=== PATIENT | female | born 1960 | race American Indian/Alaskan Native ===

== ENCOUNTER → 2018-01-18 07:03 | Day surgery (SDC) | payer MEDICAID, OTHER, SELFPAY ==
[2018-01-18] VITALS (7 sets, daily range): BP systolic 81–141; BP diastolic 43–93; PULSE 78–95; RESP 14–16; TEMP 36.4–36.8; O2SAT 95–98; BMI 49.0
--- NOTE | 2018-01-18 | PATH_ITS ---
[facility] Accession Number: [id number] . 01 Material submitted: . ANTRUM BIOPSIES . 02 Diagnosis: Biopsies Gastric Antrum: Mild chronic gastritis. Negative for evidence of Helicobacter on H/E stain. Negative for intestinal metaplasia. Negative for dysplasia and malignancy. [facility]/01/19/2018 . 02 Electronically signed: . Kelechi Rivera MD, Pathologist NPI- [id number] . 01 Gross description: . Received in one formalin-filled container, labeled with the patient's name, labeled antrum, are four less than 0.1 cm to 0.3 cm portions of tissue, entirely submitted in one cassette. ([id number]) /FRR . 02 Pathologist provided ICD-10: K29.70 . 02 CPT . 474392 Performed at: 01 [facility] [address] [id number] MD Sivakumar Landeros MD Phone: [phone] Performed at: 02 [facility] [address] [place], [place] [id number] MD Rodney Urena MD Phone: [phone]
[2018-01-18] MEDS: SODIUM CHLORIDE 0.9% 1,000 ML 200 ML IV (07:45)
--- NOTE | 2018-01-18 07:52 | PM.HP.1 ---
History of Present Illness Date Patient Seen: 01/18/18 Time Patient Seen: 07:52 Chief complaint: EGD [id number] Narrative: HISTORY OF PRESENT ILLNESS: A 56-year-old obese female recently evaluated for diarrhea and excessive belching and gastric bloating by her primary physician who presents now for further evaluation. She states that her symptoms first began when she was started on Lamictal for depression. She had progressively increasing doses of the medication beginning at 50 mg, then 100 mg, then 150 mg. She noticed that with each increase in her dose, over time her symptoms were exacerbated. She was eventually discontinued from the Lamictal and took her last dose approximately 8 days ago now. Her diarrhea symptoms have completely resolved but she continues to have significant issues with belching and retrosternal heartburn. Her major concern is the frequency of the belching. She states that any food, either solid or liquid, will result in these symptoms. She has had no nausea or vomiting, however. Denies any abdominal pain elsewhere. No unanticipated weight loss. No history of melena, hematochezia, or bright red blood per rectum. PAST MEDICAL HISTORY: 1. Depression. 2. Anxiety. 3. Hypertension. 4. Obesity. 5. Type 2 diabetes mellitus. 6. Diverticulitis in the past. She denies any coronary disease, stroke, or myocardial infarction. PAST SURGICAL HISTORY: 1. Sigmoid colectomy with laparoscopic-assisted approach approximate 2010. 2. Bilateral tubal ligation. 3. Right knee replacement. 4. Open cholecystectomy. 5. Tonsillectomy. 6. Colonoscopy, 2010, which he reports was normal other than diverticula. FORMERLY [facility], 1928–1983 Social History household members: family Meds Home Medications Medication Instructions Recorded Confirmed Type lamotrigine [Lamictal] #0 11/19/17 History Nebulizer: Home Unit See Label Instructions .ROUTE 01/18/18 01/18/18 History .COMPLEX Neurontin 200 mg PO DAILY 01/18/18 01/18/18 History albuterol sulfate [Proventil HFA] 0 INH Q4HP PRN MDD unknown 01/18/18 History cyclobenzaprine 10 mg PO QDAY 01/18/18 01/18/18 History omeprazole 40 mg PO DAILY 01/18/18 01/18/18 History Allergies Allergy/AdvReac Type Severity Reaction Status Date / Time amoxicillin [AMOXICILLIN] Allergy Severe RASH Unverified 12/16/17 11:50 latex [LATEX] Allergy Severe HIVES, Unverified 12/16/17 11:50 RESPIRATORY DISTRESS levalbuterol [LEVALBUTEROL] Allergy Severe AIRWAY Unverified 12/16/17 11:50 OCCLUSION Penicillins [PENICILLINS] Allergy Severe RASH Unverified 12/16/17 11:50 duloxetine [DULOXETINE] AdvReac Mild AGITATION Unverified 12/16/17 11:50 Review of Systems Review of Systems All systems reviewed & are unremarkable except as noted in HPI and below Exam Vital Signs (past 8 hours): Vital Signs - 8 hr 01/18/18 07:28 Temperature 98.0 F Pulse Rate 95 H Respiratory Rate 16 Blood Pressure 141/93 H Pulse Oximetry 96 Pulse Oximetry 96 Oxygen Delivery Method Room Air Narrative Exam Narrative: No acute distress. Alert oriented x3. Obese Regular rate and rhythm Abdomen soft, nondistended, nontender, no masses Extremities show no clubbing or cyanosis Assessment & Plan Plan: Plan: IMPRESSION: A 56-year-old female with upper gastrointestinal symptoms consisting of intractable belching and reflex disease. She is receiving maximal medical management without significant relief. PLAN: I discussed my impression and findings with the patient in detail. I suspect that the side effects of the Lamictal may have some causal element. However, there is clearly the possibility of ulcer disease or even diabetic gastroparesis. Because of her reflex, there is a possibility of Xie esophagus as well which is a concern for her today. I therefore recommend EGD with potential biopsy. Technical details of the procedure were discussed. Risks, benefits, and alternatives were explained. Risks including, but not limited to, sedation, aspiration, bleeding, pain, missed lesion, esophageal perforation, gastric perforation, duodenal perforation, need for major thoracic surgery, need for major abdominal surgery, and all attendant risks of major surgery were explained in detail. I also explained that the study may be entirely nondiagnostic. If there is no clear etiology for her symptoms, then she may benefit from nuclear gastric emptying scan which also explained to her today. All questions were answered to her satisfaction, and she voiced understanding. Consent was placed on the chart. We will proceed as above.
--- NOTE | 2018-01-18 07:54 | PM.PREOP ---
Pre-operative Note Interval Note Pre-op Check: History & Physical Reviewed, Exam Performed and History & Physical exam performed today H&P completed within 30 days and has changed as indicated here:: H and P in chart today. ASA Class (for procedural sedation): II
[2018-01-18] MEDS: MIDAZOLAM 5 MG/5 ML VIAL IV (08:21)
--- NOTE | 2018-01-18 08:24 | PM.OP.ENDO ---
Operative Date/Time/Diagnoses - Date of procedure: 01/18/18 Time of procedure: 08:25 Pre-op diagnosis: Dysphagia and reflux Post-op diagnosis: same Procedure & Clinicians Study performed: 1. Esophagogastroduodenoscopy with cold forceps biopsy 2. Sedation per surgeon Same procedure as scheduled: Yes Indications: 57-year-old female with significant reflux symptoms refractory to medical management. EGD was recommended. Surgeon: Que Covarrubias Procedure Notes SCOAP/Timeout: Yes/ 08:10 Procedure in detail: After obtaining informed consent, the patient was brought to the GI suite and placed in the left lateral decubitus position on the examination table. After placement of appropriate monitors, the patient was given incremental doses of Versed and Fentanyl until an appropriate level of sedation was achieved. A time out was held per SCOAP protocol. A bite block was gently placed between the patient's teeth. The endoscope was lubricated and then passed into the patient's posterior oropharynx. The esophagus was cannulated under direct vision and the scope was passed to the second portion of the duodenum without difficulty. The scope was then withdrawn with careful examination of all areas of the upper GI tract and mucosa. In the stomach, the instrument was retroflexed and the GE junction examined. The scope was straightened and the procedure continued with examination of the remainder of the upper GI tract. Findings are noted above. Air was aspirated from the stomach and the endoscope gently removed from the esophagus. The patient was allowed to awaken from sedation without difficulty and taken to the post-anesthesia care unit in good condition. Scope withdrawal time: Not applicable Sedation minutes: 7 Findings: gastritis and other findings (1. No ulcer disease 2. No neoplastic disease 3. No esophagitis with Z-line at 40 cm from incisors 4. Normal duodenum) Specimen(s): other (Antral biopsies) Complications: none Recommendations: No ASA/NSAIDS and Continue medication(s) Follow up: weeks (Two weeks with Dr. Covarrubias) Disposition: PACU
[2018-01-18] MEDS: LIDOCAINE 4% SOLN 50 ML 20 ML TOP (08:30)
[2018-01-18] MEDS: TETRACAINE/BENZOCAINE/BUTAMBEN (CETACAINE) BOTTLE 1 SPRAY TOP (08:32)
[2018-01-18] MEDS: fentaNYL 250 MCG/5 ML INJ IV (08:35)
== END | disposition home or self-care (01) ==
PROVIDERS: Family Provider Family Medicine; PCP Family Medicine; Visit Provider Surgery
PROC: 0DJ08ZZ Inspection of Upper Intestinal Tract, Via Natural or Artificial Opening Endoscopic (ICD-10-PCS; CPT 43235; principal; 2018-01-18 07:45)
DX: K29.70 Gastritis, unspecified, without bleeding (principal); R13.10 Dysphagia, unspecified; K21.9 Gastro-esophageal reflux disease without esophagitis; E66.9 Obesity, unspecified; R19.7 Diarrhea, unspecified; R14.2 Eructation; F41.9 Anxiety disorder, unspecified; I10 Essential (primary) hypertension; E11.9 Type 2 diabetes mellitus without complications
CPT/HCPCS: 43239; 88305; 99152; J2250; J3010

== ENCOUNTER 2018-05-17 12:30 | Outpatient (RCR) | payer MEDICAID, OTHER, SELFPAY ==
--- NOTE | 2018-01-29 15:23 | PT.OTN ---
Physical Therapy Treatment Note PT-OP-A Visit Information Start: 01/29/18 07:59 Freq: Status: Active Protocol: Document 01/29/18 12:30 SAK (Rec: 01/29/18 15:23 [facility] [id number]) Out-Patient Physical Therapy Visit Information Visit Information Visit Type Treatment Note Visit Start Time 12:30 Visit Stop Time 13:15 Total Visit Minutes 45 Visit Number 2 Number of OCCUPATIONAL HYGIENIST Visits 0 Evaluation Information Evaluation Date 12/29/17 PT-OP-C Subjective Start: 01/29/18 07:59 Freq: Status: Active Protocol: Document 01/29/18 12:30 SAK (Rec: 01/29/18 15:23 [facility] [id number]) OP-PT Subjective Patient Comments Patient Comments Patient excited to start aquatic therapy; hoping to decrease her pain and improve her activity tolerance. Wants to start graduate school in the fall. Reports cues for T- Christopher arms during functional activities very helpful for body mechanics. PT-OP-S Aquatic Treatment Start: 01/29/18 07:59 Freq: Status: Active Protocol: Document 01/29/18 12:30 SAK (Rec: 01/29/18 15:23 [facility] [id number]) Aquatics Treatment Pool Entry/Exit Pool Entry/Exit Method Stairs Assistance Standby Assistance Water Walking Marching Water Level Chest Level Walking Equipment none Level of Assistance Verbal Cues Sideways Water Level Chest Level Walking Equipment none Level of Assistance Verbal Cues Backwards Water Level Chest Level Walking Equipment none Level of Assistance Verbal Cues Forwards Water Level Chest Level Walking Equipment none Level of Assistance Verbal Cues Lower Extremity Exercises 2 Details squats Body Position Standing Water Level Chest Level 1 Details standing hip flex/ext, ab/ad, circles CW and CCW Body Position Standing Water Level Chest Level Lower Extremity Stretches 2 Details hamstring stretch Body Position Standing Water Level Chest Level Equipment Ankle Floats; small Reps/Duration 2 1 Details SKTC, DKTC Body Position Standing Water Level [place] Equipment Small Noodle Reps/Duration 2 Upper Extremity Exercises 1 Details standing hor ab/ad, flex ext Body Position Standing Water Level Chest Level [place] Activities [place] Activities Bicycle Equipment small noodle Duration 12 min Comments verbal and manual cues Other 1 Details deep water hang Body Position Standing Water Level [place] Equipment small noodle Reps/Duration 2 min PT-OP-T Assessment and Plan Start: 01/29/18 07:59 Freq: Status: Active Protocol: Document 01/29/18 12:30 LUCIO (Rec: 01/29/18 15:23 LUCIO [id number]) Physical Therapy Assessment Assessment Summary Assessment Moderate cues for postural alignment and core stabilization during all activities. Responds well to verbal and manual cues. Physical Therapy Plan Frequency and Duration Frequency of Treatment 2x/Week Duration of Treatment 2 months Plan of Care Start Date 12/29/17 Plan of Care End Date 02/28/18 Next Visit Focus/Plan Next Note Type Treatment Note Next Visit Plan Eval response to first aquatic PT session and progress as tolerated. Please Sign and Return: I have reviewed this Plan of Care and certify that the skilled therapy services above are required to meet the patient???s needs. Physician Signature Date Printed Name and Credentials Clinical Instructor Signature Printed Name and Credentials
--- NOTE | 2018-05-05 15:47 | PT.OTN ---
Current Diagnoses Spinal stenosis, lumbosacral region (01/29/18) Low back pain (01/29/18) Abnormal posture (01/29/18) Weakness (01/29/18) Physical Therapy Treatment Note PT-OP-A Visit Information Start: 01/29/18 07:59 Freq: Status: Active Protocol: Document 05/05/18 11:30 CLB (Rec: 05/05/18 15:47 CLB [email or web address]) Out-Patient Physical Therapy Visit Information Visit Information Visit Type Treatment Note Visit Start Time 11:30 Visit Stop Time 12:15 Visit Number 3 Number of MEAT WRAPPER Visits 1 PT-OP-C Subjective Start: 01/29/18 07:59 Freq: Status: Active Protocol: Document 05/05/18 11:30 CLB (Rec: 05/05/18 15:47 CLB [email or web address]) OP-PT Subjective Patient Comments Patient Comments Pt happy to be back in the pool. Pt reporting pain in her left hip after hauling rock by pulling them sideways. PT-OP-S Aquatic Treatment Start: 01/29/18 07:59 Freq: Status: Active Protocol: Document 05/05/18 11:30 CLB (Rec: 05/05/18 15:47 CLB [email or web address]) Aquatics Treatment Pool Entry/Exit Pool Entry/Exit Method Stairs Assistance Standby Assistance Water Walking Backwards Water Level Chest Level Walking Equipment none Level of Assistance Verbal Cues Forwards Water Level Chest Level Level of Assistance Verbal Cues Lower Extremity Exercises 2 Details squats Body Position Standing Water Level Chest Level 1 Details standing hip flex/ext, circles CW and CCW Body Position Standing Water Level Chest Level Comments no ab/add due to L hip pain. Lower Extremity Stretches 2 Details hamstring stretch Body Position Standing Water Level Chest Level Equipment Ankle Floats Reps/Duration 2 Upper Extremity Exercises 1 Details standing hor ab/ad, flex ext Body Position Standing Water Level Chest Level PT-OP-T Assessment and Plan Start: 01/29/18 07:59 Freq: Status: Active Protocol: Document 05/05/18 11:30 CLB (Rec: 05/05/18 15:47 CLB [email or web address]) Physical Therapy Assessment Assessment Summary Assessment Pt needing cues for posture and core activation with deep water and ther ex. Physical Therapy Plan Frequency and Duration Frequency of Treatment 2x/Week Duration of Treatment 2 months Plan of Care Start Date 12/29/17 Plan of Care End Date 02/28/18 Next Visit Focus/Plan Next Note Type Treatment Note Next Visit Plan Progress as tolerated.
--- NOTE | 2018-05-12 09:33 | PT.OTRE ---
Current Diagnoses Spinal stenosis, lumbosacral region (01/29/18) Low back pain (01/29/18) Abnormal posture (01/29/18) Weakness (01/29/18) Provider Visit Care Team Role Provider Type Roverto See MD Attending Provider Physician Family Provider Primary Care Provider Specialty: Family Practice Address: [address] [place] [address], [facility] Email: Physical Therapy Re-Evaluation PT-OP-A Visit Information Start: 01/29/18 07:59 Freq: Status: Active Protocol: Document 05/05/18 11:30 CLB (Rec: 05/05/18 15:47 CLB [email or web address]) Out-Patient Physical Therapy Visit Information Visit Information Visit Type Treatment Note Visit Start Time 11:30 Visit Stop Time 12:15 Visit Number 3 Number of PARTS PULLER Visits 1 PT-OP-C Subjective Start: 01/29/18 07:59 Freq: Status: Active Protocol: Document 05/05/18 11:30 CLB (Rec: 05/05/18 15:47 CLB [email or web address]) OP-PT Subjective Patient Comments Patient Comments Pt happy to be back in the pool. Pt reporting pain in her left hip after hauling rock by pulling them sideways. PT-OP-T Assessment and Plan Start: 01/29/18 07:59 Freq: Status: Active Protocol: Document 05/05/18 11:30 CLB (Rec: 05/05/18 15:47 CLB [email or web address]) Physical Therapy Assessment Assessment Summary Assessment Pt needing cues for posture and core activation with deep water and ther ex. Physical Therapy Plan Frequency and Duration Frequency of Treatment 2x/Week Duration of Treatment 2 months Plan of Care Start Date 12/29/17 Plan of Care End Date 02/28/18 Next Visit Focus/Plan Next Note Type Treatment Note Next Visit Plan Progress as tolerated.
--- NOTE | 2018-05-12 09:33 | PT.OPPOC ---
Current Diagnoses Spinal stenosis, lumbosacral region (01/29/18) Low back pain (01/29/18) Abnormal posture (01/29/18) Weakness (01/29/18) Provider Visit Care Team Role Provider Type Roverto See MD Attending Provider Physician Family Provider Primary Care Provider Specialty: Family Practice Address: [address] [place] [address] Email: Plan Of Care PT-OP-T Assessment and Plan Start: 01/29/18 07:59 Freq: Status: Active Protocol: Document 05/05/18 11:30 CLB (Rec: 05/05/18 15:47 CLB [email or web address]) Physical Therapy Assessment Assessment Summary Assessment Pt needing cues for posture and core activation with deep water and ther ex. Physical Therapy Plan Frequency and Duration Frequency of Treatment 2x/Week Duration of Treatment 2 months Plan of Care Start Date 12/29/17 Plan of Care End Date 02/28/18 Next Visit Focus/Plan Next Note Type Treatment Note Next Visit Plan Progress as tolerated. Plan of Care Dates Plan of Care Start Date 05/05/18 Plan of Care End Date 08/05/18 Please Sign and Return: I have reviewed this Plan of Care and certify that the skilled therapy services above are required to meet the patient?s needs. Physician Signature Date Printed Name and Credentials Clinical Instructor Signature Printed Name and Credentials
--- NOTE | 2018-05-17 15:32 | PT.OTN ---
Current Diagnoses Spinal stenosis, lumbosacral region (05/17/18) Low back pain (05/17/18) Abnormal posture (05/17/18) Weakness (05/17/18) Physical Therapy Treatment Note PT-OP-A Visit Information Start: 01/29/18 07:59 Freq: Status: Active Protocol: Document 05/17/18 12:30 LJ (Rec: 05/17/18 15:32 LJ [email or web address]) Out-Patient Physical Therapy Visit Information Visit Information Visit Type Treatment Note Number of LEGAL OFFICE ADMINISTRATOR Visits 1 PT-OP-C Subjective Start: 01/29/18 07:59 Freq: Status: Active Protocol: Document 05/17/18 12:30 LJ (Rec: 05/17/18 15:32 LJ [email or web address]) OP-PT Subjective Patient Comments Patient Comments Pt reported having cortisone injection in L hip on Thursday. States her hip feels good and currently has no pain. She reported that she fell on Thursday and now her R knee is painful. PT-OP-S Aquatic Treatment Start: 01/29/18 07:59 Freq: Status: Active Protocol: Document 05/17/18 12:30 LJ (Rec: 05/17/18 15:32 LJ [email or web address]) Aquatics Treatment Pool Entry/Exit Pool Entry/Exit Method Stairs Assistance Standby Assistance Water Walking Other- 1 Water Level Chest Level Level of Assistance Standby Assistance Comments circumduction legs Marching Water Level Chest Level Walking Equipment none Level of Assistance Verbal Cues Sideways Water Level Chest Level Walking Equipment none Level of Assistance Verbal Cues Comments stepping over object pattern Backwards Water Level Chest Level Walking Equipment none Level of Assistance Verbal Cues Forwards Water Level Chest Level Level of Assistance Verbal Cues Lower Extremity Exercises 2 Details squats Body Position Standing Water Level Chest Level 1 Details standing hip flex/ext, ab/ad, circles CW and CCW Body Position Standing Water Level Chest Level Comments abd/add ok d/t injection Lower Extremity Stretches 2 Details hamstring stretch Body Position Standing Water Level Chest Level Reps/Duration 2 1 Details SKTC, DKTC Body Position Standing Water Level Chest Level Reps/Duration 2 Upper Extremity Exercises 1 Details standing hor ab/ad, flex ext Body Position Standing Water Level Chest Level Olds Activities Olds Activities Bicycle [place] Hip Abduction/Adduction Sit Kicks Equipment small noodle Comments cues for posture PT-OP-T Assessment and Plan Start: 01/29/18 07:59 Freq: Status: Active Protocol: Document 05/17/18 12:30 ADELAIDE (Rec: 05/17/18 15:32 ADELAIDE [email or web address]) Physical Therapy Assessment Assessment Summary Assessment Pt experienced repeated cramping of LLE during stretching. Tolerated abd/add of LEs w/o pain. Physical Therapy Plan Frequency and Duration Frequency of Treatment 2x/Week Duration of Treatment 3 months Plan of Care Start Date 05/05/18 Plan of Care End Date 08/05/18 Therapeutic Interventions Therapeutic Interventions Aquatic Therapy Patient/Caregiver Education Self-Care/Home Management Next Visit Focus/Plan Next Note Type Treatment Note Next Visit Plan Aquatic therapy for pain management, strengthing, ROM.
--- NOTE | 2018-06-11 14:52 | PT.OTN ---
Current Diagnoses Spinal stenosis, lumbosacral region (05/17/18) Low back pain (05/17/18) Abnormal posture (05/17/18) Weakness (05/17/18) Physical Therapy Treatment Note PT-OP-A Visit Information Start: 01/29/18 07:59 Freq: Status: Active Protocol: Document 06/11/18 14:42 SAK (Rec: 06/11/18 14:51 SAK [id number]) Out-Patient Physical Therapy Visit Information Visit Information Visit Type Treatment Note Total Visit Minutes 45 Number of SENIOR STEREO COMPILER TEAM LEAD Visits 1 Evaluation Information Evaluation Date 12/29/17 PT-OP-C Subjective Start: 01/29/18 07:59 Freq: Status: Active Protocol: Document 06/11/18 14:42 SAK (Rec: 06/11/18 14:51 SAK [id number]) OP-PT Subjective Patient Comments Patient Comments States she and her mother went on trip to [facility], did a lot of walking and picking up agates off the beach; back and hip more sore. Glad to come to aquatic therapy. PT-OP-S Aquatic Treatment Start: 01/29/18 07:59 Freq: Status: Active Protocol: Document 06/11/18 14:42 SAK (Rec: 06/11/18 14:51 SAK [id number]) Aquatics Treatment Pool Entry/Exit Pool Entry/Exit Method Stairs Assistance Standby Assistance Water Walking Sideways Water Level Chest Level Walking Equipment none Level of Assistance Verbal Cues Comments stepping over object pattern Forwards Water Level Chest Level Level of Assistance Verbal Cues Lower Extremity Exercises 2 Details squats Body Position Standing Water Level Chest Level 1 Details standing hip circles Reps/Duration 10x ea CW, CCW Lower Extremity Stretches 2 Details hamstring stretch Body Position Standing Water Level Chest Level Reps/Duration 2 1 Details SKTC, DKTC Body Position Standing Water Level Chest Level Reps/Duration 2 Upper Extremity Exercises 1 Details standing hor ab/ad, flex ext Body Position Standing Water Level Chest Level Comments core stabilization emphasis [place] Activities [place] Activities Bicycle Cross [place] Running Hip Abduction/Adduction Sit Kicks Equipment belt Comments added 4 cycles of interval running 30:30 tethered 28 min total in deep water PT-OP-T Assessment and Plan Start: 01/29/18 07:59 Freq: Status: Active Protocol: Document 06/11/18 14:42 SAK (Rec: 06/11/18 14:51 [facility] [id number]) Physical Therapy Assessment Assessment Summary Assessment Increased exercise tolerance with patient demonstrating improved postural awareness. Initially required physical and verbal cues for stability using flotation belt. Physical Therapy Plan Frequency and Duration Frequency of Treatment 2x/Week Duration of Treatment 3 months Plan of Care Start Date 05/05/18 Plan of Care End Date 08/05/18 Therapeutic Interventions Therapeutic Interventions Aquatic Therapy Patient/Caregiver Education Self-Care/Home Management Next Visit Focus/Plan Next Note Type Treatment Note Next Visit Plan Continue progression of aquatic therapy, add resistance fins as tolerated.
--- NOTE | 2018-08-27 14:34 | PT.OPDS ---
Current Diagnoses Spinal stenosis, lumbosacral region (05/17/18) Low back pain (05/17/18) Abnormal posture (05/17/18) Weakness (05/17/18) Provider Visit Care Team Role Provider Type Roverto See MD Attending Provider Physician Family Provider Primary Care Provider Specialty: Family Practice Address: [address] [place] [address], [facility] Email: Visit Number Visit Number 3 Discharge Summary PT-OP-C Subjective Start: 01/29/18 07:59 Freq: Status: Active Protocol: Document 06/11/18 14:42 SAK (Rec: 06/11/18 14:51 SAK [id number]) OP-PT Subjective Patient Comments Patient Comments States she and her mother went on trip to [facility], did a lot of walking and picking up agates off the beach; back and hip more sore. Glad to come to aquatic therapy. PT-OP-T Assessment and Plan Start: 01/29/18 07:59 Freq: Status: Active Protocol: Document 08/27/18 14:32 SAK (Rec: 08/27/18 14:34 SAK [id number]) Physical Therapy Assessment Assessment Summary Assessment Patient has not attended PT for 2 months, able to perform aquatic exercises independently at this time; should do well with continued independent aquatic exercise. Physical Therapy Plan Discharge Physical Therapy Discharge Reasons No Longer Attending PT Discharge Comments May benefit from further PT in the future.
== END 2018-09-13 15:41 | disposition home or self-care (01) ==
LOC: PHYS 12:30
PROVIDERS: Family Provider Family Medicine; PCP Family Medicine; Visit Provider Family Medicine
DX: M54.5 Low back pain (principal); M48.07 Spinal stenosis, lumbosacral region; R53.1 Weakness; R29.3 Abnormal posture
CPT/HCPCS: 97113

== ENCOUNTER → 2018-08-04 15:10 | Outpatient (CLI) | payer OTHER, SELFPAY ==
--- NOTE | 2018-08-04 | DI.ECHO.S_ITS ---
[place] [facility] +---------+ : : [address] : : : : [id number] : : : : Phone: [phone] Echocardiogram Report + + :Name: SEAN COLLADO Study Date: 08/04/2018 Height: 64 in : :[facility] Exam Location: [facility] Weight: 266 lb : : Gender: Female BSA: 2.2 m2 : :: 1960 Age: 57 yrs BP: 122/82 mmHg: :Reason For Study: Peripheral Edema : :Ordering Physician: Esperanza : :Kumar Performed By: Nury Sorenson : :Referring: ESPERANZA TIERNEY : + + Interpretation Summary The left ventricle is normal in size. The ejection fraction is estimated to be 60-65%. The right ventricle is normal in size and function. No significant valvular pathology seen. The IVC is of normal diameter and collapses greater than 50% with a sniff. This suggests a low right atrial pressure of 3 mm Hg. Procedure: A two-dimensional transthoracic echocardiogram with color flow and Doppler was performed. The study quality was technically adequate. There is no prior echocardiogram noted for this patient. The patient was in normal sinus rhythm during the exam. Left Ventricle: The left ventricle is normal in size. There is mild-moderate concentric left ventricular hypertrophy. There is no thrombus. The ejection fraction is estimated to be 60-65%. There are no focal wall motion abnormalities. Diastolic parameters suggest a relaxation abnormality of the left ventricle, consistent with probable normal filling pressures. Right Ventricle: The right ventricle is normal in size and function. Atria: Both atria are normal in size. The interatrial septum is intact with no evidence for an atrial septal defect. Mitral Valve: The mitral valve leaflets are slightly calcified. The mitral valve chordae are thickened and/or calcified. There is trace mitral regurgitation. Aortic Valve: The aortic valve opens well. The aortic valve is not well visualized. The aortic valve is grossly normal. There is no aortic valve stenosis. No aortic regurgitation is present. Tricuspid Valve: The tricuspid valve is not well visualized, but is grossly normal. Pulmonary artery pressures cannot be estimated because of the lack of a measurable TR jet velocity. There is trace tricuspid regurgitation. Pulmonic Valve: The pulmonic valve is not well seen, but is grossly normal. There is trace pulmonic regurgitation. Great Vessels: The ascending aorta is normal in size. The IVC is of normal diameter and collapses greater than 50% with a sniff. This suggests a low right atrial pressure of 3 mm Hg. Pericardium/ Pleura There is no pericardial effusion. There is an anterior echo-free space consistent with a fat pad. There is no pleural effusion. MMode/2D Measurements & Calculations LVIDd: 4.5 cm LVOT diam: 2.2 cm LVIDs: 2.8 cm asc Aorta Diam: 3.5 cm FS: 36.3 % Ao Arch Diam (Prox Trans): 2.7 cm EPSS: 0.45 cm IVSd: 1.2 cm LVPWd: 1.4 cm LV mccoy. diameter/BSA (cm/m^2): 2.0 LV sys. diameter/BSA (cm/m^2): 1.3 LA A2 area: 18.3 cm2 RA long axis: 4.0 cm LA A4 area: 21.1 cm2 RA area: 14.6 cm2 LA length (vol): 5.2 cm RA vol: 45.4 ml LA vol: 63.0 ml RA : 20.6 ml/m2 LA vol index: 28.5 ml/m2 TAPSE: 2.5 cm Doppler Measurements & Calculations Ao V2 max: 130.1 cm/sec LVOT Max Terry: 94.0 cm/sec Ao V2 mean: 85.9 cm/sec LV V1 max P.5 mmHg Ao max P.8 mmHg LV V1 VTI: 14.0 cm Ao mean P.3 mmHg CHICA(I,D): 2.7 cm2 Ao V2 VTI: 20.0 cm CHICA(V,D): 2.8 cm2 sev ratio: 0.70 CHICA indexed to BSA (cm^2/m^2): 1.2 MV E max terry: 53.6 cm/sec PA V2 max: 66.9 cm/sec MV A max terry: 62.0 cm/sec PA V2 mean: 41.8 cm/sec MV E/A: 0.86 PA mean P.81 mmHg Med Peak E' Terry: 7.4 cm/sec PA pr(Accel): 27.4 mmHg E/E' med: 7.3 Lat Peak E' Terry: 11.9 cm/sec E/E' lat: 4.5 E/e' average: 5.9 MV dec time: 0.15 sec Reading Physician:JESSE
== END ==
PROVIDERS: Visit Provider Physician Assistant
DX: R60.0 Localized edema (principal)
CPT/HCPCS: 93306

== ENCOUNTER → 2018-10-25 13:54 | Outpatient (CLI) | payer MEDICARE, OTHER, SELFPAY ==
--- NOTE | 2018-10-25 | DI.MG.S_ITS ---
BILATERAL DIGITAL SCREENING MAMMOGRAM 3D/2D WITH CAD: 10/25/2018 CLINICAL: Routine screening. Family history of breast cancer. Comparison is made to exams dated: 10/15/2017 mammogram, 01/22/2015 mammogram, and 01/19/2014 mammogram - [facility]. There are scattered fibroglandular elements in both breasts. Current study was also evaluated with a Computer Aided Detection (CAD) system. There are benign vascular calcifications in both breasts. No significant masses, calcifications, or other findings are seen in either breast. There has been no significant interval change. IMPRESSION: There is no mammographic evidence of malignancy. A 1 year screening mammogram is recommended. This exam was interpreted at Station ID: [id number]. NOTE: For mammograms, a report in lay terms will be sent to the patient. Approximately 15% of breast malignancies will not be visualized mammographically. In the management of a palpable breast mass, a negative mammogram must not discourage biopsy of a clinically suspicious lesion. Electronically Signed By: Chang montgomery/massimo:10/25/2018 17:47:12 copy to: Roverto See letter sent: Normal Exam ACR BI-RADS Category 2: Benign Finding(s) 3342F
== END ==
PROVIDERS: PCP Physician Assistant; Visit Provider Physician Assistant
DX: Z12.31 Encounter for screening mammogram for malignant neoplasm of breast (principal); Z80.3 Family history of malignant neoplasm of breast
CPT/HCPCS: 77063; 77067

== ENCOUNTER → 2019-02-02 11:54 | Outpatient (CLI) | payer MEDICARE, OTHER, SELFPAY ==
[2019-02-02 12:52] LABS: Add Manual Diff / Slide Review NO; Basophils Absolute Auto 100 /uL (0-100); Basophils Percent Auto 0.8 % (0-2); Eosinophils Absolute Auto 400 /uL (0-450); Eosinophils Percent Auto 3.6 % (2-4); Hematocrit 38.6 % (36-46); Hemoglobin 12.4 g/dL (12.0-16.0); Lymphocytes Absolute Auto 3700 /uL (1100-4500); Lymphocytes Percent Auto 29.5 % (25-40); Mean Corpuscular HGB Conc 32.1 % (30-36); Mean Corpuscular Hemoglobin 24.7 PG (26-34); Mean Corpuscular Volume 76.8 fL (80-100); Monocytes Absolute Auto 800 /uL (0-900); Monocytes Percent Auto 6.4 % (3-14); Neutrophils Absolute Auto 7400 /uL (1500-7000); Neutrophils Percent Auto 59.7 % (50-75); Platelet Count 317 X10^3/uL (150-400); Red Blood Cell Count 5.03 X10^6/uL (4.0-5.2); Red Cell Distribution Width 15.2 % (11.6-14.8); White Blood Cell Count 12.4 X10^3/uL (4.5-11.0)
[2019-02-02 13:18] LABS: Alanine Aminotransferase 29 IU/L (9-52); Albumin 4.5 g/dL (3.5-5.0); Albumin Globulin Ratio 1.7 (1.0-2.8); Alkaline Phosphatase 99 U/L (38-126); Aspartate Aminotransferase 30 IU/L (14-36); BUN Creatinine Ratio 13.8 (6-22); Bilirubin Total 0.5 mg/dL (0.2-1.3); Blood Urea Nitrogen 11 mg/dL (7-17); Calcium 9.9 mg/dL (8.4-10.2); Carbon Dioxide 30 mmol/L (22-32); Chloride 100 mmol/L (98-107); Estimated Glomerular Filt Rate > 60.0 mL/min (>60); Globulin 2.7 g/dL (1.7-4.1); Glucose 106 mg/dL (70-100); HEMOLYSIS 19 (0-50); Potassium 4.9 mmol/L (3.4-5.1); Sodium 138 mmol/L (137-145); Total Protein 7.2 g/dL (6.3-8.2)
[2019-02-02 13:47] LABS: Thyroid Stimulating Hormone 0.14 uIU/mL (0.47-4.68)
[2019-02-02 17:21] LABS: Free T3, Triiodothyronine Free 4.03 pg/mL (2.77-5.27); Free T4, Direct Thyroxine 1.11 ng/dL (0.78-2.19)
== END ==
PROVIDERS: PCP Physician Assistant; Visit Provider Physician Assistant
DX: E11.9 Type 2 diabetes mellitus without complications (principal); R63.5 Abnormal weight gain; D64.9 Anemia, unspecified; F41.1 Generalized anxiety disorder
CPT/HCPCS: 36415; 80053; 84439; 84443; 84481; 85025

== ENCOUNTER → 2019-02-04 06:45 | Outpatient (CLI) | payer MEDICARE, OTHER, SELFPAY ==
--- NOTE | 2019-02-04 07:15 | DI.CT.S_ITS ---
PROCEDURE: CT ABDOMEN PELVIS W CON INDICATIONS: suprapubic soft tissue mass, r/o hernia TECHNIQUE: After the administration of intravenous contrast, 5 mm thick sections acquired from the diaphragm to the symphysis. 5 mm coronal and sagittal reformats were acquired. For radiation dose reduction, the following was used: automated exposure control, adjustment of mA and/or kV according to patient size. COMPARISON: [facility], CT, ABDOMEN/PELVIS WITH CONTRAST, 11/18/2009, 18:16. [facility], CT, ABDOMEN/PELVIS WITH CONTRAST, 10/18/2009, 3:19. FINDINGS: Image quality: Excellent. ABDOMEN: Lung bases: Lung bases are clear. Heart size is normal. Solid organs: Liver is normal in size and enhancement. Gallbladder has been previously resected. Biliary system is non dilated. Pancreas enhances normally. Spleen is normal in size and enhancement. No adrenal nodules. Kidneys demonstrate normal size and enhancement, without hydronephrosis. Peritoneum and bowel: Bowel loops demonstrate normal wall thickness and caliber. No free fluid or air. Nodes and vessels: No retroperitoneal or mesenteric adenopathy by size criteria. Aorta and inferior vena cava are normal in size. Miscellaneous: No ventral hernias. PELVIS: Genitourinary: Bladder wall thickness is normal. Miscellaneous: No inguinal hernias or adenopathy. Bones: No suspicious bony lesions. No vertebral body compression fractures. IMPRESSION: Prior cholecystectomy, no mass or hernia is found. Clinical history suggest possible hernia and the imaging was performed during Valsalva maneuver, yielding no evidence of body wall defect or herniation. Dictated by: Boris Mcintosh M.D. on 02/04/2019 at 13:34 Approved by: Boris Mcintosh M.D. on 02/04/2019 at 13:36
== END ==
PROVIDERS: PCP Physician Assistant; Visit Provider Surgery
DX: R19.09 Other intra-abdominal and pelvic swelling, mass and lump (principal); Z90.49 Acquired absence of other specified parts of digestive tract
CPT/HCPCS: 74177; Q9967

== ENCOUNTER → 2019-02-19 15:49 | Outpatient (CLI) | payer MEDICARE, OTHER, SELFPAY | PROVIDERS: PCP Physician Assistant; Visit Provider Physician Assistant | DX: R30.0 Dysuria (principal) | CPT/HCPCS: 87086 ==

== ENCOUNTER 2019-03-08 07:01 | Day surgery (SDC) | payer MEDICARE, OTHER, SELFPAY ==
[2019-02-23 13:00] VITALS: BMI 48.9
[2019-03-08] VITALS (7 sets, daily range): BP systolic 120–132; BP diastolic 75–82; PULSE 99–106; RESP 16–18; TEMP 36.1–36.4; O2SAT 93–98; BMI 48.9
--- NOTE | 2019-03-08 | PATH_ITS ---
[facility] Accession Number: [id number] . 01 Material submitted: . suprapubic area - SUPRAPUBIC SOFT TISSUE MASS . 01 Clinical history: . EXCISION OF SOFT TISSUE MASS OF ABD WALL . 02 Diagnosis: Suprapubic Soft Tissue Mass, Excision: Mature adipose tissue, consistent with lipoma. No evidence of malignancy. MRV/03/09/2019 . 02 Electronically signed: . Jovan Rubin MD, PhD, Pathologist NPI- [id number] . 01 Gross description: . SUPRAPUBIC SOFT TISSUE MASS: Received in formalin are 2 fragments of newman soft tissue measuring 5.0 x 4.0 x 1.8 cm. Tissue is inked,. Specimen is sectioned and submitted in inventory representative sections in 3 cassettes. /DM /DM . 02 Pathologist provided ICD-10: D17.1 . 02 CPT . 632958 Performed at: 01 [facility] [address] [facility], [place], [place] [id number] MD Sivakumar Landeros MD Phone: [phone] Performed at: 02 [facility] [address] [place], [place] [id number] MD Fariha Patiño MD Phone: [phone]
--- NOTE | 2019-03-08 07:10 | PM.PREOP ---
Pre-operative Note Interval Note History & Physical reviewed/Exam performed by Physician: Yes Changes to H&P: No
[2019-03-08] MEDS: LACTATED RINGERS 1,000 ML 42 ML IV (07:30)
[2019-03-08] MEDS: CEFAZOLIN VIAL 3 GM in SODIUM CHLORIDE 0.9% 100 ML 200 ML IV (08:00)
[2019-03-08] MEDS: BUPIVACAINE 0.5% W/ EPI (PF) VIAL 30 ML INJ (08:37)
--- NOTE | 2019-03-08 08:57 | PM.OP.1 ---
Operative Date/Time/Diagnoses Date of procedure: 03/08/19 Time of procedure: 08:57 Pre-op diagnosis: Soft Tissue Lesion of Suprapubic Abdominal Wall Post-op diagnosis: same Procedure & Clinicians Procedure: Excision of soft tissue lesion of suprapubic abdominal wall Same procedure as scheduled: Yes Indications: 58yo F with an uncomfortable protuberant lesion of her suprapubic abdominal wall. No hernia detected and no signs of malignancy. Pt is symptomatic and would like it removed. Surgeon: Shirlene Tabler Click Yes if Unassisted: Yes Anesthesia Type: General Operative Notes Findings: soft tissue fatty lesion consistent with lipoma Closure Type: primary Specimen(s): other (suprapubic soft tissue lesion ) Procedure in detail: Patient is taken to the OR suite, placed in supine position, and induced to an acceptable level of general anesthesia. The area is prepped and draped in sterile fashion and a timeout performed with the team present. Attention is turned to the lesion in the suprapubic region. Local anesthesia is infiltrated over the site. An incision is made with a 15 blade scalpel longitudinally over the body of the incision. It is carried down through the dermis and subcutaneous tissues using electrocautery. Excess fatty tissue protrudes out, consistent with a poorly delineated lipoma of approximately 4x4cm. The excess fatty tissue is removed to allow for a flat closure. The skin flaps of excess skin are removed after measuring for overlap. The field is irrigated and hemostasis ensured. The dermis is closed with 3-0 vicryl in an interrupted fashion and the epidermis with 4-0 monocryl in running fashion. The area is cleaned and dried and skin glue applied. All counts were correct. Patient tolerated the procedure well, was awakened without issue, and taken to PACU hemodynamically stable. Complications: none Condition: stable Disposition: PACU
[2019-03-08] MEDS: OXYCODONE/ACETAMINOPHEN 5/325 TABLET 1 TAB PO (09:07)
--- NOTE | 2019-03-08 09:08 | SUR.PHASEI ---
c/o pain, treated with percocet,
--- NOTE | 2019-03-08 09:20 | SUR.PHASEI ---
stable pacu stay, pubic area c/d/i, ice to area.
== END 2019-03-08 09:50 | disposition home or self-care (01) ==
PROVIDERS: PCP Physician Assistant; Visit Provider Surgery
PROC: (CPT 22903; principal; 2019-03-08 07:45)
DX: D17.1 Benign lipomatous neoplasm of skin and subcutaneous tissue of trunk (principal); J45.909 Unspecified asthma, uncomplicated; E11.9 Type 2 diabetes mellitus without complications; E66.01 Morbid (severe) obesity due to excess calories; Z68.42 Body mass index [BMI] 45.0-49.9, adult; Z79.84 Long term (current) use of oral hypoglycemic drugs
CPT/HCPCS: 22903; 88304; J0690; J1100; J1885; J2250; J2405; J2704; J3010

== ENCOUNTER 2019-03-27 07:57 | Emergency (ER) | payer MEDICARE, OTHER, SELFPAY ==
[2019-03-27 08:08] VITALS: BP 180/85; PULSE 90; RESP 16; TEMP 36.9; O2SAT 98; BMI 48.0
--- NOTE | 2019-03-27 08:17 | ED_ITS ---
HPI - Female Genitourinary General Chief complaint: Urogenital-Female Stated complaint: states bladder infection Time Seen by Provider: 03/27/19 08:04 Source: patient and family Mode of arrival: ambulatory Limitations: no limitations History of Present Illness HPI Narrative: Female nonsmoker presents with a chief complaint of urinary frequency, burning and urgency for the past few days. She denies systemic findings such as nausea, vomiting nor fever, chills or back pain. She just finished a 7 day course of Cipro for a UTI at an outside clinic. She had been off antibiotics for the past 3 days and her symptoms had improved until last night. She does admit to a small amount of vaginal discharge but no bleeding. MD Complaint: dysuria, UTI and vaginal discharge Onset (ago): hour(s) Location: suprapubic Severity: mild Quality: Burning Duration: constant Relieving factors: none Exacerbating factors: none Urinary symptoms: Difficulty Urinating, Dysuria, Frequency and Urgency Patient : No Related Data Home Medications Medication Instructions Recorded Confirmed Nebulizer: Home Unit See Rx Instructions .ROUTE .COMPLEX 01/18/18 02/23/19 albuterol sulfate [Proventil HFA] 1 - 2 puff INH Q4HP PRN MDD unknown 01/18/18 02/23/19 omeprazole 40 mg PO DAILY 01/18/18 03/08/19 ropinirole 0.25 mg tablet 0.25 mg PO BEDTIME 02/02/19 03/08/19 cetirizine 10 mg capsule 10 mg PO DAILY 02/19/19 03/08/19 losartan 50 mg-hydrochlorothiazide 1 tab PO DAILY 02/19/19 03/08/19 12.5 mg tablet venlafaxine 100 mg tablet 225 mg PO DAILY tab 02/19/19 02/23/19 celecoxib [Celebrex] 200 mg PO 1600 03/08/19 03/08/19 Previous Rx's Medication Instructions Recorded albuterol sulfate 3 ml INH Q4HP PRN #1 box 02/05/17 fluticasone propion-salmeterol 1 puff INH BID #60 inh 02/05/17 [Advair Diskus] hydrocodone-acetaminophen [[place]] 1 tab PO TIDP PRN #30 tab 10/30/17 fluticasone propionate 1 spray INTRANASAL BID #16 gm 12/24/17 metformin 500 mg tablet 500 mg PO BIDCC #60 tab 01/25/18 sumatriptan 50 mg tablet See Rx Instructions PO .COMPLEX 05/14/18 #10 tab montelukast 10 mg tablet 10 mg PO QDAY #30 tab 08/03/18 cephalexin [Keflex] 500 mg PO QID 7 Days #28 cap 03/27/19 fluconazole 150 mg PO Q3D 3 Days tab 03/27/19 Allergies Allergy/AdvReac Type Severity Reaction Status Date / Time amoxicillin [AMOXICILLIN] Allergy Severe RASH Verified 03/27/19 08:08 latex [LATEX] Allergy Severe HIVES, Verified 03/27/19 08:08 RESPIRATORY DISTRESS levalbuterol [LEVALBUTEROL] Allergy Severe AIRWAY Verified 03/27/19 08:08 OCCLUSION Penicillins [PENICILLINS] Allergy Severe RASH Verified 03/27/19 08:08 duloxetine [DULOXETINE] AdvReac Mild AGITATION Verified 03/27/19 08:08 Review of Systems Constitutional Denies chills, Denies fever(s), Denies lethargy and Denies weakness Eyes Denies change in vision, Denies eye discharge, Denies irritation and Denies loss of vision ENT Ears, Nose, Mouth, and Throat: Denies change in voice, Denies neck pain and Denies sore throat Cardiovascular Denies chest pain, Denies irregular heart rhythm, Denies lightheadedness, Denies palpitations, Denies dyspnea, Denies dyspnea on exertion and Denies orthopnea Respiratory Denies cough, Denies dyspnea, Denies dyspnea on exertion and Denies wheezing Gastrointestinal Gastrointestinal: Denies abdominal pain, Denies change in bowel habits, Denies diarrhea, Denies nausea and Denies vomiting Genitourinary Denies hematuria, Denies flank pain, Denies urinary incontinence and Denies urinary urgency Musculoskeletal Denies neck pain Integumentary/Breasts Denies pruritus, Denies erythema, Denies rash and Denies wounds Neurologic Denies confusion, Denies loss of vision and Denies weakness Psychiatric Denies anxiety, Denies confusion, Denies depression, Denies homicidal ideation and Denies suicidal ideation Endocrine Denies palpitations Hematologic/Lymphatic Denies easy bruising Allergic/Immunologic Denies wheezing [facility] Medical History Anemia (Acute) Anxiety and depression (Acute) Arthritis (Acute) Asthma (Acute) Chronic pain (Acute) Diabetes (Acute) Diverticulitis (Acute) GERD (gastroesophageal reflux disease) (Acute) HTN (hypertension) (Acute) Hiatal hernia (Acute) MRSA (methicillin resistant Staphylococcus aureus) (Acute ~2010) Metabolic syndrome (Acute) Migraines (Acute) Osteoarthritis (Acute) Peripheral edema (Acute) Recent urinary tract infection (Acute) Vertigo (Acute) Surgical History History of bilateral tubal ligation (Acute) History of colon surgery (Acute ~2010) History of colonoscopy (Acute) Hx of cholecystectomy (Acute) Hx of tonsillectomy (Acute) Social History household members: family Smoking Status: Never smoker Social History household members: family Smoking Status: Never smoker Exam Narrative Exam Narrative: GEN: AOx3 and in mild distress, obviously uncomfortable. Morbidly obese EYES: Pupils are equal, round, and reactive to light and accommodation. Extraoccular muscles are intact bilaterally. There is no subconjunctival hemorrhage or exudate. CHEST: Lungs are clear to auscultation bilaterally and free of wheezes, rales, or rhonchi. Heart rate is regular rhythm, there are no murmurs, clicks, rubs, or gallops. There is no chest wall tenderness. ABD: Abdomen is soft and some mild suprapubic tenderness. There is no guarding or rebound. Bowel sounds are normal in all 4 quadrants. There is no mass or organomegaly. EXT: Full painless ROM of all extremities with no loss of sensation or strength. SKIN: Warm, pink, and dry. No erythema or rash Initial Vital Signs Initial Vital Signs: Vital Signs Temperature 98.4 F 03/27/19 08:08 Pulse Rate 90 03/27/19 08:08 Respiratory Rate 16 03/27/19 08:08 Blood Pressure 180/85 H 03/27/19 08:08 Pulse Oximetry 98 03/27/19 08:08 Course Orders Ordered: ED Orders 03/27/19 08:04 Urine Culture Stat Urine Microscopic Stat Vital Signs - 8 hr 03/27/19 08:08 03/27/19 09:08 Temperature 98.4 F Pulse Rate 90 87 Respiratory Rate 16 20 Blood Pressure 180/85 H 155/99 H Pulse Oximetry 98 97 MDM - Female Genitourinary Lab Data Lab Results 03/27/19 Range/Units 08:04 Urine RBC None seen (0-5/HPF) Urine WBC 5-10/hpf H (0-5/HPF) Ur Squamous Epith Cells 1-5 /hpf (0-5/HPF) Amorphous Sediment 1+ Urine Bacteria Few (2-10) H (None) Ur Culture Indicated? Specimen cultured Urine Dip Bedside Urine Glucose Negative Bedside Urine Bilirubin - Negative Bedside Urine Ketone - Negative Urine Specific [place] 1.015 Bedside Urine Occult Blood - Negative Bedside Urine pH 6.0 Bedside Urine Protein - Negative Bedside Urine Urobilinogen +/- 1mg Bedside Urine Nitrite + Positive Bedside Urine Leukocytes +++ 500 Esterase Discharge Plan Departure Patient Disposition: Home Clinical Impression: Acute UTI Discharge Date/Time: 03/27/19 09:08 Interventions: ED Discharge Assessment Last Done: 03/27/19 09:08 Instructions: DI for Urinary Tract Infection (UTI) Activity Restrictions/Additional Instructions: *You have been diagnosed with [ acute UTI ] *What to do: *Take medications as directed *Follow up with your primary care provider in 2-3 days, call for an appointment. Let them know you were seen in the Emergency Department and that we ask that you be seen in follow up *Return to ER if you should have any new, worsening or concerning symptoms, such as [ ] Prescriptions: New fluconazole 150 mg tablet 150 mg PO Q3D 3 Days RF: 0 cephalexin [Keflex] 500 mg capsule 500 mg PO QID 7 Days Qty: 28 RF: 0 No Action venlafaxine 100 mg tablet 225 mg PO DAILY RF: 0 losartan-hydrochlorothiazide 50-12.5 mg tablet 1 tab PO DAILY RF: 0 Zyrtec 10 mg capsule 10 mg PO DAILY RF: 0 albuterol sulfate 2.5 MG/3 ML solution for nebulization 3 ml INH Q4HP PRNQty: 1 RF: 2 fluticasone propion-salmeterol [Advair Diskus] 250 MCG/50 MCG blister with device 1 puff INH BID Qty: 60 RF: 11 hydrocodone-acetaminophen [[place]] 5 MG/325 MG tablet 1 tab PO TIDP PRNQty: 30 RF: 0 fluticasone propionate 16 GM spray,suspension 1 spray Intranasal BID Qty: 16 RF: 5 metformin [Glucophage] 500 mg tablet 500 mg PO BIDCC Qty: 60 RF: 2 sumatriptan succinate [Imitrex] 50 mg tablet See Rx Instructions PO .COMPLEX Qty: 10 RF: 1 montelukast [Singulair] 10 mg tablet 10 mg PO QDAY Qty: 30 RF: 2 ropinirole 0.25 mg tablet 0.25 mg PO BEDTIME RF: 0 omeprazole 40 mg Capsule,Delayed Release(Dr/Ec) 40 mg PO DAILY RF: 0 albuterol sulfate [Proventil HFA] 90 MCG/PUFF HFA aerosol inhaler 1 - 2 puff INH Q4HP MDD unknown PRN (Reason: Secretions) RF: 0 Nebulizer: Home Unit See Rx Instructions .ROUTE .COMPLEX RF: 0 celecoxib [Celebrex] 200 mg capsule 200 mg PO 1600 RF: 0 Referrals: Esperanza Heath PA-C [Primary Care Provider] -
[2019-03-27 08:25] LABS: RBC Urine None Seen (0-5/HPF)
[2019-03-27 08:42] LABS: Amorphous Sediment Urine 1+; Bacteria Urine Few (2-10); Culture Indicated Urine Specimen Cultured; Squamous Epithelial Cell Urine 1-5 /HPF (0-5/HPF); WBC Urine 5-10/HPF (0-5/HPF)
[2019-03-27 09:08] VITALS: BP 155/99; PULSE 87; RESP 20; O2SAT 97
== END 2019-03-27 09:08 | disposition home or self-care (01) ==
PROVIDERS: Emergency Provider Emergency Medicine; PCP Physician Assistant
DX: N39.0 Urinary tract infection, site not specified (principal)
CPT/HCPCS: 81003; 81015; 87077; 87086; 99282; 99283

== ENCOUNTER → 2019-07-31 16:51 | Outpatient (CLI) | payer MEDICARE, OTHER, SELFPAY | PROVIDERS: PCP Physician Assistant; Visit Provider Nurse Practitioner | DX: R30.0 Dysuria (principal) | CPT/HCPCS: 87086 ==

== ENCOUNTER 2020-01-13 17:01 | Emergency (ER) | payer MEDICARE, OTHER, SELFPAY ==
[2020-01-13 17:17] VITALS: BP 169/95; PULSE 122; RESP 26; TEMP 36.8; O2SAT 96; BMI 61.5
--- NOTE | 2020-01-13 17:17 | DI.RAD.S_ITS ---
PROCEDURE: XR CHEST 2V INDICATIONS: shortness of breath TECHNIQUE: 2 views of the chest were acquired. COMPARISON: [facility], CR, XR CHEST 2V, 01/14/2018, 11:56. FINDINGS: Surgical changes and devices: None. Lungs and pleura: Lungs are clear. No pleural effusions or pneumothorax. Mediastinum: Mediastinal contours are normal. Heart size is normal. Bones and chest wall: No suspicious bony abnormalities. Soft tissues appear unremarkable. IMPRESSION: No acute pulmonary process. Dictated by: Rubia Kerr M.D. on 01/13/2020 at 18:11 Approved by: Rubia Kerr M.D. on 01/13/2020 at 18:11
--- NOTE | 2020-01-13 17:18 | RT ---
ALBUTEROL MDI ORDERED PER VERBAL ORDER BY DOMINGO VALENTIN
[2020-01-13 17:23] VITALS: PULSE 111; RESP 22; O2SAT 95
[2020-01-13] MEDS: ALBUTEROL HFA 60 PUFF/8 GM INH INH (17:23)
--- NOTE | 2020-01-13 17:24 | ED.SOB ---
HPI - SOB/Dyspnea <Radha Lawrence MARKETING ADMINISTRATOR - Last Filed: 01/13/20 21:15> General Chief Complaint: Shortness of Breath/Dyspnea Stated Complaint: SOB EDEMA OF THE LEGS Time Seen by Provider: 01/13/20 17:11 History of Present Illness HPI Narrative: 59yo female with a history of asthma, DM, HTN, MARLEN, and obesity, presents to the ED for increasing shortness of breath and wheezing. She states she usually takes Advair in common event for her asthma. However, this morning she woke up, removed her CPAP machine and noticed that she felt more short of breath than usual. She did take her albuterol inhaler which has helped for a few hours. She states she went on with her day? was just ruling with the punches ?when her daughter noticed some swelling in her legs. Patient denies any known contact with COVID-19 positive patient. She denies any fevers, chills, nausea, vomiting, diarrhea, chest pain, dysuria, or any other concerns. Past ECHO on 08/04/2018 with EF 60-65%, denies diagnosis of CHF. Related Data Home Medications Medication Instructions Recorded Confirmed Nebulizer: Home Unit See Rx Instructions .ROUTE .COMPLEX 01/18/18 07/31/19 albuterol sulfate [Proventil HFA] 1 - 2 puff INH Q4HP PRN MDD unknown 01/18/18 07/31/19 omeprazole 40 mg PO DAILY 01/18/18 07/31/19 ropinirole 0.25 mg tablet 0.25 mg PO BEDTIME 02/02/19 07/31/19 cetirizine 10 mg capsule 10 mg PO DAILY 02/19/19 07/31/19 losartan 50 mg-hydrochlorothiazide 1 tab PO DAILY 02/19/19 07/31/19 12.5 mg tablet venlafaxine 100 mg tablet 225 mg PO DAILY tab 02/19/19 07/31/19 celecoxib [Celebrex] 200 mg PO 1600 03/08/19 07/31/19 Previous Rx's Medication Instructions Recorded albuterol sulfate 3 ml INH Q4HP PRN #1 box 02/05/17 fluticasone propion-salmeterol 1 puff INH BID #60 inh 02/05/17 [Advair Diskus] hydrocodone-acetaminophen [[place]] 1 tab PO TIDP PRN #30 tab 10/30/17 fluticasone propionate 1 spray INTRANASAL BID #16 gm 12/24/17 metformin 500 mg tablet 500 mg PO BIDCC #60 tab 01/25/18 sumatriptan succinate 50 mg tablet See Rx Instructions PO .COMPLEX 05/14/18 #10 tab montelukast 10 mg tablet 10 mg PO QDAY #30 tab 08/03/18 fluconazole 150 mg tablet 150 mg PO Q3D #2 tab 07/31/19 prednisone 50 mg PO DAILY #5 tab 01/13/20 prednisone 50 mg PO DAILY #5 tab 01/13/20 Allergies Allergy/AdvReac Type Severity Reaction Status Date / Time amoxicillin [AMOXICILLIN] Allergy Severe RASH Verified 01/13/20 17:25 latex [LATEX] Allergy Severe HIVES, Verified 01/13/20 17:25 RESPIRATORY DISTRESS levalbuterol [LEVALBUTEROL] Allergy Severe AIRWAY Verified 01/13/20 17:25 OCCLUSION Penicillins [PENICILLINS] Allergy Severe RASH Verified 01/13/20 17:25 Sulfa (Sulfonamide Allergy itchy rash Verified 01/13/20 17:25 Antibiotics) duloxetine [DULOXETINE] AdvReac Mild AGITATION Verified 01/13/20 17:25 Review of Systems <BARBIE Marinelli - Last Filed: 01/13/20 21:15> Review of Systems Narrative: REVIEW OF SYSTEMS: GENERAL: Denies fevers. HENT: No head trauma or hearing loss. EYES: No vision changes.. CARDIOVASCULAR: No chest pain or syncope. RESPIRATORY: Reports shortness of breath and wheezing, see HPI. GASTROINTESTINAL: No nausea, vomiting, diarrhea, or constipation. MUSCULOSKELETAL: No weakness or injury. Reports bilateral leg swelling, see HPI. INTEGUMENTARY: No rash, lesions, or pruritus. NEURO: No memory loss, or confusion. Patient History <BARBIE Marinelli - Last Filed: 01/13/20 21:15> Medical History Anemia (Acute) Anxiety and depression (Acute) Arthritis (Acute) Asthma (Acute) Chronic pain (Acute) Diabetes (Acute) Diverticulitis (Acute) GERD (gastroesophageal reflux disease) (Acute) Hiatal hernia (Acute) HTN (hypertension) (Acute) Metabolic syndrome (Acute) Migraines (Acute) Morbid obesity with body mass index (BMI) of 50.0 to 59.9 in adult (Chronic 07/25/16) MRSA (methicillin resistant Staphylococcus aureus) (Acute ~2010) Obstructive sleep apnea (Chronic) Osteoarthritis (Acute) Peripheral edema (Acute) Recent urinary tract infection (Acute) Vertigo (Acute) Surgical History History of bilateral tubal ligation (Acute) History of colon surgery (Acute ~2010) History of colonoscopy (Acute) Hx of cholecystectomy (Acute) Hx of tonsillectomy (Acute) Social History household members: family Smoking Status: Never smoker Smoking Status: Never smoker Substance Use Type: does not use Exam <BARBIE Marinelli - Last Filed: 01/13/20 21:15> Initial Vital Signs Initial Vital Signs: Vital Signs Temperature 98.3 F 01/13/20 17:17 Pulse Rate 122 H 01/13/20 17:17 Respiratory Rate 26 H 01/13/20 17:17 Blood Pressure 169/95 H 01/13/20 17:17 Pulse Oximetry 96 01/13/20 17:17 PHYSICAL EXAMINATION: GENERAL: Well groomed, alert, and cooperative. Answers questions promptly and appropriately. Vital signs noted. HENT: Normocephalic, atraumatic. Oropharynx without erythema. Tonsils are not present. EYES: Conjunctiva pink, sclera white, no periorbital swelling. No discharge. CHEST: Normal to inspection and without deformities. CARDIOVASCULAR: S1 and S2 sounds normal. Regular rate and rhythm, no murmurs, clicks, or bruits. RESPIRATORY: Normal respiratory rate, trachea midline, airway patent. No stridor, nasal flaring or accessory muscle use. Able to speak in full sentences. Expiratory wheezes noted throughout lung field. Increased wheezing after inhaler administration, decreased wheezing after 1 DuoNeb administration. MUSCULOSKELETAL: Normal gait and coordination. Equal tone and mass bilaterally. EXTREMITIES: Lower extremities with 1+ nonpitting edema. Equal size. No calf tenderness. SKIN: Warm, dry, soft, appropriate color for ethnicity. No lesions, rashes, or wounds to visualized areas. NEURO: Alert and Oriented X 3. Good coordination. No ataxia or cognitive issues. PSYCH: Appropriate affect and mood. <Demetrio [place], DO - Last Filed: 01/14/20 01:57> Initial Vital Signs Initial Vital Signs: Vital Signs Temperature 98.3 F 01/13/20 17:17 Pulse Rate 122 H 01/13/20 17:17 Respiratory Rate 26 H 01/13/20 17:17 Blood Pressure 169/95 H 01/13/20 17:17 Pulse Oximetry 96 01/13/20 17:17 Scores <BARBIE Marinelli - Last Filed: 01/13/20 21:15> PERC Score Age greater than or equal to 50 years: Yes Heart rate greater than or equal to 100 bpm: Yes Room Air O2 Sat less than 95%: No Unilateral leg swelling: No Recent trauma or surgery: No Hemoptysis: No Prior PE or DVT: No Hormone Use: No Total PERC Score: 2 Wells' Criteria for PE Clinical signs and symptoms of DVT: No PE is #1 Dx or equally likely: No Heart rate > 100: Yes Immobilization at least 3 days or surg in previous 4 weeks: No History of PE or DVT: No Hemoptysis: No Malignancy w/Treatment within 6 months or palliative: No Wells' PE Score total: 1.5 Course <BARBIE Marinelli - Last Filed: 01/13/20 21:15> Course Course Narrative: D-dimer ordered due to continued SOB, tachycardia, PERC score and well's criteria. Age adjusted D-dimer is 285, CT scan was ordered. 2030: Patient was re-evaluated, reports feeling much better. Significantly decreased wheezes bilaterally, small amount of wheezes noticed and lower lobes upon expiration which have improved. Patient able to ambulate. Does report some shortness of breath after a long walk to the bathroom, she states this is often common. I suspect patient's obesity may contribute to this as well. Patient requesting to be discharged. Patient denies any need of refills of medications such as inhalers or nebulizer treatments. Orders Ordered: ED Orders 01/13/20 17:17 XR chest 1V Stat EKG-12 Lead Stat Measure peak expiratory flow ONCE RT Consult Eval and Treat Now 01/13/20 17:20 Complete Blood Count AUTO DIFF Stat Comprehensive Metabolic Panel Stat D Dimer Stat Lactate (Lactic Acid) Stat NT-proBNP (BNP-Adult 18+) Stat 01/13/20 18:05 Influenza A & B (PCR) Stat 01/13/20 18:15 Urine Microscopic Stat 01/13/20 19:35 CT angio chest PE protocol Stat Discontinued Medications Albuterol (Ventolin Hfa) 2 puff INH NOW ONE Stop: 01/13/20 17:18 Last Admin: 01/13/20 17:23 Dose: 2 puff Documented by: LEONARDO Albuterol/Ipratropium (Duoneb) 3 ml INH NOW ONE Stop: 01/13/20 18:57 Last Admin: 01/13/20 19:04 Dose: 3 ml Documented by: ASIM Sodium Chloride (Normal Saline 0.9%) 1,000 mls @ 1,000 mls/hr IV BOLUS ONE Stop: 01/13/20 19:23 Last Admin: 01/13/20 19:04 Dose: 1,000 mls/hr Documented by: ASIM Methylprednisolone (Solu-Medrol 125 Mg Vial) 125 mg IV NOW ONE Stop: 01/13/20 18:25 Last Admin: 01/13/20 19:04 Dose: 125 mg Documented by: ASIM Consultations Consultation #1: Patient staffed with Dr. Bee discussed history, tests, test results, and plan of care. Vital Signs Vital signs: Vital Signs - 8 hr 01/13/20 18:12 01/13/20 19:06 01/13/20 20:42 Temperature 97.8 F Pulse Rate 112 H 107 H 108 H Respiratory Rate 28 H 20 24 Blood Pressure 158/77 H Blood Pressure [Left Arm] 171/83 H 137/94 H Pulse Oximetry 98 95 98 <Demetrio Bee, DO - Last Filed: 01/14/20 01:57> Orders Ordered: ED Orders 01/13/20 17:17 XR chest 1V Stat EKG-12 Lead Stat Measure peak expiratory flow ONCE RT Consult Eval and Treat Now 01/13/20 17:20 Complete Blood Count AUTO DIFF Stat Comprehensive Metabolic Panel Stat D Dimer Stat Lactate (Lactic Acid) Stat NT-proBNP (BNP-Adult 18+) Stat 01/13/20 18:05 Influenza A & B (PCR) Stat 01/13/20 18:15 Urine Microscopic Stat 01/13/20 19:35 CT angio chest PE protocol Stat Discontinued Medications Albuterol (Ventolin Hfa) 2 puff INH NOW ONE Stop: 01/13/20 17:18 Last Admin: 01/13/20 17:23 Dose: 2 puff Documented by: LEONARDO Albuterol/Ipratropium (Duoneb) 3 ml INH NOW ONE Stop: 01/13/20 18:57 Last Admin: 01/13/20 19:04 Dose: 3 ml Documented by: ASIM Sodium Chloride (Normal Saline 0.9%) 1,000 mls @ 1,000 mls/hr IV BOLUS ONE Stop: 01/13/20 19:23 Last Admin: 01/13/20 19:04 Dose: 1,000 mls/hr Documented by: ASIM Methylprednisolone (Solu-Medrol 125 Mg Vial) 125 mg IV NOW ONE Stop: 01/13/20 18:25 Last Admin: 01/13/20 19:04 Dose: 125 mg Documented by: ASIM Vital Signs Vital signs: Vital Signs - 8 hr 01/13/20 18:12 01/13/20 19:06 01/13/20 20:42 Temperature 97.8 F Pulse Rate 112 H 107 H 108 H Respiratory Rate 28 H 20 24 Blood Pressure 158/77 H Blood Pressure [Left Arm] 171/83 H 137/94 H Pulse Oximetry 98 95 98 MDM - SOB/Dyspnea <BARBIE Marinelli - Last Filed: 01/13/20 21:15> Medical Records Attestation: I reviewed the patient's medical records. Lab Data Attestation: I reviewed the patient's lab results. Result diagrams: 01/13/20 17:20 01/13/20 17:20 Labs: Lab Results 01/13/20 01/13/20 01/13/20 Range/Units 17:20 17:20 17:20 WBC 16.9 H (4.5-11.0) X10^3/uL RBC 4.77 (4.0-5.2) X10^6/uL Hgb 11.5 L (12.0-16.0) g/dL Hct 35.3 L (36-46) % MCV 73.9 L (80-100) fL MCH 24.2 L (26-34) PG MCHC 32.7 (30-36) % RDW 15.2 H (11.6-14.8) % Plt Count 349 (150-400) X10^3/uL Neut % (Auto) 59.9 (50-75) % Lymph % (Auto) 26.7 (25-40) % [place] % (Auto) 5.8 (3-14) % Eos % (Auto) 6.5 H (2-4) % Baso % (Auto) 1.1 (0-2) % Neut # (Auto) 75000 H (7496-2087) /uL Lymph # (Auto) 4500 (5330-5722) /uL [place] # (Auto) 1000 H (0-900) /uL Eos # (Auto) 1100 H (0-450) /uL Baso # (Auto) 200 H (0-100) /uL D-Dimer (<230) ng/mL Sodium 135 L (137-145) mmol/L Potassium 3.4 (3.4-5.1) mmol/L Chloride 100 (98-107) mmol/L Carbon Dioxide 22 (22-32) mmol/L BUN 10 (7-17) mg/dL Creatinine 0.65 (0.52-1.04) mg/dL Estimated GFR > 60.0 (>60) mL/min BUN/Creatinine Ratio 15.4 (6-22) Glucose 139 H (70-100) mg/dL Lactate 2.6 H (0.7-2.1) mmol/L Calcium 9.4 (8.4-10.2) mg/dL Total Bilirubin 0.4 (0.2-1.3) mg/dL AST 54 H (14-36) IU/L ALT 38 H (<35) IU/L Alkaline Phosphatase 118 (38-126) U/L NT-Pro-B Natriuret Pep (<125) pg/mL Total Protein 7.8 (6.3-8.2) g/dL Albumin 4.4 (3.5-5.0) g/dL Globulin 3.4 (1.7-4.1) g/dL Albumin/Globulin Ratio 1.3 (1.0-2.8) Urine RBC (0-5/HPF) Urine WBC (0-5/HPF) Urine Bacteria (None) Ur Culture Indicated? Micro UA Comment Influenza A (RT-PCR) (NEGATIVE) Influenza B (RT-PCR) (NEGATIVE) 01/13/20 01/13/20 01/13/20 Range/Units 17:20 17:20 18:05 WBC (4.5-11.0) X10^3/uL RBC (4.0-5.2) X10^6/uL Hgb (12.0-16.0) g/dL Hct (36-46) % MCV (80-100) fL MCH (26-34) PG MCHC (30-36) % RDW (11.6-14.8) % Plt Count (150-400) X10^3/uL Neut % (Auto) (50-75) % Lymph % (Auto) (25-40) % [place] % (Auto) (3-14) % Eos % (Auto) (2-4) % Baso % (Auto) (0-2) % Neut # (Auto) (4995-5196) /uL Lymph # (Auto) (2979-0746) /uL [place] # (Auto) (0-900) /uL Eos # (Auto) (0-450) /uL Baso # (Auto) (0-100) /uL D-Dimer 334 H (<230) ng/mL Sodium (137-145) mmol/L Potassium (3.4-5.1) mmol/L Chloride (98-107) mmol/L Carbon Dioxide (22-32) mmol/L BUN (7-17) mg/dL Creatinine (0.52-1.04) mg/dL Estimated GFR (>60) mL/min BUN/Creatinine Ratio (6-22) Glucose (70-100) mg/dL Lactate (0.7-2.1) mmol/L Calcium (8.4-10.2) mg/dL Total Bilirubin (0.2-1.3) mg/dL AST (14-36) IU/L ALT (<35) IU/L Alkaline Phosphatase (38-126) U/L NT-Pro-B Natriuret Pep 78 (<125) pg/mL Total Protein (6.3-8.2) g/dL Albumin (3.5-5.0) g/dL Globulin (1.7-4.1) g/dL Albumin/Globulin Ratio (1.0-2.8) Urine RBC (0-5/HPF) Urine WBC (0-5/HPF) Urine Bacteria (None) Ur Culture Indicated? Micro UA Comment Influenza A (RT-PCR) Flu a negative (NEGATIVE) Influenza B (RT-PCR) Flu b negative (NEGATIVE) 01/13/20 01/13/20 Range/Units 18:15 19:53 WBC (4.5-11.0) X10^3/uL RBC (4.0-5.2) X10^6/uL Hgb (12.0-16.0) g/dL Hct (36-46) % MCV (80-100) fL MCH (26-34) PG MCHC (30-36) % RDW (11.6-14.8) % Plt Count (150-400) X10^3/uL Neut % (Auto) (50-75) % Lymph % (Auto) (25-40) % [place] % (Auto) (3-14) % Eos % (Auto) (2-4) % Baso % (Auto) (0-2) % Neut # (Auto) (7242-9811) /uL Lymph # (Auto) (6241-5008) /uL [place] # (Auto) (0-900) /uL Eos # (Auto) (0-450) /uL Baso # (Auto) (0-100) /uL D-Dimer (<230) ng/mL Sodium (137-145) mmol/L Potassium (3.4-5.1) mmol/L Chloride (98-107) mmol/L Carbon Dioxide (22-32) mmol/L BUN (7-17) mg/dL Creatinine (0.52-1.04) mg/dL Estimated GFR (>60) mL/min BUN/Creatinine Ratio (6-22) Glucose (70-100) mg/dL Lactate 2.8 H (0.7-2.1) mmol/L Calcium (8.4-10.2) mg/dL Total Bilirubin (0.2-1.3) mg/dL AST (14-36) IU/L ALT (<35) IU/L Alkaline Phosphatase (38-126) U/L NT-Pro-B Natriuret Pep (<125) pg/mL Total Protein (6.3-8.2) g/dL Albumin (3.5-5.0) g/dL Globulin (1.7-4.1) g/dL Albumin/Globulin Ratio (1.0-2.8) Urine RBC None seen (0-5/HPF) Urine WBC None seen (0-5/HPF) Urine Bacteria None seen (None) Ur Culture Indicated? Cult not indicated Micro UA Comment Microscopic normal Influenza A (RT-PCR) (NEGATIVE) Influenza B (RT-PCR) (NEGATIVE) Urine Dip Bedside Urine Glucose Negative Bedside Urine Bilirubin - Negative Bedside Urine Ketone - Negative Urine Specific [place] 1.015 Bedside Urine Occult Blood +/- Bedside Urine pH 6.5 Bedside Urine Protein - Negative Bedside Urine Urobilinogen - Negative Bedside Urine Nitrite - Negative Bedside Urine Leukocytes + 70 Esterase Imaging Data Chest x-ray: Radiologist's Impression: [address] [address] XRay Report Signed Patient: Erika Andrew [facility]#: [id number] : 1960Acct:[id number] Age/Sex: 59 / FDate of Service: 01/13/20 Loc: ED Accession Number: [id number] Procedure: XR chest 1V Ordering Provider: Radha Lawrence PROCEDURE: XR CHEST 2V INDICATIONS: shortness of breath TECHNIQUE: 2 views of the chest were acquired. COMPARISON: [facility], , XR CHEST 2V, 01/14/2018, 11:56. FINDINGS: Surgical changes and devices: None. Lungs and pleura: Lungs are clear. No pleural effusions or pneumothorax. Mediastinum: Mediastinal contours are normal. Heart size is normal. Bones and chest wall: No suspicious bony abnormalities. Soft tissues appear unremarkable. IMPRESSION: No acute pulmonary process. Dictated by: Rubia Kerr M.D. on 01/13/2020 at 18:11 Approved by: Rubai Kerr M.D. on 01/13/2020 at 18:11 CTA PE: Radiologist's Impression: [address] [address] [address] Scan Report Signed Patient: Erika Andrew [facility]#: [id number] : 1960Acct:[id number] Age/Sex: 59 / FDate of Service: 01/13/20 Loc: ED Accession Number: [id number] Procedure: CT angio chest PE protocol Ordering Provider: Radha Lawrence PROCEDURE: CT ANGIO CHEST PE PROTOCOL INDICATIONS: SOB, tachycardia, leg swelling, rule out PE, + D-dimer TECHNIQUE: After the administration of intravenous contrast, 2 mm thick sections acquired from the pulmonary apices to the posterior costophrenic angles. 3-dimensional maximum intensity projection (MIP) coronal and sagittal reformats were then acquired through the thorax. For radiation dose reduction, the following was used: automated exposure control, adjustment of mA and/or kV according to patient size. COMPARISON: [facility], CR, XR CHEST 2V, 01/13/2020, 17:51. FINDINGS: Image quality: Suboptimal evaluation of pulmonary arteries beyond the main pulmonary artery. Pulmonary arteries: Pulmonary arteries are normal in size, and demonstrate no intraluminal filling defects to suggest central pulmonary embolism. Lungs and pleura: Lungs are clear. No pleural effusions or pneumothorax. Central and peripheral airways are patent. Mediastinum: Heart size is mildly enlarged, without pericardial effusion. No mediastinal or hilar adenopathy. Ascending thoracic aorta demonstrates borderline aneurysmal dilation. Esophagus is normal in caliber, without hiatal hernia. Bones and chest wall: No suspicious bony lesions. Ribs and thoracic spine appear intact throughout. Thyroid gland is unremarkable. No axillary or supraclavicular adenopathy. Abdomen: Visualized upper abdominal solid organs appear normal in the early arterial phase of enhancement. IMPRESSION: 1. No central pulmonary embolism. As noted above, evaluation of pulmonary artery distal to the main pulmonary branches is considered nondiagnostic secondary to artifact. Areas of small filling defects within these branches cannot be definitively excluded. 2. Lungs are clear. No effusions or consolidations. Dictated by: Rubia Kerr M.D. on 01/13/2020 at 19:47 Approved by: Rubia Kerr M.D. on 01/13/2020 at 19:49 ECG Data Interpretation: Sinus tachycardia with 1 PVC noted. Rate 108, OR interval 154, QTC 468. Slight ST elevation noted in V4-V5 (this may be possible artifact). Similar findings are present on previous EKG from 07/25/2016. No ST elevation or T-wave inversion. EKG also viewed by Dr. Jones per protocol. MDM Narrative Medical decision making narrative: 59-year-old female with a history of asthma and obesity, presents emergency department for worsening shortness of breath. Differential includes COVID-19, upper respiratory infection, asthma exacerbation, infection such as pneumonia, and PE. I suspect patient's symptoms are most likely caused from asthma exacerbation due to improved symptoms after administration of albuterol today at home as well as in the emergency department. Also improved symptoms after administration of Solu-Medrol. Wheezes present on examination which decreased after albuterol administration, history of asthma exacerbations in history of allergies, current increased pollen in the air. Less likely PE, patient was initially positive for PERC and well's criteria, D-dimer was elevated, patient exhibited tachycardia, so imaging was ordered, CT angio without evidence of PE, patient's symptoms improved with albuterol, and wheezing was present. However, there is a small amount of artifact noted on the study. Less likely infection such as pneumonia lack of consolidation on chest x-ray, no crackles heard, patient is afebrile. Less likely COVID-19 due to lack of changes on CT. However, disease case may be mild and due to increased risk factors patient was swabbed for COVID-19. Patient did show an elevated white blood cell count, this has been consistent throughout her past laboratory test. This may be due to a coexisting upper respiratory tract infection or a normal variation to patient. Patient was a candidate for discharge due to resolving symptoms, patient requesting discharge, patient has a nebulizer at home, and patient was discharged with prednisone. She did report increased shortness of breath with exertion but saturations remained 98% and patient's was able to catch her breath after a minute of resting. Strict ED return precautions given. Patient agreed to plan of care verbalized understanding. <Demetrio Bee DO - Last Filed: 01/14/20 01:57> Lab Data Labs: Lab Results 01/13/20 01/13/20 01/13/20 Range/Units 17:20 17:20 17:20 WBC 16.9 H (4.5-11.0) X10^3/uL RBC 4.77 (4.0-5.2) X10^6/uL Hgb 11.5 L (12.0-16.0) g/dL Hct 35.3 L (36-46) % MCV 73.9 L (80-100) fL MCH 24.2 L (26-34) PG MCHC 32.7 (30-36) % RDW 15.2 H (11.6-14.8) % Plt Count 349 (150-400) X10^3/uL Neut % (Auto) 59.9 (50-75) % Lymph % (Auto) 26.7 (25-40) % [place] % (Auto) 5.8 (3-14) % Eos % (Auto) 6.5 H (2-4) % Baso % (Auto) 1.1 (0-2) % Neut # (Auto) 15104 H (9274-4632) /uL Lymph # (Auto) 4500 (8864-1647) /uL [place] # (Auto) 1000 H (0-900) /uL Eos # (Auto) 1100 H (0-450) /uL Baso # (Auto) 200 H (0-100) /uL D-Dimer (<230) ng/mL Sodium 135 L (137-145) mmol/L Potassium 3.4 (3.4-5.1) mmol/L Chloride 100 (98-107) mmol/L Carbon Dioxide 22 (22-32) mmol/L BUN 10 (7-17) mg/dL Creatinine 0.65 (0.52-1.04) mg/dL Estimated GFR > 60.0 (>60) mL/min BUN/Creatinine Ratio 15.4 (6-22) Glucose 139 H (70-100) mg/dL Lactate 2.6 H (0.7-2.1) mmol/L Calcium 9.4 (8.4-10.2) mg/dL Total Bilirubin 0.4 (0.2-1.3) mg/dL AST 54 H (14-36) IU/L ALT 38 H (<35) IU/L Alkaline Phosphatase 118 (38-126) U/L NT-Pro-B Natriuret Pep (<125) pg/mL Total Protein 7.8 (6.3-8.2) g/dL Albumin 4.4 (3.5-5.0) g/dL Globulin 3.4 (1.7-4.1) g/dL Albumin/Globulin Ratio 1.3 (1.0-2.8) Urine RBC (0-5/HPF) Urine WBC (0-5/HPF) Urine Bacteria (None) Ur Culture Indicated? Micro UA Comment Influenza A (RT-PCR) (NEGATIVE) Influenza B (RT-PCR) (NEGATIVE) 01/13/20 01/13/20 01/13/20 Range/Units 17:20 17:20 18:05 WBC (4.5-11.0) X10^3/uL RBC (4.0-5.2) X10^6/uL Hgb (12.0-16.0) g/dL Hct (36-46) % MCV (80-100) fL MCH (26-34) PG MCHC (30-36) % RDW (11.6-14.8) % Plt Count (150-400) X10^3/uL Neut % (Auto) (50-75) % Lymph % (Auto) (25-40) % [place] % (Auto) (3-14) % Eos % (Auto) (2-4) % Baso % (Auto) (0-2) % Neut # (Auto) (5889-8547) /uL Lymph # (Auto) (9412-1107) /uL [place] # (Auto) (0-900) /uL Eos # (Auto) (0-450) /uL Baso # (Auto) (0-100) /uL D-Dimer 334 H (<230) ng/mL Sodium (137-145) mmol/L Potassium (3.4-5.1) mmol/L Chloride (98-107) mmol/L Carbon Dioxide (22-32) mmol/L BUN (7-17) mg/dL Creatinine (0.52-1.04) mg/dL Estimated GFR (>60) mL/min BUN/Creatinine Ratio (6-22) Glucose (70-100) mg/dL Lactate (0.7-2.1) mmol/L Calcium (8.4-10.2) mg/dL Total Bilirubin (0.2-1.3) mg/dL AST (14-36) IU/L ALT (<35) IU/L Alkaline Phosphatase (38-126) U/L NT-Pro-B Natriuret Pep 78 (<125) pg/mL Total Protein (6.3-8.2) g/dL Albumin (3.5-5.0) g/dL Globulin (1.7-4.1) g/dL Albumin/Globulin Ratio (1.0-2.8) Urine RBC (0-5/HPF) Urine WBC (0-5/HPF) Urine Bacteria (None) Ur Culture Indicated? Micro UA Comment Influenza A (RT-PCR) Flu a negative (NEGATIVE) Influenza B (RT-PCR) Flu b negative (NEGATIVE) 01/13/20 01/13/20 Range/Units 18:15 19:53 WBC (4.5-11.0) X10^3/uL RBC (4.0-5.2) X10^6/uL Hgb (12.0-16.0) g/dL Hct (36-46) % MCV (80-100) fL MCH (26-34) PG MCHC (30-36) % RDW (11.6-14.8) % Plt Count (150-400) X10^3/uL Neut % (Auto) (50-75) % Lymph % (Auto) (25-40) % [place] % (Auto) (3-14) % Eos % (Auto) (2-4) % Baso % (Auto) (0-2) % Neut # (Auto) (0734-4104) /uL Lymph # (Auto) (3801-4620) /uL [place] # (Auto) (0-900) /uL Eos # (Auto) (0-450) /uL Baso # (Auto) (0-100) /uL D-Dimer (<230) ng/mL Sodium (137-145) mmol/L Potassium (3.4-5.1) mmol/L Chloride (98-107) mmol/L Carbon Dioxide (22-32) mmol/L BUN (7-17) mg/dL Creatinine (0.52-1.04) mg/dL Estimated GFR (>60) mL/min BUN/Creatinine Ratio (6-22) Glucose (70-100) mg/dL Lactate 2.8 H (0.7-2.1) mmol/L Calcium (8.4-10.2) mg/dL Total Bilirubin (0.2-1.3) mg/dL AST (14-36) IU/L ALT (<35) IU/L Alkaline Phosphatase (38-126) U/L NT-Pro-B Natriuret Pep (<125) pg/mL Total Protein (6.3-8.2) g/dL Albumin (3.5-5.0) g/dL Globulin (1.7-4.1) g/dL Albumin/Globulin Ratio (1.0-2.8) Urine RBC None seen (0-5/HPF) Urine WBC None seen (0-5/HPF) Urine Bacteria None seen (None) Ur Culture Indicated? Cult not indicated Micro UA Comment Microscopic normal Influenza A (RT-PCR) (NEGATIVE) Influenza B (RT-PCR) (NEGATIVE) Urine Dip Bedside Urine Glucose Negative Bedside Urine Bilirubin - Negative Bedside Urine Ketone - Negative Urine Specific [place] 1.015 Bedside Urine Occult Blood +/- Bedside Urine pH 6.5 Bedside Urine Protein - Negative Bedside Urine Urobilinogen - Negative Bedside Urine Nitrite - Negative Bedside Urine Leukocytes + 70 Esterase Discharge Plan Departure Patient Disposition: Home Clinical Impression: Asthma exacerbation Qualifiers: Asthma severity: moderate Asthma persistence: persistent Qualified Code(s): J45.41 - Moderate persistent asthma with (acute) exacerbation Discharge Date/Time: 01/13/20 20:41 Instructions: DI for Asthma -- Adult Activity Restrictions/Additional Instructions: Thank you for entrusting me with your care today. As discussed, your imaging is negative for a blood clot in your lungs or pneumonia. Your laboratory is non-remarkable, your white blood cell count was slightly elevated as it has been in the past. I suspect the cause of your symptoms is most likely due to an asthma exacerbation. I prescribed you prednisone, please take this as directed. You may use your nebulizers every 4-6 hours as needed for shortness of breath. Please call your primary care provider tomorrow or Thursday and schedule a follow-up appointment within the week. Your prescription were sent to [facility]. Return emergency department for any new or worsening symptoms such as chest pain, worsening shortness of breath, fevers, uncontrollable vomiting, or any other concerns. You have been tested for COVID-19. This test may take 1-3 days for results to return, we will call you with these results. Please remain in quarantine with self isolation at home for 3 days after your symptoms have completely resolved. Drink lots of fluids, take Tylenol for fever, get extra rest, clean all surfaces, cover your cough, wash your hands frequently, and avoid sharing any personal items. If you need to seek medical care, please call the clinic or the emergency department before your arrival. Prescriptions: New prednisone 50 mg tablet 50 mg PO DAILY Qty: 5 RF: 0 prednisone 50 mg tablet 50 mg PO DAILY Qty: 5 RF: 0 No Action venlafaxine 100 mg tablet 225 mg PO DAILY RF: 0 losartan-hydrochlorothiazide 50-12.5 mg tablet 1 tab PO DAILY RF: 0 Zyrtec 10 mg capsule 10 mg PO DAILY RF: 0 fluconazole [Diflucan] 150 mg tablet 150 mg PO Q3D Qty: 2 RF: 0 albuterol sulfate 2.5 MG/3 ML solution for nebulization 3 ml INH Q4HP PRNQty: 1 RF: 2 fluticasone propion-salmeterol [Advair Diskus] 250 MCG/50 MCG blister with device 1 puff INH BID Qty: 60 RF: 11 hydrocodone-acetaminophen [[place]] 5 MG/325 MG tablet 1 tab PO TIDP PRNQty: 30 RF: 0 fluticasone propionate 16 GM spray,suspension 1 spray Intranasal BID Qty: 16 RF: 5 metformin [Glucophage] 500 mg tablet 500 mg PO BIDCC Qty: 60 RF: 2 sumatriptan succinate [Imitrex] 50 mg tablet See Rx Instructions PO .COMPLEX Qty: 10 RF: 1 montelukast [Singulair] 10 mg tablet 10 mg PO QDAY Qty: 30 RF: 2 ropinirole 0.25 mg tablet 0.25 mg PO BEDTIME RF: 0 omeprazole 40 mg Capsule,Delayed Release(Dr/Ec) 40 mg PO DAILY RF: 0 albuterol sulfate [Proventil HFA] 90 MCG/PUFF HFA aerosol inhaler 1 - 2 puff INH Q4HP MDD unknown PRN (Reason: Secretions) RF: 0 Nebulizer: Home Unit See Rx Instructions .ROUTE .COMPLEX RF: 0 celecoxib [Celebrex] 200 mg capsule 200 mg PO 1600 RF: 0 Referrals: Esperanza Heath PA-C [Primary Care Provider] - <Demetrio Bee DO - Last Filed: 01/14/20 01:57> Cosign ED Attending Marquezature Attestation: I was immediately available in the department for consultation. This documentation has been reviewed and I agree with assessment and plan. Supervised by Demetrio Bee DO
[2020-01-13 17:37] LABS: Add Manual Diff / Slide Review NO; Basophils Absolute Auto 200 /uL (0-100); Basophils Percent Auto 1.1 % (0-2); Eosinophils Absolute Auto 1100 /uL (0-450); Eosinophils Percent Auto 6.5 % (2-4); Hematocrit 35.3 % (36-46); Hemoglobin 11.5 g/dL (12.0-16.0); Lymphocytes Absolute Auto 4500 /uL (1100-4500); Lymphocytes Percent Auto 26.7 % (25-40); Mean Corpuscular HGB Conc 32.7 % (30-36); Mean Corpuscular Hemoglobin 24.2 PG (26-34); Mean Corpuscular Volume 73.9 fL (80-100); Monocytes Absolute Auto 1000 /uL (0-900); Monocytes Percent Auto 5.8 % (3-14); Neutrophils Absolute Auto 10100 /uL (1500-7000); Neutrophils Percent Auto 59.9 % (50-75); Platelet Count 349 X10^3/uL (150-400); Red Blood Cell Count 4.77 X10^6/uL (4.0-5.2); Red Cell Distribution Width 15.2 % (11.6-14.8); White Blood Cell Count 16.9 X10^3/uL (4.5-11.0)
[2020-01-13 17:52] LABS: Lactate (Lactic Acid) 2.6 mmol/L (0.7-2.1)
[2020-01-13 17:53] LABS: Alanine Aminotransferase 38 IU/L (<35); Albumin 4.4 g/dL (3.5-5.0); Albumin Globulin Ratio 1.3 (1.0-2.8); Alkaline Phosphatase 118 U/L (38-126); Aspartate Aminotransferase 54 IU/L (14-36); BUN Creatinine Ratio 15.4 (6-22); Bilirubin Total 0.4 mg/dL (0.2-1.3); Blood Urea Nitrogen 10 mg/dL (7-17); Calcium 9.4 mg/dL (8.4-10.2); Carbon Dioxide 22 mmol/L (22-32); Chloride 100 mmol/L (98-107); Estimated Glomerular Filt Rate > 60.0 mL/min (>60); Globulin 3.4 g/dL (1.7-4.1); Glucose 139 mg/dL (70-100); HEMOLYSIS < 15 (0-50); Potassium 3.4 mmol/L (3.4-5.1); Sodium 135 mmol/L (137-145); Total Protein 7.8 g/dL (6.3-8.2)
[2020-01-13 18:11] LABS: NT-proBNP (BNP-Adult 18+) 78 pg/mL (<125)
[2020-01-13 18:12] VITALS: BP 171/83; PULSE 112; RESP 28; O2SAT 98
[2020-01-13] MEDS: ALBUTEROL/IPRATROPIUM 3 ML AMPUL INH ×2 (18:32→19:04)
[2020-01-13 18:41] LABS: Influenza A - CEPHEID Flu A NEGATIVE (NEGATIVE); Influenza B - CEPHEID Flu B NEGATIVE (NEGATIVE)
[2020-01-13 18:59] LABS: D Dimer 334 ng/mL (<230)
[2020-01-13 19:00] LABS: Bacteria Urine None Seen; RBC Urine None Seen (0-5/HPF); WBC Urine None Seen (0-5/HPF)
[2020-01-13] MEDS: SODIUM CHLORIDE 0.9% 1,000 ML 1000 ML IV (19:04)
[2020-01-13] MEDS: methylPREDNISolone 125 MG/2 ML VIAL IV (19:04)
[2020-01-13 19:06] VITALS: BP 137/94; PULSE 107; RESP 20; O2SAT 95
[2020-01-13 19:07] LABS: Culture Indicated Urine Cult Not Indicated; Urine Comments Microscopic Normal
[2020-01-13 19:33] LABS: Reflexed Lactate in 2 Hours Y
--- NOTE | 2020-01-13 19:35 | DI.CT.S_ITS ---
PROCEDURE: CT ANGIO CHEST PE PROTOCOL INDICATIONS: SOB, tachycardia, leg swelling, rule out PE, + D-dimer TECHNIQUE: After the administration of intravenous contrast, 2 mm thick sections acquired from the pulmonary apices to the posterior costophrenic angles. 3-dimensional maximum intensity projection (MIP) coronal and sagittal reformats were then acquired through the thorax. For radiation dose reduction, the following was used: automated exposure control, adjustment of mA and/or kV according to patient size. COMPARISON: [facility], , XR CHEST 2V, 01/13/2020, 17:51. FINDINGS: Image quality: Suboptimal evaluation of pulmonary arteries beyond the main pulmonary artery. Pulmonary arteries: Pulmonary arteries are normal in size, and demonstrate no intraluminal filling defects to suggest central pulmonary embolism. Lungs and pleura: Lungs are clear. No pleural effusions or pneumothorax. Central and peripheral airways are patent. Mediastinum: Heart size is mildly enlarged, without pericardial effusion. No mediastinal or hilar adenopathy. Ascending thoracic aorta demonstrates borderline aneurysmal dilation. Esophagus is normal in caliber, without hiatal hernia. Bones and chest wall: No suspicious bony lesions. Ribs and thoracic spine appear intact throughout. Thyroid gland is unremarkable. No axillary or supraclavicular adenopathy. Abdomen: Visualized upper abdominal solid organs appear normal in the early arterial phase of enhancement. IMPRESSION: 1. No central pulmonary embolism. As noted above, evaluation of pulmonary artery distal to the main pulmonary branches is considered nondiagnostic secondary to artifact. Areas of small filling defects within these branches cannot be definitively excluded. 2. Lungs are clear. No effusions or consolidations. Dictated by: Rubia Kerr M.D. on 01/13/2020 at 19:47 Approved by: Rubia Kerr M.D. on 01/13/2020 at 19:49
[2020-01-13 20:11] LABS: Lactate 2HR (Lactic Acid Rflx) 2.8 mmol/L (0.7-2.1)
[2020-01-13 20:42] VITALS: BP 158/77; PULSE 108; RESP 24; TEMP 36.6; O2SAT 98
--- NOTE | 2020-01-13 22:59 | PC.NURSE ---
1000ml NS infused and discontinued at 2039. No waste.
[2020-01-15 08:52] LABS: COVID19 Sendout Not Detected (Not Detected)
== END 2020-01-13 20:41 | disposition home or self-care (01) ==
PROVIDERS: Emergency Provider Nurse Practitioner; PCP Physician Assistant
DX: J45.901 Unspecified asthma with (acute) exacerbation (principal); I10 Essential (primary) hypertension; E66.9 Obesity, unspecified; R00.0 Tachycardia, unspecified; D72.829 Elevated white blood cell count, unspecified; R06.02 Shortness of breath; R60.0 Localized edema
CPT/HCPCS: 36415; 71045; 71275; 80053; 81003; 81015; 83605; 83880; 85025; 85379; 87502; 87635; 93005; 94150; 94640; 96374; 99285; J2930; Q9967

== ENCOUNTER 2020-02-18 09:23 | Emergency (ER) | payer MEDICARE, OTHER, SELFPAY ==
[2020-02-18 09:34] VITALS: BP 179/79; PULSE 96; RESP 26; TEMP 36.1; O2SAT 99; BMI 60.0
[2020-02-18 09:37] LABS: Bacteria Urine None Seen; RBC Urine None Seen (0-5/HPF); WBC Urine None Seen (0-5/HPF)
[2020-02-18 09:39] LABS: Appearance Urine UA CLEAR; Color Urine UA ORANGE
--- NOTE | 2020-02-18 10:13 | ED.FEMALEGU ---
HPI - Female Genitourinary General Chief complaint: Urogenital-Female Stated complaint: states urinary tract infection x1day Time Seen by Provider: 02/18/20 10:03 Source: patient Mode of arrival: Ambulatory Limitations: no limitations History of Present Illness HPI Narrative: CC: Urinary urgency frequency and associated dysuria HPI: The patient is a 59-year-old female who states that she has had recurrent urinary tract infections. Last night she developed lower abdominal pelvic discomfort associated with dysuria for urgency frequency small volumes of urination. She took Pyridium for the discomfort. She has also been having recurrent bladder spasms. She states that because of the spasm discomfort she was unable to sleep. The spasms were dull and achy and 6/10 in intensity. She denied any nausea vomiting diarrhea change in bowel habits. She did not notice any hematuria. She has had no vaginal bleeding or discharge. She denies that she smokes cigarettes drinks alcohol periodically uses marijuana. She admits to a history of hypertension diabetes mellitus but denies any asthma myocardial infarction. Related Data Home Medications Medication Instructions Recorded Confirmed Nebulizer: Home Unit See Rx Instructions .ROUTE .COMPLEX 01/18/18 07/31/19 albuterol sulfate [Proventil HFA] 1 - 2 puff INH Q4HP PRN MDD unknown 01/18/18 07/31/19 omeprazole 40 mg PO DAILY 01/18/18 07/31/19 ropinirole 0.25 mg tablet 0.25 mg PO BEDTIME 02/02/19 07/31/19 cetirizine 10 mg capsule 10 mg PO DAILY 02/19/19 07/31/19 losartan 50 mg-hydrochlorothiazide 1 tab PO DAILY 02/19/19 07/31/19 12.5 mg tablet venlafaxine 100 mg tablet 225 mg PO DAILY tab 02/19/19 07/31/19 celecoxib [Celebrex] 200 mg PO 1600 03/08/19 07/31/19 Previous Rx's Medication Instructions Recorded albuterol sulfate 3 ml INH Q4HP PRN #1 box 02/05/17 fluticasone propion-salmeterol 1 puff INH BID #60 inh 02/05/17 [Advair Diskus] hydrocodone-acetaminophen [[place]] 1 tab PO TIDP PRN #30 tab 10/30/17 fluticasone propionate 1 spray INTRANASAL BID #16 gm 12/24/17 metformin 500 mg tablet 500 mg PO BIDCC #60 tab 01/25/18 sumatriptan succinate 50 mg tablet See Rx Instructions PO .COMPLEX 05/14/18 #10 tab montelukast 10 mg tablet 10 mg PO QDAY #30 tab 08/03/18 fluconazole 150 mg tablet 150 mg PO Q3D #2 tab 07/31/19 prednisone 50 mg PO DAILY #5 tab 01/13/20 prednisone 50 mg PO DAILY #5 tab 01/13/20 cefdinir 300 mg PO BID #10 cap 02/18/20 ondansetron HCl [Zofran] 4 mg PO Q8H PRN #10 tab 02/18/20 oxybutynin chloride [Ditropan XL] 10 mg PO DAILY #5 tab 02/18/20 Allergies Allergy/AdvReac Type Severity Reaction Status Date / Time amoxicillin [AMOXICILLIN] Allergy Severe RASH Verified 02/18/20 09:37 latex [LATEX] Allergy Severe HIVES, Verified 02/18/20 09:37 RESPIRATORY DISTRESS levalbuterol [LEVALBUTEROL] Allergy Severe AIRWAY Verified 02/18/20 09:37 OCCLUSION Penicillins [PENICILLINS] Allergy Severe RASH Verified 02/18/20 09:37 Sulfa (Sulfonamide Allergy itchy rash Verified 02/18/20 09:37 Antibiotics) duloxetine [DULOXETINE] AdvReac Mild AGITATION Verified 02/18/20 09:37 Review of Systems Review of Systems Narrative: REVIEW OF SYSTEMS: CONSTITUTIONAL: She denies any chills or sweats but has intermittently felt feverish NEUROLOGICAL: She denies any headache numbness tingling anesthesia is paresthesias paresis or paralysis. EENT: She has had no sore throat or trouble swallowing CARDIO-PULMONARY: She denies any shortness of breath cough or chest pain GASTROINTESTINAL: Lower abdominal discomfort as described above but no nausea vomiting diarrhea constipation GENITAL URINARY: She has had increased urinary frequency urgency small volumes without hematuria. She has been having a lot of pelvic spasms. MUSCULOSKELETAL/ RHEUMATOLOGICAL: She complains of persistent low back pain Patient History Medical History Anemia (Acute) Anxiety and depression (Acute) Arthritis (Acute) Asthma (Acute) Chronic pain (Acute) Diabetes (Acute) Diverticulitis (Acute) GERD (gastroesophageal reflux disease) (Acute) Hiatal hernia (Acute) HTN (hypertension) (Acute) Metabolic syndrome (Acute) Migraines (Acute) Morbid obesity with body mass index (BMI) of 50.0 to 59.9 in adult (Chronic 07/25/16) MRSA (methicillin resistant Staphylococcus aureus) (Acute ~2010) Obstructive sleep apnea (Chronic) Osteoarthritis (Acute) Peripheral edema (Acute) Recent urinary tract infection (Acute) Vertigo (Acute) Surgical History History of bilateral tubal ligation (Acute) History of colon surgery (Acute ~2010) History of colonoscopy (Acute) Hx of cholecystectomy (Acute) Hx of tonsillectomy (Acute) alcohol intake frequency: a few times a month Substance Use Type: marijuana Exam Narrative Exam Narrative: PHYSICAL EXAM: CONSTITUTIONAL: Awake, Alert, Oriented, Coherent, Cooperative in NAD. HEAD: AT/NC EENT: PERRL, FROM of eyes, no discharge,. NECK: Supple, no obvious JVD, Trachea is midline without stridor, no palpable LN. SPINE: Palpationof the cervical, Thoracic, Lumbar or Sacral spine reveals no gross deformity or tenderness. Bilateral mild costovertebral angle tenderness THORAX: No deformity, retractions, chest wall tenderness. LUNGS: Clear, symmetrical breath sounds without respiratory distress. HEART: Normal heart tones, regular rhythm and rate without murmur. ABDOMEN: Soft mild tenderness suprapubically without guarding rebound or mass palpable. EXTREMITIES: No edema, deformity, tenderness . SKIN: No rash, bruising,. NEURO: Awake, alert, oriented, conversive, cranial nerves II-XII are symmetrical , moves all 4 extremities and is ambulatory. Initial Vital Signs Initial Vital Signs: Vital Signs Temperature 96.9 F L 02/18/20 09:34 Pulse Rate 96 H 02/18/20 09:34 Respiratory Rate 26 H 02/18/20 09:34 Blood Pressure 179/79 H 02/18/20 09:34 Pulse Oximetry 99 02/18/20 09:34 Course Orders Ordered: Discontinued Medications Cefdinir (Omnicef) 300 mg PO NOW ONE Stop: 02/18/20 10:16 Last Admin: 02/18/20 10:37 Dose: 300 mg Documented by: JEN Oxybutynin Chloride (Ditropan Xl) 10 mg PO DAILY [facility] Last Admin: 02/18/20 10:37 Dose: 10 mg Documented by: JEN Vital Signs Vital signs: Vital Signs - 8 hr 02/18/20 09:34 Temperature 96.9 F L Pulse Rate 96 H Respiratory Rate 26 H Blood Pressure 179/79 H Pulse Oximetry 99 MDM - Female Genitourinary Medical Records Attestation: I reviewed the patient's medical records. Lab Data Attestation: I reviewed the patient's lab results. Labs: Lab Results 02/18/20 Range/Units 09:31 Urine Color [place] Urine Appearance Clear Urine pH TNP Ur Specific [place] TNP Urine Protein TNP Urine Glucose (UA) TNP Urine Ketones TNP Urine Occult Blood TNP Urine Nitrate TNP Urine Bilirubin TNP Urine Urobilinogen TNP Ur Leukocyte Esterase TNP Urine RBC None seen (0-5/HPF) Urine WBC None seen (0-5/HPF) Ur Squamous Epith Cells 0-1 /hpf (0-5/HPF) Urine Bacteria None seen (None) Ur Culture Indicated? Cult not indicated [facility] Narrative Medical decision making narrative: Clinically the patient acted as though she was having an acute urinary tract infection or urethritis. She had bilateral costovertebral angle tenderness. She complained of pelvic pain with bladder spasms. The patient was treated based on her clinical symptomatology. She was prescribed an antibiotic for 4 days and placed on did Triptan for the spasms instructed to continue the peridium and advised to follow-up with her primary care physician to be re-evaluated in 48-72 hours. Discharge Plan Departure Patient Disposition: Home Clinical Impression: Bladder spasms, Urethritis Urinary tract infection Qualifiers: Urinary tract infection type: site unspecified Hematuria presence: without hematuria Qualified Code(s): N39.0 - Urinary tract infection, site not specified Discharge Date/Time: 02/18/20 11:02 Instructions: Interstitial Cystitis, DI for Urinary Tract Infection (UTI), DI for Urethritis Activity Restrictions/Additional Instructions: 1. You need to follow-up with your primary care physician. 2. Your urinalysis microscopic did not show any evidence of infection. Clinically you described an acute urinary tract infection with urgency frequency and dysuria associated with bladder spasms which may be also secondary to urethritis. 3. Take the cefdinir as prescribed for the next 5 days and follow-up with your primary care physician. 4. Take the Ditropan as prescribed for your bladder spasms as well as the peridium which oral already taken. 5. If you develop other worsening abdominal symptoms such as increased abdominal pain, fever, chills, dizziness passing out, persistent uncontrolled nausea and vomiting you need to return to the emergency department to be re-evaluated. Prescriptions: New cefdinir 300 mg capsule 300 mg PO BID Qty: 10 RF: 0 oxybutynin chloride [Ditropan XL] 10 mg tablet extended release 24hr 10 mg PO DAILY Qty: 5 RF: 1 ondansetron HCl [Zofran] 4 mg tablet 4 mg PO Q8H PRN (Reason: nausea and vomiting) Qty: 10 RF: 0 No Action venlafaxine 100 mg tablet 225 mg PO DAILY RF: 0 losartan-hydrochlorothiazide 50-12.5 mg tablet 1 tab PO DAILY RF: 0 Zyrtec 10 mg capsule 10 mg PO DAILY RF: 0 fluconazole [Diflucan] 150 mg tablet 150 mg PO Q3D Qty: 2 RF: 0 albuterol sulfate 2.5 MG/3 ML solution for nebulization 3 ml INH Q4HP PRNQty: 1 RF: 2 fluticasone propion-salmeterol [Advair Diskus] 250 MCG/50 MCG blister with device 1 puff INH BID Qty: 60 RF: 11 hydrocodone-acetaminophen [[place]] 5 MG/325 MG tablet 1 tab PO TIDP PRNQty: 30 RF: 0 fluticasone propionate 16 GM spray,suspension 1 spray Intranasal BID Qty: 16 RF: 5 metformin [Glucophage] 500 mg tablet 500 mg PO BIDCC Qty: 60 RF: 2 sumatriptan succinate [Imitrex] 50 mg tablet See Rx Instructions PO .COMPLEX Qty: 10 RF: 1 montelukast [Singulair] 10 mg tablet 10 mg PO QDAY Qty: 30 RF: 2 ropinirole 0.25 mg tablet 0.25 mg PO BEDTIME RF: 0 omeprazole 40 mg Capsule,Delayed Release(Dr/Ec) 40 mg PO DAILY RF: 0 albuterol sulfate [Proventil HFA] 90 MCG/PUFF HFA aerosol inhaler 1 - 2 puff INH Q4HP MDD unknown PRN (Reason: Secretions) RF: 0 Nebulizer: Home Unit See Rx Instructions .ROUTE .COMPLEX RF: 0 prednisone 50 mg tablet 50 mg PO DAILY Qty: 5 RF: 0 prednisone 50 mg tablet 50 mg PO DAILY Qty: 5 RF: 0 celecoxib [Celebrex] 200 mg capsule 200 mg PO 1600 RF: 0 Referrals: Esperanza Heath PA-C [Primary Care Provider] -
[2020-02-18 10:15] LABS: Culture Indicated Urine Cult Not Indicated; Squamous Epithelial Cell Urine 0-1 /HPF (0-5/HPF)
[2020-02-18] MEDS: OXYBUTYNIN 5 MG ER TAB 10 MG PO (10:37)
[2020-02-18] MEDS: CEFDINIR 300 MG CAPSULE PO (10:37)
== END 2020-02-18 11:02 | disposition home or self-care (01) ==
PROVIDERS: Emergency Provider Emergency Medicine; PCP Physician Assistant
DX: N39.0 Urinary tract infection, site not specified (principal); N32.89 Other specified disorders of bladder
CPT/HCPCS: 81001; 99283

== ENCOUNTER → 2020-07-26 12:41 | Outpatient (CLI) | payer MEDICARE, OTHER, SELFPAY ==
--- NOTE | 2020-07-26 | DI.MRI.S_ITS ---
PROCEDURE: MR LUMBAR SPINE WO CON INDICATIONS: Spinal stenosis, lumbar region TECHNIQUE: Noncontrast sagittal T1 spin echo and T2 fast echo, sagittal STIR, axial T1 and T2 fast spin echo through the lumbar spine. In cases with scoliosis, additional coronal T2 fast spin echo may be performed. COMPARISON: [facility], MR, L-SPINE WITHOUT CONTRAST, 09/18/2017, 13:29. [facility], CR, XR LUMBAR SPINE WITH OLBIQUES PLUS FLEXION EXTENSION, 07/16/2020, 14:14. FINDINGS: Image quality: Excellent. Alignment and Curvature: 5 lumbar type vertebral bodies are present by plain film. There is mild grade 1 anterolisthesis of L4 on L5. Bone Marrow: Marrow is of normal overall signal. No acute vertebral body compression fractures. Mild reactive signal within the endplates adjacent to the T12-L1, L1-L2, L2-L3, L4-L5, and L5-S1 intervertebral discs. Spinal Cord: Conus medullaris terminates at the mid L1 level. Visualized cord demonstrates normal signal and size. Paraspinous Soft Tissues: No paravertebral masses. Moderate dependent edema within the posterior subcutaneous fat. L1-L2: Mild disc desiccation and diffuse disc bulge. Mild bilateral facet and ligamentum flavum hypertrophy. Mild epidural lipomatosis. Mild canal stenosis. No foraminal stenosis. No change. L2-L3: Mild disc height loss and desiccation. Mild diffuse disc bulge. Mild facet and ligamentum flavum hypertrophy. Mild epidural lipomatosis. Mild canal stenosis. Mild bilateral foraminal stenosis. L3-L4: Mild diffuse disc bulge. Mild facet and ligamentum flavum hypertrophy. Mild epidural lipomatosis. There is increased, moderate canal stenosis. No change in mild bilateral foraminal stenosis. L4-L5: Mild disc height loss and desiccation. Mild diffuse disc bulge. Moderate facet hypertrophy bilaterally. Severe canal stenosis. Moderate subarticular foraminal stenosis bilaterally. No change. L5-S1: Mild disc height loss and desiccation. Mild diffuse disc bulge. Mild facet and ligamentum flavum hypertrophy. Mild epidural lipomatosis. Mild canal stenosis. Moderate subarticular foraminal stenosis bilaterally. IMPRESSION: 1. Multilevel degenerative disc and facet disease, as well as ligamentum flavum hypertrophy and epidural lipomatosis. 2. Multilevel canal stenosis, worst at L4-L5 where there is severe canal stenosis. 3. Multilevel foraminal stenosis, worst at L4-L5 and L5-S1 where there are moderate bilateral foraminal stenoses. Dictated by: Sofi Moreno M.D. on 07/26/2020 at 12:50 Approved by: Sofi Moreno M.D. on 07/26/2020 at 12:53
== END ==
PROVIDERS: PCP Physician Assistant; Referring Provider Physical Medicine & Rehabilitation Pain Medicine; Visit Provider Physical Medicine & Rehabilitation Pain Medicine
DX: M48.062 Spinal stenosis, lumbar region with neurogenic claudication (principal)
CPT/HCPCS: 72148

== ENCOUNTER → 2020-10-15 15:38 | Outpatient (CLI) | payer MEDICARE, OTHER, SELFPAY ==
[2020-10-15 16:50] LABS: Hemoglobin A1C% w Est Avg Glu 6.3 % (4.0-6.0)
== END ==
PROVIDERS: PCP Physician Assistant; Referring Provider Orthopaedic Surgery Orthopaedic Surgery of the Spine; Visit Provider Orthopaedic Surgery Orthopaedic Surgery of the Spine
DX: R73.9 Hyperglycemia, unspecified (principal)
CPT/HCPCS: 36415; 83036

== ENCOUNTER → 2020-10-15 15:40 | Outpatient (CLI) | payer MEDICARE, OTHER, SELFPAY ==
[2020-10-15 18:22] LABS: COVID19 -Nasal RAPID Negative (Negative)
== END ==
PROVIDERS: PCP Physician Assistant; Visit Provider Physician Assistant
DX: Z01.812 Encounter for preprocedural laboratory examination (principal); Z20.822 Contact with and (suspected) exposure to COVID-19
CPT/HCPCS: 36415; 83036; 87635

== ENCOUNTER 2020-10-17 06:13 | Inpatient (IN) | payer MEDICARE, OTHER, SELFPAY ==
[2020-10-08 16:27] VITALS: BMI 57.8
--- NOTE | 2020-10-16 10:13 | PM.CN ---
History of Present Illness Consult details Chief complaint: LUMBAR SURGERY Reason for consult: Anesthesia chart review Requesting provider: Ada Mckeon Narrative: Anesthesia consulted for 59 y/o female with spondylolisthesis and lumbar spinal stenosis with planned TLIF. Multiple co-morbidities noted after extensive chart review with pulmonary disease, morbid obesity (BMI 57), some evidence of cardiac disease, HTN, DM2, anxiety and chronic pain. Initial review revealed ECG changes with concern for cardiac-related SMITH. Pt was seen by frame gate mortiser operator on 10/11/20, and SMITH/SOB was attributed to the patient's multiple comorbidities, and unlikely cardiac etiology. Cardiology reported an RCRI of 0, with no further testing indicated prior to surgery, low risk for MACE. Her SOB is reportedly significanly improved with q4wk Nucala injections for her severe persistent asthma. SHe is currently followed by pulmonology, and does not require po steroids for asthma control. Meds Home Medications and Allergies Home Medications Medication Instructions Recorded Confirmed Type albuterol sulfate 3 ml INH Q4HP PRN #1 box 02/05/17 10/10/20 Rx Nebulizer: Home Unit See Rx Instructions .ROUTE .COMPLEX 01/18/18 07/31/19 History omeprazole 40 mg PO DAILY 01/18/18 10/10/20 History metformin 500 mg tablet 500 mg PO BIDCC #60 tab 01/25/18 10/10/20 Rx sumatriptan succinate 50 mg tablet See Rx Instructions PO .COMPLEX 05/14/18 10/10/20 Rx #10 tab montelukast 10 mg tablet 10 mg PO QDAY #30 tab 08/03/18 10/10/20 Rx cetirizine 10 mg capsule 10 mg PO BID 02/19/19 10/10/20 History venlafaxine 100 mg tablet 150 mg PO DAILY tab 02/19/19 10/10/20 History celecoxib [Celebrex] 200 mg PO BEDTIME 03/08/19 10/10/20 History ondansetron HCl [Zofran] 4 mg PO Q8H PRN #10 tab 02/18/20 10/10/20 Rx Nucala Q4W 10/09/20 History tiotropium bromide 2 puff INHALATION DAILY 10/09/20 10/09/20 History albuterol sulfate [ProAir HFA] 2 puff INHALATION Q4H PRN 10/10/20 10/10/20 History amitriptyline 25 mg PO DAILY 10/10/20 10/10/20 History aspirin [Aspirin Child] 81 mg PO DAILY 10/10/20 10/10/20 History calcium citrate [Calcitrate] 200 mg PO BID 10/10/20 10/10/20 History cholecalciferol (vitamin D3) 25 mcg PO DAILY 10/10/20 10/10/20 History clonazepam 0.5 mg PO BID 10/10/20 10/10/20 History docusate sodium 200 mg PO BEDTIME 10/10/20 10/10/20 History fluticasone propion-salmeterol 2 inh INHALATION BID 10/10/20 10/10/20 History [Advair Diskus] hydrochlorothiazide 12.5 mg PO DAILY 10/10/20 10/10/20 History hydrocodone-acetaminophen [[employer]] 1 tab PO Q4H PRN 10/10/20 10/10/20 History ipratropium-albuterol 3 ml INHALATION QID PRN 10/10/20 10/10/20 History losartan [Cozaar] 100 mg PO DAILY 10/10/20 10/10/20 History metoprolol succinate 25 mg PO BID 10/10/20 10/10/20 History multivitamin 1 tab PO DAILY 10/10/20 10/10/20 History ropinirole 4 mg PO BEDTIME 10/10/20 10/10/20 History rosuvastatin 5 mg PO DAILY 10/10/20 10/10/20 History tizanidine 4 mg PO TID PRN 10/10/20 10/10/20 History venlafaxine 75 mg PO DAILY 10/10/20 10/10/20 History vitamin B complex 1 cap PO DAILY 10/10/20 10/10/20 History Allergies Allergy/AdvReac Type Severity Reaction Status Date / Time amoxicillin [AMOXICILLIN] Allergy Severe RASH Verified 10/10/20 16:12 latex [LATEX] Allergy Severe HIVES, Verified 10/10/20 16:12 RESPIRATORY DISTRESS levalbuterol [LEVALBUTEROL] Allergy Severe AIRWAY Verified 10/10/20 16:12 OCCLUSION Penicillins [PENICILLINS] Allergy Severe RASH Verified 10/10/20 16:12 Sulfa (Sulfonamide Allergy itchy rash Verified 10/10/20 16:12 Antibiotics) duloxetine [DULOXETINE] AdvReac Mild AGITATION Verified 10/10/20 16:12 lisinopril AdvReac Unknown Diarrhea Verified 10/10/20 16:12 lactose intolerant AdvReac Mild GI upset, Uncoded 10/10/20 16:40 diarrhea Assessment & Plan Assessment & Plan narrative: Medically complex, morbidly obese 59y/o female for TLIF with Dr Mckeon on 10/17/20. Chart was reviewed and discussed with surgeon. With cardiac evaluation reporting low risk for MACE, we are reassured and willing to proceed. However, discussed with surgeon the increased risk for post-operative complications, such as need for repeat surgery, prolonged hospital stay, respiratory complications with persistent asthma and morbid obesity, and discharge to nursing care facility.
[2020-10-17] VITALS (15 sets, daily range): BP systolic 110–136; BP diastolic 48–81; PULSE 90–103; RESP 10–18; TEMP 36.1–36.8; O2SAT 93–98; BMI 59.0
--- NOTE | 2020-10-17 | DI.RAD.S_ITS ---
PROCEDURE: XR LUMBAR SPINE 2-3V INDICATIONS: L4-5 L5-S1 TLIF TECHNIQUE: 2 views of the lumbar spine were acquired. COMPARISON: [facility] , L-SPINE 2-3 VIEWS, 07/23/2017, 11:11. FINDINGS: Intraoperative images demonstrate fusion at L4-S1 with intervertebral spacers. There is Grade anterolithesis of L4 on L5. IMPRESSION: Intraoperative fusion from L4 through S1. Dictated by: Rubia Kerr M.D. on 10/17/2020 at 13:09 Approved by: Rubia Kerr M.D. on 10/17/2020 at 13:12
[2020-10-17] MEDS: ACETAMINOPHEN IV 1,000 MG/100 ML VIAL 400 MG IV (07:19)
[2020-10-17] MEDS: LACTATED RINGERS 1,000 ML 42 ML IV ×2 (07:19→09:30)
--- NOTE | 2020-10-17 07:33 | PM.PREOP ---
Pre-operative Note COVID-19 COVID-19 status: Negative Result date/Date tested (Pos, Neg/Pending): 10/15/20 Interval Note History & Physical reviewed/Exam performed by Physician: Yes Changes to H&P: No
[2020-10-17] MEDS: CLINDAMYCIN 900 MG/50 ML PIGGYBACK 50 MG IV ×2 (08:04→16:13)
--- NOTE | 2020-10-17 08:34 | SUR.OPER ---
Prone on spine table, head in foam head support, padded chest and pelvic supports, gel pad at knees, lower legs supported by pillows; nipples, genitalia and toes free of pressure, arms secured on foam padded arm boards at <90 degrees abduction. Tape over blanket at thigh secured to table.
[2020-10-17] MEDS: BUPIVACAINE LIPOSOME 266 MG/20 ML VIAL INJ (08:42)
[2020-10-17] MEDS: BUPIVACAINE 0.5% W/ EPI (PF) 30 ML VIAL INJ (08:43)
--- NOTE | 2020-10-17 12:10 | PM.OP.1 ---
Operative Date/Time/Diagnoses Date of procedure: 10/17/20 Time of procedure: 07:55 Pre-op diagnosis: 1. L4-5 spondylolisthesis 2. L4-5, L5-S1 spinal stenosis with neurogenic claudication 3. Epidural lipomatosis Post-op diagnosis: same Procedure & Clinicians Procedure: 1. L4-5, L5-S1 Postero-lateral and posterior interbody fusion 2. L4-5, L5-S1 interbody cage placement. 3. L4-5, L5-S1 decompressive laminectomy with bilateral facetecomies 4. L4-5, L5-S1 Posterior segmental instrumentation 5. [place] of bone marrow from iliac crest 6. Utilization of microsurgical technique and operating microscope Same procedure as scheduled: Yes Indications: Patient has been having chronic back pain and worsening lumbar radiculopathy. Patient failed multiple conservative management with worsening pain weakness and numbness in her lower extremity. Patient has been having difficulty performing activity of daily living. After discussing risks benefits of treatment options, patient elected proceed with surgery. Surgeon: Ada Mckeon Opera Singer: Crystal Ojeda Click Yes if Unassisted: No Anesthesia Type: General Operative Notes Closure Type: primary Specimen(s): none sent Prosthetic devices, grafts, tissues, transplants, or devices: Globus revolve screws, Rise cages Applied: catheter Estimated Blood Loss (mL): 100 Blood products transfused: none Procedure in detail: Patient was seen in the preoperative area. Risks and benefits of the surgery was discussed with the patient. Informed consent was obtained from the patient and placed in the chart. Surgical site was marked. Patient was taken to the operative room. General anesthesia was administered. Prophylactic antibiotic was given to the patient less than 30 min before the incision was made. Patient was placed into a prone position on the Flash table. Patient's back was then prepped and draped in the sterile fashion. Time-out was performed at this time. Using AP and lateral C-arm imaging the interval between L4-S1 was identified and marked on patient's back. A 2 inch incision 2 in from midline was made on the left side first. The fascia was incised in line with skin incision. Globus MARS retractors was placed inside the incision and docked onto the L4 and L5 lamina. Using microsurgical technique and operating microscope, a L4 and L5 laminectomy and L4-5 L5-S1 facetectomy was performed using a Kerrison rongeur. During the process of decompression more than 75% of bilateral L4-5 L5-S1 facets were removed in order to decompress the spinal canal and the lateral recess. The L4-5 L5-S1 level was grossly unstable after the decompression was completed and requiring the fusion procedure. Patient was found have significant amount of epidural lipomatosis at both levels in the epidural space. Epidural lipomas were removed using pituitary micro curette to further decompress the epidural space. The disc space at L4-5, L5-S1 was identified. And a total diskectomy was performed at L4-5, L5-S1 level. The endplates were decorticated using a rasp and shaver. The total diskectomy and decortication was performed at L4-5, L5-S1 level in order to to accomplish a L4-5, L5-S1 fusion. The local bone from the laminectomy and facetectomy was saved for local bone grafting. After the total diskectomy and decortication was completed, Trifecta bone graft material was combined with local bone that was harvested earlier. At this time, a separate skin is incision was made over the iliac crest. A Jamshidi needle was inserted into the iliac crest through a separate skin incision. 5 cc of bone marrow aspiration was obtained through the separate skin incision using a Jamshidi needle from the iliac crest. The bone marrow aspiration was combined with local bone and the Trifecta bone grafting material. The bone grafting material was placed into the L4-5, L5-S1 interbody space along with two cages, one expandable cage at each level. The cages were expanded to their maximum height using the torque limiting screwdriver. At this time a mirror image incision was made on the right side. The fascia was incised in line with the skin incision. Globus MARS retractor was inserted and docked onto the L4-5, L5-S1 posterolateral gutter. Using the power drill, posterior-lateral decortication was performed at L4-5, L5-S1 level until bleeding cortical bone was identified. The remaining bone grafting material was placed into the L4-5 L5-S1 posterior lateral gutter he order to accomplish posterolateral fusion at the L4-5 L5-S1 levels. Using the double C-arm technique, pedicle screws were placed into the L4, L5, S1 pedicles bilaterally. This was done by placing the Jamshidi needle into the pedicles, then placing the guidewires over the Jamshidi needle, and finally placing the cannulated screws over the guidewires bilaterally. After the pedicle screws were placed, 2 titanium rods was locked into the heads of the pedicle screws using locking caps and torque limiting screwdriver. Total 6 pedicles screws were placed. After all the hardware was placed, and confirmed with AP and lateral C-arm imaging, the wound was then irrigated with sterile normal saline and packed with Ray-Ana gauze for 3 min to accomplish hemostasis. After the gauze was removed the deep fascia was closed with #1 Vicryl suture. The subcutaneous layer was closed with 2-0 Vicryl. The skin was closed with skin sandra. Patient tolerated the procedure well. There were no complications. Complications: none Post-operative Condition: stable Disposition: PACU Plan for aftercare: Admit to inpatient hospital
--- NOTE | 2020-10-17 13:23 | SUR.PHASEI ---
\report called to paradise Billingsley Pt stable and denies pain or nausea, taking ice chips without problems and sitiing up A&O talking with staff. Pt transferred to floor by paradise Flanagan and paradise Brown
--- NOTE | 2020-10-17 14:30 | PC.NURSE ---
Assess- Patient is A&Ox3. She is groggy but easily wakes up. She has an incision to her lower back with dressing that is cdi. She denies numbness or tingling to her lower extremities. SCDs in place. Repositioned to her r.side and is comfortable. Patient is 94% on RA. Oxygen at beside nasal cannula if needed.
[2020-10-17] MEDS: SODIUM CHLORIDE 0.9% 1,000 ML 100 ML IV (15:28)
[2020-10-17] MEDS: OXYCODONE IR 5 MG TABLET 10 MG PO ×3 (15:48→22:58)
--- NOTE | 2020-10-17 16:57 | PT-IP ANOTE ---
checked with nurse and stated that pt is not ready for PT and will be more apprpriate tomorrow. will f/u with pt tomorrow.
[2020-10-17] MEDS: METFORMIN HCL 500 MG TABLET PO (17:19)
[2020-10-17] MEDS: TIZANIDINE 4 MG TABLET PO (18:43)
[2020-10-17] MEDS: METOPROLOL ER 25 MG TABLET PO (20:11)
[2020-10-17] MEDS: SENNOSIDES 8.6 MG TABLET 17.2 MG PO (20:11)
[2020-10-17] MEDS: clonazePAM 0.5 MG TABLET PO (20:11)
[2020-10-17] MEDS: DOCUSATE 100 MG CAPSULE PO (20:12)
[2020-10-17] MEDS: CALCIUM CITRATE 200 MG TABLET PO (20:14)
[2020-10-17] MEDS: ROPINIROLE 4 MG TABLET PO (20:14)
[2020-10-18] VITALS (8 sets, daily range): BP systolic 112–132; BP diastolic 68–79; PULSE 90–105; RESP 16–19; TEMP 36.4–37.9; O2SAT 93–96
[2020-10-18] MEDS: CLINDAMYCIN 900 MG/50 ML PIGGYBACK 50 MG IV (00:03)
[2020-10-18] MEDS: MORPHINE 2 MG/ML INJ IV ×2 (00:06→05:49)
[2020-10-18] MEDS: hydrOXYzine pamoate 25 MG CAPSULE PO ×2 (01:34→06:30)
[2020-10-18] MEDS: OXYCODONE IR 5 MG TABLET 10 MG PO ×2 (01:34→04:09)
[2020-10-18] MEDS: SODIUM CHLORIDE 0.9% 1,000 ML 100 ML IV (02:42)
[2020-10-18] MEDS: ACETAMINOPHEN 325 MG TABLET 650 MG PO (04:08)
[2020-10-18] MEDS: PANTOPRAZOLE 40 MG TABLET PO (06:30)
--- NOTE | 2020-10-18 07:29 | PM.PNPO.1 ---
Subjective Subjective Date Patient Seen: 10/18/20 Time Patient Seen: 07:30 Interval history: POD #1 s/p L4-S1 TLIF with Dr. Mckeon. Patient's pain in her back is not well controlled. She has not been up to mobilize yet. Burnette is in place. Exam Vital Signs (past 8 hours): - 10/18/20 00:35 10/18/20 05:00 Temperature 100.2 F H 98.7 F Pulse Rate 97 H 103 H Respiratory Rate 16 18 Blood Pressure 125/76 112/72 Pulse Oximetry 95 94 Oxygen Delivery Method Room Air,CPAP Oxygen Flow Rate 0 Narrative Exam Narrative: Patient lying in bed in NAD. She is alert and oriented X3. Calves are soft, compressible, and nontender bilaterally. SILT throughout BLEs. Foot SCDs on and functioning. She is able to actively dorsiflex and plantarflex. Objective Labs Result Diagrams: 10/18/20 06:52 Labs: Laboratory Results - last 24 hr 10/18/20 06:52 Hgb 12.0 Hct 37.0 PFSH Medical History Anemia Anxiety and depression Arthritis Asthma, severe persistent Chronic pain Chronic rhinitis Diabetes Diverticulitis SMITH (dyspnea on exertion) Environmental allergies GERD (gastroesophageal reflux disease) Hiatal hernia History of gastritis HTN (hypertension) Hyperlipidemia Insomnia Iron deficiency anemia Leukocytosis Metabolic syndrome Migraines Morbid obesity with body mass index (BMI) of 50.0 to 59.9 in adult (07/25/16) MRSA (methicillin resistant Staphylococcus aureus) (~2010) Osteoarthritis Peripheral edema Recent urinary tract infection RLS (restless legs syndrome) Sleep apnea with use of continuous positive airway pressure (CPAP) Tachycardia Vertigo Surgical History History of bilateral tubal ligation History of colon surgery (~2010) History of colonoscopy Hx of cholecystectomy Hx of tonsillectomy Social History household members: family Smoking Status: Never smoker alcohol intake: current Assessment & Plan Post-op Postoperative Procedures: Procedures Operation Date: 10/17/20 07:45 Actual Procedures Side Surgeon p L4-5, L5-S1 TLIF w/ posterior instrumentation Ada Mckeon MD Patient will mobilize with PT today. No excessive bending, lifting, or twisting. Will change pain medication to dilaudid. DC burnette once mobilizes out of bed. Possible DC home tomorrow if mobilizing safely with adequate pain control. Quality VTE Deep Vein Thrombosis/Pulmonary Embolism Present on Admission: No
[2020-10-18] MEDS: clonazePAM 0.5 MG TABLET PO ×2 (08:25→20:32)
[2020-10-18] MEDS: METFORMIN HCL 500 MG TABLET PO ×2 (08:25→16:39)
[2020-10-18] MEDS: VITAMIN B COMPLEX 1 CAPSULE 1 CAP PO (08:25)
[2020-10-18] MEDS: hydroCHLOROthiazide 12.5 MG CAPSULE PO (08:25)
[2020-10-18] MEDS: MULTIVITAMIN 1 TABLET 1 TAB PO (08:25)
[2020-10-18] MEDS: METOPROLOL ER 25 MG TABLET PO ×2 (08:25→20:32)
[2020-10-18] MEDS: DOCUSATE 100 MG CAPSULE PO ×2 (08:25→20:32)
[2020-10-18] MEDS: CALCIUM CITRATE 200 MG TABLET PO ×2 (08:25→20:32)
[2020-10-18] MEDS: CHOLECALCIFEROL (VITAMIN D3) 1,000 UNIT TABLET 1000 UNIT PO (08:25)
[2020-10-18] MEDS: ROSUVASTATIN 10 MG TABLET 5 MG PO (08:25)
[2020-10-18] MEDS: HYDROMORPHONE 4 MG TABLET PO ×2 (08:26→20:33)
[2020-10-18] MEDS: VENLAFAXINE ER 75 MG CAP 225 MG PO (08:26)
[2020-10-18] MEDS: LOSARTAN 50 MG TABLET 100 MG PO (08:26)
[2020-10-18] MEDS: MONTELUKAST 10 MG TABLET PO (08:26)
[2020-10-18] MEDS: FLUTICASONE/SALMETEROL 500/50 60 PUFF DISKUS INH ×2 (08:46→20:12)
[2020-10-18] MEDS: ALBUTEROL HFA MDI 60 PUFF/8 GM INHALER INH (08:46)
[2020-10-18] MEDS: TIOTROPIUM BROMIDE 18 MCG INHALER INH (08:46)
--- NOTE | 2020-10-18 09:14 | OT.IP.EVAL ---
Current Diagnoses Metabolic syndrome (10/17/20) Obstructive sleep apnea (adult) (pediatric) (10/17/20) Essential (primary) hypertension (10/17/20) Unspecified asthma with (acute) exacerbation (10/17/20) Unspecified asthma with status asthmaticus (10/17/20) Gastro-esophageal reflux disease without esophagitis (10/17/20) Spinal stenosis, lumbar region without neurogenic claudication (10/17/20) Tachycardia, unspecified (10/17/20) Dyspnea, unspecified (10/17/20) Surgery Performed Operation Date: 10/17/20 07:45 Actual Procedures p L4-5, L5-S1 TLIF w/ posterior instrumentation - Ada Mckeon MD Past Medical History (Last Reviewed 10/18/20 @ 09:58 by Crystal Ojeda PA-C) Anemia Anxiety and depression Arthritis Asthma, severe persistent Chronic pain Chronic rhinitis Diabetes Diverticulitis SMITH (dyspnea on exertion) Environmental allergies GERD (gastroesophageal reflux disease) Hiatal hernia History of gastritis HTN (hypertension) Hyperlipidemia Insomnia Iron deficiency anemia Leukocytosis Metabolic syndrome Migraines Morbid obesity with body mass index (BMI) of 50.0 to 59.9 in adult (07/25/16) MRSA (methicillin resistant Staphylococcus aureus) (~2010) Osteoarthritis Peripheral edema Recent urinary tract infection RLS (restless legs syndrome) Sleep apnea with use of continuous positive airway pressure (CPAP) Tachycardia Vertigo Surgical History (Last Reviewed 10/18/20 @ 09:58 by Crystal Ojeda PA-C) History of bilateral tubal ligation History of colon surgery (~2010) History of colonoscopy Hx of cholecystectomy Hx of tonsillectomy Occupational Therapy Inpatient Evaluation/Re-Eval M1 PT/OT-IP Prior Functional Status Start: 10/18/20 17:10 Freq: NEEDED Status: Active Protocol: Document 10/18/20 09:14 [facility] (Rec: 10/18/20 17:53 [facility] [id number]) Medical Review Prior Functional Status Medical History Reviewed Yes Communication Pt is an effective verbal communicator Mobility and Gait Pt reports independent ambulation but admits to staying close to yeh and furniture at home. Community mobility is limited to parking lot distances. Activities of Daily Living and IADL's Pt reports needing assist with shoes and socks. She is having a bidet installed while she is at the hospital. Prior Functional Level (Other details) Pt reports a recent fall in the bathroom but denies any other falls in the past year. Social History Household Members family Living Arrangements House Number of Floors (Floors) One Floor Number of Stairs To Enter/Railing? no stairs, handicap unit Home Environment High Toilet,Walk in Shower, Built-In Shower Seat Home Equipment Hand Held Shower,Receiving Dock Checker Additional Social History Comment Pt lives in [place] with her daughter, Leslie, who will be available and able to assist as needed at discharge. M2 OT-IP Current Condition Start: 10/18/20 17:10 Freq: Status: Active Protocol: Document 10/18/20 09:14 [facility] (Rec: 10/18/20 17:53 [facility] [id number]) Occupational Therapy Current Condition Current Condition Evaluation Date 10/18/20 Treatment Diagnosis S/p L4-5, L5-S1 TLIF with post . fusion Diagnosis Onset Date 10/17/20 Post Operative Precautions Lumbar Precautions Log Roll,No Twisting,Limit Bending,Lifting Restriction of 10 lbs,Gait Belt above Incisional Area M3 OT- IP Subjective and Pain Start: 10/18/20 17:10 Freq: Status: Active Protocol: Document 10/18/20 09:14 [facility] (Rec: 10/18/20 17:53 [facility] [id number]) OT- Subjective Occupational Therapy Visit Type Type Initial Evaluation Visit Start Time 09:14 Visit Stop Time 10:04 Total Visit Minutes 50 Occupational Therapy Visit Comments Patient Comments Pt agreed to get up , PT also present as pt needing extensive assist for bed mobility needs. Patient/Caregiver Goals To go home. OT Pain Assessment Pain When Pain Assessed At Rest Pain Present Pain Present Pain Reported Location Back Intensity 5 Scale Used Numeric (0 - 10) M4 OT- IP ADL's Start: 10/18/20 17:10 Freq: Status: Active Protocol: Document 10/18/20 09:14 [facility] (Rec: 10/18/20 17:53 [facility] [id number]) OT [id number] Comments OT Self-Feeding Comments Not at meal time. OT ADL-Grooming General Evaluation Grooming Ability Standby Assistance Areas Needing Assistance Retrieving/Set-up of Grooming Items Comments OT Grooming Comments Able to do while sitting up in the recliner. Educated for grooming best to spit into a cup when standing to best follow her back precautions. OT ADL-Oral Care General Eval Oral Care Ability Independent OT ADL-Dressing General Eval Lower Body Dressing Ability Maximum Assistance Areas Needing Assistance Socks OT ADL-Toileting Comments OT Toileting Comments [place] still in place. Pt states to have a bidet at home to assist with hygiene needs for toileting. OT ADL-Bathing Comments OT Bathing Comments Not performed. M5 OT- IP IADL's Start: 10/18/20 17:10 Freq: Status: Active Protocol: Document 10/18/20 09:14 [facility] (Rec: 10/18/20 17:53 [facility] [id number]) OT-Instrumental Activities of Daily Living Home Safety Awareness Awareness of Need for Assistance at Home Good Awareness Medication Management Medication Management Comments Pt's daughter to be present to assist with her needs. Money Management Money Management Comments Pt's daughter to be present to assist with her needs. Meal Preparation Meal Preparation Caregiver Provides Assist Hot Box Operator Hot Box Operator Caregiver Provides Assist M6 OT- IP Functional Cognition Start: 10/18/20 17:10 Freq: Status: Active Protocol: Document 10/18/20 09:14 [facility] (Rec: 10/18/20 17:53 [facility] [id number]) Cognitive Factors Limiting Selfcare Function Cognitive Ability Level of Alertness Alert Patient Orientation Name,Place,Situation Attention Span Ability Capable of Focused Attention, Capable of Sustained Attention Ability to Follow Commands Able to Follow One Step Commands Cognitive Comments Cognitive Assessment Comments Pt able to follow commands for bed mobility needs. Pt able to recall all back precautions needs. OT- Vision and Hearing OT- Hearing Assessment OT- Hearing Assessment WFL M7 OT- IP Mobility and Balance Start: 10/18/20 17:10 Freq: Status: Active Protocol: Document 10/18/20 09:14 [facility] (Rec: 10/18/20 17:53 [facility] [id number]) OT- Bed Mobility Assessment Rolling Type of Rolling Roll to Right Level of Assistance Maximum Assistance,2 Person Assistance Supine to Sit Supine to Sit Assist Maximum Assistance,2 Person Assistance OT-Transfer Assessment Sit to and From Stand Sit to and from Stand Moderate Assistance,2 Person Assistance Transfers Transfer Ability Moderate Assistance,2 Person Assistance Technique Transfer Destination Bed,Chair Transfer Technique Stand Step Pivot Devices Transfer Assistive Devices Gait Belt,Front Wheeled Walker Comments Mobility Comments MAX AX 2 for log rolling and to get up from side-lying. MODA X2 to stand and to transfer the FWW. Pt just able to take a few steps and complaining of right calf pain . OT- Balance Assessment Sitting Balance and Reactions Static Sitting Balance Ability Fair Standing Balance and Reactions Static Standing Balance Ability Poor M8 OT- IP Objective Assessments Start: 10/18/20 17:10 Freq: Status: Active Protocol: Document 10/18/20 09:14 [facility] (Rec: 10/18/20 17:53 [facility] [id number]) OT-Muscle Tone Assessment Muscle Tone WNL Yes M9 OT- IP Assessment and Plan Start: 10/18/20 17:10 Freq: Status: Active Protocol: Document 10/18/20 09:14 [facility] (Rec: 10/18/20 17:53 [facility] [id number]) OT Summary Assessment and Plan Potential Rehabilitation Potential Good Analytic Complexity at Evaluation Low Summary OT Impairments Balance,Functional Mobility, Grooming,Dressing,Toileting, Bathing,Toilet Transfers, Shower Transfers,Activity Tolerance Progress Towards Goals Slow Progress due to Pain,Slow Progress due to Medical Issues,Slow Progress due to Activity Tolerance Assessment Summary Pt low complexity and now needing extensive two person assist for bed mobility and transfer needs. Pt may need skilled rehab pending caregiver training. Pt states may end up sleeping in the recliner versus the bed. Pt would also benefit from getting a bariatric FWW and BSC. Goals Grooming Goal Independent Dressing Goal Minimal Assistance Toileting Goal Independent Bathing Goal Minimal Assistance Toilet Transfer Goal Independent Shower Transfer Goal Independent Patient/Caregiver Education Goal Demonstrate Post-Op Precautions,Caregiver Independent Assisting Patient Days to Meet Goals 10 Frequency of Treatment Frequency Of Treatment Once a Day Treatment Plan OT Treatment Plan ADL Training,Functional Cognition Training,Functional Mobility,Patient/Family Education,Discharge Planning Discharge Recommendations OT Discharge Recommendations Home with Assistance,SNF Rehab Other Discharge Recommendations Pending caregiver training and progress skilled rehab versus home with assist. Home Equipment Needs Bariatric fww, BSC Transportation Needs at Discharge Wheelchair/Cabulance
--- NOTE | 2020-10-18 09:55 | PT.IIE ---
Current Diagnoses Metabolic syndrome (10/17/20) Obstructive sleep apnea (adult) (pediatric) (10/17/20) Essential (primary) hypertension (10/17/20) Unspecified asthma with (acute) exacerbation (10/17/20) Unspecified asthma with status asthmaticus (10/17/20) Gastro-esophageal reflux disease without esophagitis (10/17/20) Spinal stenosis, lumbar region without neurogenic claudication (10/17/20) Tachycardia, unspecified (10/17/20) Dyspnea, unspecified (10/17/20) Surgery Performed Operation Date: 10/17/20 07:45 Actual Procedures p L4-5, L5-S1 TLIF w/ posterior instrumentation - Ada Mckeon MD Surgical History (Last Reviewed 10/18/20 @ 09:58 by Crystal Ojeda PA-C) History of bilateral tubal ligation History of colon surgery (~2010) History of colonoscopy Hx of cholecystectomy Hx of tonsillectomy Medical History (Last Reviewed 10/18/20 @ 09:58 by Crystal Ojeda PA-C) Anemia Anxiety and depression Arthritis Asthma, severe persistent Chronic pain Chronic rhinitis Diabetes Diverticulitis SMITH (dyspnea on exertion) Environmental allergies GERD (gastroesophageal reflux disease) Hiatal hernia History of gastritis HTN (hypertension) Hyperlipidemia Insomnia Iron deficiency anemia Leukocytosis Metabolic syndrome Migraines Morbid obesity with body mass index (BMI) of 50.0 to 59.9 in adult (07/25/16) MRSA (methicillin resistant Staphylococcus aureus) (~2010) Osteoarthritis Peripheral edema Recent urinary tract infection RLS (restless legs syndrome) Sleep apnea with use of continuous positive airway pressure (CPAP) Tachycardia Vertigo Physical Therapy Inpatient Evaluation/Re-Eval M1 PT/OT-IP Prior Functional Status Start: 10/18/20 08:49 Freq: NEEDED Status: Active Protocol: Document 10/18/20 09:55 AW (Rec: 10/18/20 13:03 AW [id number]) Medical Review Prior Functional Status Medical History Reviewed Yes Communication Pt is an effective verbal communicator Mobility and Gait Pt reports independent ambulation but admits to staying close to yeh and furniture at home. Community mobilty is limited to partking lot distances. Activities of Daily Living and IADL's Pt reports needing assist with shoes and socks. She is having a bidet installed while she is at the hospital. Prior Functional Level (Other details) Pt reports a recent fall in the bathroom but denies any other falls in the past year. Social History Household Members family Living Arrangements House Number of Floors (Floors) One Floor Number of Stairs To Enter/Railing? no stairs, handicap unit Home Environment High Toilet,Walk in Shower, Built-In Shower Seat Home Equipment Hand Held Shower,Health Care Coach Additional Social History Comment Pt lives in [place] with her daughter, Leslie, who will be available and able to assist as needed at discharge. M2 PT-IP Current Condition Start: 10/18/20 08:49 Freq: NEEDED Status: Active Protocol: Document 10/18/20 09:55 AW (Rec: 10/18/20 12:40 AW [id number]) Physical Therapy Current Condition Current Condition Evaluation Date 10/18/20 Treatment Diagnosis L4-L5 L5-S1 TLIF; difficulty in walking Onset Date 10/17/20 Precautions Lumbar Precautions Log Roll,No Twisting,Limit Bending,Lifting Restriction of 10 lbs,Gait Belt above Incisional Area M3 PT-IP Subjective Start: 10/18/20 08:49 Freq: NEEDED Status: Active Protocol: Document 10/18/20 09:55 AW (Rec: 10/18/20 12:40 AW [id number]) Subjective Physical Therapy Visit Type Type Initial Evaluation Visit Start Time 09:15 Visit Stop Time 09:55 Total Visit Minutes 40 Notes Co-eval with OT Physical Therapy Visit Comments Patient Comments Pt is willing to participate with therapy Patient Goals Return home with daughter assisting Therapy Pain Assessment Pain When Pain Assessed During Mobility Pain Present Pain Present Pain Reported Location Back Intensity 5 Scale Used 4/10 at rest Pain Management Techniques Re-positioning,Timing of Activity with Medications M4 PT-IP Mobility and Gait Start: 10/18/20 08:49 Freq: NEEDED Status: Active Protocol: Document 10/18/20 09:55 AW (Rec: 10/18/20 12:51 AW [id number]) PT-Bed Mobility Assessment Rolling Type of Rolling Log Rolling,Roll to Right Level of Assist Maximal Assistance,2 Person Assistance Supine to Sit Supine to Sit Maximum Assistance,2 Person Assistance,Bedrails Scooting Scooting to Edge of Bed Maximum Assistance PT-Transfer Assessment Sit to and From Stand Sit to and from Stand Moderate Assistance,2 Person Assistance,Use of Upper Extremities Equipment Transfer Assistive Device Gait Belt,Front Wheeled Walker Orthotic/Prosthetic Devices or Brace: No Transfers Transfer Destination Chair Transfer Technique Stand Step Pivot Transfer Ability Level of Assist Moderate Assistance,2 Person Assistance,Use of Upper Extremities Comments Mobility Comments Pt was lying in the bed as PT and OT arrived. After education on post-op precautions, PT and OT assisted pt to scoot toward left side of the bed before initiating bed mobility. She had difficulty with motor control of the LLE and required assist to perform a heel slide. She completed log roll to her right side and SL to sit max A x 2 and cues for sequencing. Pt then sat EOB with and without UE support but needed max assist to scoot all the way to EOB to get her feet touching the ground. With cues to pull her feet back and lean forward, pt stood from the bed mod A x 2 and used the FWW to ambulate slowly toward the window with chair follow. She sat on the chair mod A x 2. After a rest break, pt stood from the chair with cues to push from the chair arms mod A x 2. She sat again and was positioned on the chair with call light in reach. OT remained as PT departed. Gait Assessment Gait Gait Assistance Required: Minimum Assistance,2 Person Assist Distance (Feet) 10 Able to Maintain Weight Bearing Status Yes During Gait Assistive Devices Assistive Device Gait Belt,Front Wheeled Walker Orthotic/Prosthetic Devices or Brace: No Gait Deviations General Gait Pattern Antalgic,Decreased Stride Length,Decreased Feet Clearance,Lateral Trunk Lean, Step-to Gait,Wide Based Gait Factors Limiting Gait Function Factors Limiting Gait Function Decreased Activity Tolerance, Decreased Strength,Limited Range of Motion,Pain,Poor Balance Comments Gait Comments Pt ambulated with heavy BUE weightbearing on the FWW. No foot drag was observed either side. Stair Climbing Assessment Comments Stair Climbing Comments Not assessed. No stairs at home. PT-Balance Assessment Sitting Balance and Reactions Static Sitting Balance Ability Good Dynamic Sitting Balance Ability Fair Standing Balance and Reactions Static Standing Balance Ability Fair Dynamic Standing Balance Ability Fair Device Used FWW M5 PT-IP Objective Assessments Start: 10/18/20 08:49 Freq: NEEDED Status: Active Protocol: Document 10/18/20 09:55 AW (Rec: 10/18/20 12:51 AW [id number]) Orientation Orientation/Cognition Level of Alertness Alert Orientation Name,Day of Week,Place, Situation Language Function Ability No Deficits Noted Safety Awareness Understands Safety Issues Memory Description No Deficits Noted Gross Range of Motion Lower Extremity ROM Assessment Bilaterally Impaired Strength Lower Extremity Strength Assessment Bilaterally Impaired Hip 3+/5 Knee 4-/5 Ankle R 4/5; L 4-/5 Sensation Assessment Sensation Gross Sensation WNL Comments Sensation Comments Pt denied numbness M6 PT-IP Treatment Start: 10/18/20 08:49 Freq: NEEDED Status: Active Protocol: Document 10/18/20 09:55 AW (Rec: 10/18/20 12:51 AW [id number]) Physical Therapy Treatment Exercises Exercises Ankle Pumps Education Education Provided Precautions,Weight Bearing Status,Post-Op Packet,Safety Other Treatments Other Treatment Performed Provided education on role of PT, plan of care, lumbar precautions, and safe use of FWW. M7 PT-IP Assessment and Plan Start: 10/18/20 08:49 Freq: NEEDED Status: Active Protocol: Document 10/18/20 09:55 AW (Rec: 10/18/20 12:59 AW [id number]) PT Summary Assessment and Plan Potential Rehabilitation Potential Good Status of Condition at Evaluation Evolving Summary Impairments Pain,ROM,Strength,Balance,Bed Mobility,Transfers,Gait, Activity Tolerance Assessment Summary Erika is a 59 yo woman seen for PT evaluation on POD1 following L4-S1 TLIF. She is independently mobile at baseline but admits to staying close to furniture and yeh for support at home. On evaluation, pt required mod to max assist of 2 for bed mobility, transfers, and short distance ambulation with FWW. Pt's obesity is likely contributing to difficulty with mobility and may affect recovery time. Pt is not safe for discharge home at this time and will require further PT assessment for discharge disposition. Will begin caregiver training with pt's daughter at PM session in case of home discharge but may need to consider SNF rehab. If pt goes home, HH therapy would be indicated. Goals Bed Mobility Goal Minimal Assistance Transfer Goal Contact Guard Assistance,Front Wheeled Walker Gait Goal Contact Guard Assistance,Front Wheel Walker Gait Distance 100 Days to Meet Goals 8 Frequency of Treatment Frequency Of Treatment Twice a Day Treatment Plan Physical Therapy Treatment Plan Bed Mobility Training,Transfer Training,Gait Training, Therapeutic Exercise,Balance Retraining,Post Op Education, Discharge Planning,Hot or Cold Pack,Neuromuscular Re-ed, Manual Therapy Recommendations To Nursing Amount of Assist Needed 3 or More Person Assist Discharge Recommendations PT Discharge Recommendations Home with Assistance,Home Health,SNF Rehab Other Discharge Recommendations SNF vs home with assist and HH depending on progress Equipment Needed for Home Before bariatric FWW; BSC; raised Discharge toilet seat Transportation Needs at Discharge Private Vehicle,Wheelchair/ Cabulance
--- NOTE | 2020-10-18 11:31 | PC.SBAR ---
SITUATION: [] BACKGROUND: [] ASSESSMENT: [] RECOMMENDATION: [] RESPONSE: []
--- NOTE | 2020-10-18 11:32 | PC.NURSE ---
Assess- Patient is A&Ox3, pain medication changed to dilaudid and this has been effective for her pain control. The dressing to her lower back is cdi, she denies numbness or tingling to arms or legs. Up with Physical therapy to the chair, she is going to be a 2-3 person assist getting out of the bed. Once she is up she is able to ambulate with the walker and gaitbelt. Sitting up in chair now. She is easily to arouse but states that she is groggy.
[2020-10-18] MEDS: HYDROMORPHONE 2 MG TABLET PO ×2 (12:31→16:39)
--- NOTE | 2020-10-18 13:00 | CM.DANOTE ---
Addendum entered by Lynda Bill LPN 10/18/20 13:35: PT/OT co-treat session is now noted with OT staying on once PT left the room. PT currently is needing 2 assist...Just spoke with OT who says d/c dispo recommendation is basically fluid at this time: from snf to home with daughter assist and perhaps HH.. Addendum entered by Lynda Bill LPN 10/18/20 13:23: Met with pt as planned. She is found sitting up in bedside chair, seems a bit groggy but is able to participate in discussion. She confirms her PCP: is with the [facility]: currently she is seeing Antwon Barton as her usual PCP is running their COVID program. She reports she has had Covid vaccine 1st and 2nd injections. P:Pt says her plan is for home d/c. She lives in a one level handicapped unit with her daughter Angelica. Angelica will be able to help her out once she is stable for d/c. PT/OT notes are still pending but pt reports she did get up with PT already today. Brief snf discussion just so pt is aware of this benefit. She says she is not planning this as an option at this time. Agreed to check in on her tomorrow and will follow closely as POC unfolds. Original Note: Discharge Planning/Care Management DCP: assessment: case received, EMR reviewed. Discussed in Team Rounds. PT/OT are pending. Morbid Obesity diagnosis: noted: (343 Lbs) as well as multiple medical comorbidities. Will meet with pt for introduction of self and role and follow as POC unfolds. Payer: Medicare and [facility]. Admission status: INPT: confirmed by CHRISTINE Ibanez. CM Discharge Assessment Start: 10/18/20 12:56 Freq: Status: Active Protocol: Document 10/18/20 12:58 ITV (Rec: 10/18/20 13:00 ITV [id number]) Discharge Planning Assessment Advance Directives? No History Provided By Medical Record Has Patient been admitted in last 30 No days? Household Members family Is patient alert and oriented? Yes Review Status In Process Pre-Anesthesia Assessment Start: 10/08/20 16:27 Freq: Status: Complete Protocol: Document 10/08/20 16:27 VLJ (Rec: 10/08/20 16:36 [facility] [id number]) Pre-Anesthesia Assessment Preferred Name Erika Patient Information Reviewed Via Chart Review,Phone Assessment Assessment Completed With Patient Diagnostic Results BMP/CMP,CBC,EKG,Other Comment Covid 10/15/20 @ Primary Care Provider Antwon Barton Seen Specialist in Last 12 Months Yes Specialist Seen Hide Dyer,Emergency, Clinical Manager,Other Comment [facility] Primary Language Prydeinig Supervisor Laboratory Required No Height 162.56 cm Weight 152.861 kg Body Mass Index (BMI) 57.8 Hearing Ability Normal Visual Impairment Partially Limited Visual Assist Glasses Dentition Type Teeth, Natural Present Barriers to Learning Cultural,Visual Other Aids No Hx Anesthesia Reactions Yes: Sensitive to muscle relaxants Hx Family Anesthesia Reaction No Hx Malignant Hyperthermia No Hx Blood Transfusions No Hx Blood Transfusion Reaction No Anesthesia Review Requested Yes: Cardiac Roller No alcohol intake current alcohol intake frequency holidays/special occasions only Smoking Status Never smoker Substance Use Type marijuana Comment edibles Pain Present Pain Reported Comment Low back Musculoskeletal Symptoms Abnormal Gait,Back Pain,Joint Pain,Muscle Weakness,Myalgias, Numbness,Radiating Pain into Limb History of Falling (Recent or History of Yes ) Comment numbness from L4-5 radiating to feet Patient is completely paralyzed or No completely immobile Ambulatory Aid None/bed rest/nurse assist Gait/Transferring Normal/bed rest/immobile,Weak, Impaired Mental Status Oriented to own ability Is patient on oxygen? No Does patient have SMITH/SOB Yes: Hx Asthma Hx Sleep Apnea Yes CPAP/BIPAP use prescribed and used routinely Will Bring CPAP/BIPAP DOS Yes Comment uses most nights, sometimes feels claustrophobic Currently Taking a Beta Lynn No: metoprolol Can You Climb a Flight of Stairs Without No: Hx Asthma SOB Hx Chest Pain No Hx SOB Yes Hx Syncope or Dizziness No Anti-Coagulant Therapy Yes: Aspirin 81 mg/day Has a Hide Dyer Yes: HUNTER Wang Cardiac Testing Yes: Echo @ 01/09/20 EF 60/ 65% Hx Pacemaker/ICD No Cardiac Clearance Received Yes Comment Stress test 10/06/19 Abn, low risk Diet Type At Home Low Carb,Other dysphagia Yes Comment Lactose intolerant Bladder Pattern Incontinent, Stress Urinary Catheter Present No Hx Urinary Self Catheterization No Comment Mini-pad Diabetes Yes HgbA1C 6.0 Comment per patient Patient No Lactating No Hx Drug Resistant Organism Yes: MRSA - incisional abdominal wound 2010 Presence of External or Internal Medical Yes: R TKA Devices Have you had any close contact with No someone diagnosed with COVID-19? Are you experiencing any of these No symptoms symptoms? Evaluation/Screening for possible COVID- Yes 19 infection completed? Comment Covid test 10/15/20 @ Marital Status Lives With family Number of Floors (Floors) One Floor Number of Stairs To Enter/Railing? no stairs, handicap unit Support System Family Does the Patient Have Assistance After Yes Surgery Patient Discharge Plan Description Return Home Feels Safe in Current Environment Yes Been Physically Hurt or Threatened By a No Person in Current Environment Do you have thoughts of harming yourself None or others? Are you currently considering suicide? No Do you have a plan to hurt yourself or No Plan others? Comment Was suicidal in 2017 after her dad , not suicidal in a long time Do You Have Any Spiritual Beliefs That No May Affect Your HC Choices? Do You Have Any Cultural Practices That No May Affect Your HC Choices? Spiritual Referral None Comment Religion Who Can We Speak to About Patient's Care Family & Friends Identifying Code for Release of Patient Dialtsa Information Health Care Proxy/Next of Kin Lyudmila Peguero Health Care Proxy Emergency Contact Name Lyudmila Peguero Emergency Contact Advance Directives? No Power of Shell Shop Supervisor No PAC Instructions Assistance for 24 hours post- op,Bring CPAP/BIPAP,Diabetes instructions,Do not shave/clip surgical site,Durable medical equipment,Medications to take /avoid,Nasal antibiotic,NPO, Post-op transportation,Pre-op antibiotic,Pre-surgical wash, Sensory aids,Sturdy shoes/ comfortable clothes,Do not bring valuables and remove jewelry
[2020-10-18] MEDS: TIZANIDINE 4 MG TABLET PO (15:24)
--- NOTE | 2020-10-18 15:49 | PT-IP ANOTE ---
Attempted to follow up for PT treatment at 1400 and again at 1535. Pt had just returned to bed on first visit and was too sleepy and groggy to safely participate on second visit. Educated pt on importance of continued mobility and encouraged her to get up to the chair or BSC with nursing this evening. Pt's daughter, Leslie, was present and agreed to be here at 10:30 tomorrow for caregiver training. Leslie understood that PT would be available some time between 1030 and 1130.
[2020-10-18] MEDS: ROPINIROLE 4 MG TABLET PO (20:31)
[2020-10-18] MEDS: AMITRIPTYLINE 25 MG TABLET PO (20:32)
[2020-10-18] MEDS: SENNOSIDES 8.6 MG TABLET 17.2 MG PO (20:33)
[2020-10-19] VITALS (11 sets, daily range): BP systolic 109–155; BP diastolic 62–83; PULSE 80–108; RESP 14–20; TEMP 36.3–37.6; O2SAT 91–97
[2020-10-19] MEDS: HYDROMORPHONE 4 MG TABLET PO ×3 (00:13→21:31)
[2020-10-19] MEDS: TIZANIDINE 4 MG TABLET PO (00:14)
[2020-10-19] MEDS: HYDROMORPHONE 2 MG TABLET PO ×2 (06:19→14:51)
[2020-10-19] MEDS: PANTOPRAZOLE 40 MG TABLET PO (06:19)
[2020-10-19] MEDS: METFORMIN HCL 500 MG TABLET PO ×2 (08:49→16:29)
[2020-10-19] MEDS: CALCIUM CITRATE 200 MG TABLET PO ×2 (08:49→21:25)
[2020-10-19] MEDS: ROSUVASTATIN 10 MG TABLET 5 MG PO (08:50)
[2020-10-19] MEDS: MONTELUKAST 10 MG TABLET PO (08:51)
[2020-10-19] MEDS: DOCUSATE 100 MG CAPSULE PO ×2 (08:51→21:25)
[2020-10-19] MEDS: MULTIVITAMIN 1 TABLET 1 TAB PO (08:51)
[2020-10-19] MEDS: VITAMIN B COMPLEX 1 CAPSULE 1 CAP PO (08:51)
[2020-10-19] MEDS: VENLAFAXINE ER 75 MG CAP 225 MG PO (08:52)
[2020-10-19] MEDS: CHOLECALCIFEROL (VITAMIN D3) 1,000 UNIT TABLET 1000 UNIT PO (08:52)
[2020-10-19] MEDS: clonazePAM 0.5 MG TABLET PO ×2 (08:52→21:25)
[2020-10-19] MEDS: hydroCHLOROthiazide 12.5 MG CAPSULE PO (08:55)
[2020-10-19] MEDS: METOPROLOL ER 25 MG TABLET PO ×2 (08:55→21:25)
[2020-10-19] MEDS: LOSARTAN 50 MG TABLET 100 MG PO (08:55)
[2020-10-19] MEDS: SODIUM CHLORIDE 0.9% FLUSH 10 ML IV ×2 (08:56→21:26)
[2020-10-19] MEDS: FLUTICASONE/SALMETEROL 500/50 60 PUFF DISKUS INH ×2 (09:04→20:23)
[2020-10-19] MEDS: TIOTROPIUM BROMIDE 18 MCG INHALER INH (10:09)
--- NOTE | 2020-10-19 10:34 | P.PN_ITS ---
Subjective Subjective Date Patient Seen: 10/19/20 Time Patient Seen: 10:35 Interval history: Patient's pain is well controlled. Denies fever or chills. No nausea or vomiting. Patient has her daughter home to assist her. Otherwise without complaints this morning. Exam Vital Signs (past 8 hours): - 10/19/20 06:00 10/19/20 08:10 10/19/20 08:55 Temperature 99.2 F 99.7 F H Pulse Rate 101 H 83 88 Respiratory Rate 18 16 Blood Pressure 134/83 141/66 H 109/62 Pulse Oximetry 97 91 10/19/20 10:09 Temperature Pulse Rate 89 Respiratory Rate 18 Blood Pressure Pulse Oximetry 94 Oxygen Delivery Method Room Air Oxygen Flow Rate 0 Narrative Exam Narrative: Morbidly obese female in no apparent distress resting comfortably in bed. Lumbar dressing is clean, dry and intact. Sensation is grossly intact to light touch bilateral lower extremities. Motor functions intact bilateral lower extremities. Objective Labs Result Diagrams: 10/18/20 06:52 [facility] Medical History Anemia Anxiety and depression Arthritis Asthma, severe persistent Chronic pain Chronic rhinitis Diabetes Diverticulitis SMITH (dyspnea on exertion) Environmental allergies GERD (gastroesophageal reflux disease) Hiatal hernia History of gastritis HTN (hypertension) Hyperlipidemia Insomnia Iron deficiency anemia Leukocytosis Metabolic syndrome Migraines Morbid obesity with body mass index (BMI) of 50.0 to 59.9 in adult (07/25/16) MRSA (methicillin resistant Staphylococcus aureus) (~2010) Osteoarthritis Peripheral edema Recent urinary tract infection RLS (restless legs syndrome) Sleep apnea with use of continuous positive airway pressure (CPAP) Tachycardia Vertigo Surgical History History of bilateral tubal ligation History of colon surgery (~2010) History of colonoscopy Hx of cholecystectomy Hx of tonsillectomy Social History household members: family Smoking Status: Never smoker alcohol intake: current Assessment & Plan Post-op Postoperative Procedures: Procedures Operation Date: 10/17/20 07:45 Actual Procedures Side Surgeon p L4-5, L5-S1 TLIF w/ posterior instrumentation Ada Mckeon MD Postop day 2 1. L4-5, L5-S1 Postero-lateral and posterior interbody fusion 2. L4-5, L5-S1 interbody cage placement. 3. L4-5, L5-S1 decompressive laminectomy with bilateral facetecomies 4. L4-5, L5-S1 Posterior segmental instrumentation 5. [place] of bone marrow from iliac crest 6. Utilization of microsurgical technique and operating microscope [place] catheter removed this morning. Patient was able to tolerate 2-3 hours in bedside chair yesterday. Patient has otherwise not been out of bed. Patient was too tired to participate in 2nd physical therapy yesterday. Patient's daughter is to be present for physical therapy this morning for caregiver training. Patient to mobilize with physical therapy today. Progressing slowly will likely need at least 1 more day and possibly intermediate facility placement. Quality VTE Deep Vein Thrombosis/Pulmonary Embolism Present on Admission: No
--- NOTE | 2020-10-19 10:59 | PT.IPTN ---
Current Diagnoses Metabolic syndrome (10/17/20) Obstructive sleep apnea (adult) (pediatric) (10/17/20) Essential (primary) hypertension (10/17/20) Unspecified asthma with (acute) exacerbation (10/17/20) Unspecified asthma with status asthmaticus (10/17/20) Gastro-esophageal reflux disease without esophagitis (10/17/20) Spinal stenosis, lumbar region without neurogenic claudication (10/17/20) Tachycardia, unspecified (10/17/20) Dyspnea, unspecified (10/17/20) Surgery Performed Operation Date: 10/17/20 07:45 Actual Procedures p L4-5, L5-S1 TLIF w/ posterior instrumentation - Ada Mckeon MD Physical Therapy Treatment Note M2 PT-IP Current Condition Start: 10/18/20 08:49 Freq: NEEDED Status: Active Protocol: Document 10/18/20 09:55 AW (Rec: 10/18/20 12:40 AW [id number]) Physical Therapy Current Condition Current Condition Evaluation Date 10/18/20 Treatment Diagnosis L4-L5 L5-S1 TLIF; difficulty in walking Onset Date 10/17/20 Precautions Lumbar Precautions Log Roll,No Twisting,Limit Bending,Lifting Restriction of 10 lbs,Gait Belt above Incisional Area M3 PT-IP Subjective Start: 10/18/20 08:49 Freq: NEEDED Status: Active Protocol: Document 10/19/20 10:34 CLB (Rec: 10/19/20 13:09 CLB [id number]) Subjective Physical Therapy Visit Type Type Treatment Note Visit Start Time 10:34 Visit Stop Time 10:59 Total Visit Minutes 25 Notes Daughter Leslie present for tx. Number of OVEN DAUBER Visits 1 Physical Therapy Visit Comments Patient Comments Pt is willing to participate with therapy Therapy Pain Assessment Pain When Pain Assessed During Mobility Pain Present Pain Present Pain Reported Location Back Intensity 6 Scale Used Numeric (0 - 10) Pain Management Techniques Re-positioning,Timing of Activity with Medications M4 PT-IP Mobility and Gait Start: 10/18/20 08:49 Freq: NEEDED Status: Active Protocol: Document 10/19/20 10:34 CLB (Rec: 10/19/20 13:09 CLB [id number]) PT-Bed Mobility Assessment Rolling Type of Rolling Log Rolling,Roll to Right Level of Assist Maximal Assistance,2 Person Assistance Supine to Sit Supine to Sit Maximum Assistance,2 Person Assistance,Bedrails Scooting Scooting to Edge of Bed Maximum Assistance PT-Transfer Assessment Sit to and From Stand Sit to and from Stand Contact Guard Assistance, Minimal Assistance,2 Person Assistance,Use of Upper Extremities Equipment Transfer Assistive Device Gait Belt,Front Wheeled Walker Orthotic/Prosthetic Devices or Brace: No Transfers Transfer Destination Chair Transfer Technique Stand Step Pivot Transfer Ability Level of Assist Moderate Assistance,2 Person Assistance,Use of Upper Extremities Comments Mobility Comments Pt in bed upon arrival, pt requires max verbal and tactile cues throughout session for hand placement. Pt require Max A x2 for LR and sidelying to sit. Pt was able to cage/vault supervisor both legs before rolling with cues to do so. Pt then required Max A x2 to scoot to EOB. Pt stood CGA-Min A x2 and transferred with stand step pivot to chair. Pt requires increased time and verbal cues for walker and step sequencing. Once pt was positioned in front of chair pt required side steps to center herself. Pt required tactile cues to get hands to arms of chair then was able to slowly lower herself to a seated position. Pt then required Min A to walk hips back in chair for proper position in chair. Left pt in reclined chair with all needs within reach. Daughter present . Gait Assessment Comments Gait Comments unable, transfer only Stair Climbing Assessment Comments Stair Climbing Comments Not assessed. No stairs at home. PT-Balance Assessment Sitting Balance and Reactions Static Sitting Balance Ability Good Dynamic Sitting Balance Ability Fair Standing Balance and Reactions Static Standing Balance Ability Fair Dynamic Standing Balance Ability Fair Device Used FWW M5 PT-IP Objective Assessments Start: 10/18/20 08:49 Freq: NEEDED Status: Active Protocol: Document 10/18/20 09:55 AW (Rec: 10/18/20 12:51 AW [id number]) Orientation Orientation/Cognition Level of Alertness Alert Orientation Name,Day of Week,Place, Situation Language Function Ability No Deficits Noted Safety Awareness Understands Safety Issues Memory Description No Deficits Noted Gross Range of Motion Lower Extremity ROM Assessment Bilaterally Impaired Strength Lower Extremity Strength Assessment Bilaterally Impaired Hip 3+/5 Knee 4-/5 Ankle R 4/5; L 4-/5 Sensation Assessment Sensation Gross Sensation WNL Comments Sensation Comments Pt denied numbness M6 PT-IP Treatment Start: 10/18/20 08:49 Freq: NEEDED Status: Active Protocol: Document 10/18/20 09:55 AW (Rec: 10/18/20 12:51 AW [id number]) Physical Therapy Treatment Exercises Exercises Ankle Pumps Education Education Provided Precautions,Weight Bearing Status,Post-Op Packet,Safety Other Treatments Other Treatment Performed Provided education on role of PT, plan of care, lumbar precautions, and safe use of FWW. M7 PT-IP Assessment and Plan Start: 10/18/20 08:49 Freq: NEEDED Status: Active Protocol: Document 10/19/20 10:34 CLB (Rec: 10/19/20 13:09 CLB [id number]) PT Summary Assessment and Plan Potential Rehabilitation Potential Good Status of Condition at Evaluation Evolving Summary Impairments Pain,ROM,Strength,Balance,Bed Mobility,Transfers,Gait, Activity Tolerance Progress Towards Goals Slow Progress due to Pain,Slow Progress due to Activity Tolerance Assessment Summary Pt is requiring Max A x2 for all bed mobility. Pt required CGA-Min A for sit- stand from bed (high surface) but anticipate increased assist for sit-stand from chair. Due to pain and decreased activity tolerance pt was unable to ambulate. Pt and daughter agreeable to SNF rehab before returning home. Pt will benefit from SNF rehab to increase strength and activity tolerance for functional mobility. Goals Bed Mobility Goal Minimal Assistance Transfer Goal Contact Guard Assistance,Front Wheeled Walker Gait Goal Contact Guard Assistance,Front Wheel Walker Gait Distance 100 Days to Meet Goals 8 Frequency of Treatment Frequency Of Treatment Twice a Day Treatment Plan Physical Therapy Treatment Plan Bed Mobility Training,Transfer Training,Gait Training, Therapeutic Exercise,Balance Retraining,Post Op Education, Discharge Planning,Hot or Cold Pack,Neuromuscular Re-ed, Manual Therapy Recommendations To Nursing Amount of Assist Needed 3 or More Person Assist Discharge Recommendations PT Discharge Recommendations SNF Rehab Transportation Needs at Discharge Wheelchair/Cabulance
--- NOTE | 2020-10-19 10:59 | OT.IP.TRT ---
Current Diagnoses Metabolic syndrome (10/17/20) Obstructive sleep apnea (adult) (pediatric) (10/17/20) Essential (primary) hypertension (10/17/20) Unspecified asthma with (acute) exacerbation (10/17/20) Unspecified asthma with status asthmaticus (10/17/20) Gastro-esophageal reflux disease without esophagitis (10/17/20) Spinal stenosis, lumbar region without neurogenic claudication (10/17/20) Tachycardia, unspecified (10/17/20) Dyspnea, unspecified (10/17/20) Surgery Performed Operation Date: 10/17/20 07:45 Actual Procedures p L4-5, L5-S1 TLIF w/ posterior instrumentation - Ada Mckeon MD Occupational Therapy Treatment Note M2 OT-IP Current Condition Start: 10/18/20 17:10 Freq: Status: Active Protocol: Document 10/18/20 09:14 [facility] (Rec: 10/18/20 17:53 [facility] [id number]) Occupational Therapy Current Condition Current Condition Evaluation Date 10/18/20 Treatment Diagnosis S/p L4-5, L5-S1 TLIF with post . fusion Diagnosis Onset Date 10/17/20 Post Operative Precautions Lumbar Precautions Log Roll,No Twisting,Limit Bending,Lifting Restriction of 10 lbs,Gait Belt above Incisional Area M3 OT- IP Subjective and Pain Start: 10/18/20 17:10 Freq: Status: Active Protocol: Document 10/19/20 12:58 CGR (Rec: 10/19/20 13:09 CGR [id number]) OT- Subjective Occupational Therapy Visit Type Type Progress Note Visit Start Time 10:34 Visit Stop Time 10:59 Total Visit Minutes 25 Notes co-treat with P.T. OT Pain Assessment Pain When Pain Assessed At Rest Pain Present Pain Present Pain Reported Location Back Intensity 6 Scale Used Numeric (0 - 10) Management Techniques Distraction,Modification of Treatment,Re-positioning M4 OT- IP ADL's Start: 10/18/20 17:10 Freq: Status: Active Protocol: Document 10/18/20 09:14 [facility] (Rec: 10/18/20 17:53 [facility] [id number]) OT [id number] Comments OT Self-Feeding Comments Not at meal time. OT ADL-Grooming General Evaluation Grooming Ability Standby Assistance Areas Needing Assistance Retrieving/Set-up of Grooming Items Comments OT Grooming Comments Able to do while sitting up in the recliner. Educated for grooming best to spit into a cup when standing to best follow her back precautions. OT ADL-Oral Care General Eval Oral Care Ability Independent OT ADL-Dressing General Eval Lower Body Dressing Ability Maximum Assistance Areas Needing Assistance Socks OT ADL-Toileting Comments OT Toileting Comments Waddell still in place. Pt states tp have a bidet at home to assist with hygiene needs for toileting. OT ADL-Bathing Comments OT Bathing Comments Not performed. M5 OT- IP IADL's Start: 10/18/20 17:10 Freq: Status: Active Protocol: Document 10/18/20 09:14 [facility] (Rec: 10/18/20 17:53 [facility] [id number]) OT-Instrumental Activities of Daily Living Home Safety Awareness Awareness of Need for Assistance at Home Good Awareness Medication Management Medication Management Comments Pt's daughter to be present to assist with her needs. Money Management Money Management Comments Pt's daughter to be present to assist with her needs. Meal Preparation Meal Preparation Caregiver Provides Assist Hi Lo Driver Hi Lo Driver Caregiver Provides Assist M6 OT- IP Functional Cognition Start: 10/18/20 17:10 Freq: Status: Active Protocol: Document 10/18/20 09:14 [facility] (Rec: 10/18/20 17:53 [facility] [id number]) Cognitive Factors Limiting Selfcare Function Cognitive Ability Level of Alertness Alert Patient Orientation Name,Place,Situation Attention Span Ability Capable of Focused Attention, Capable of Sustained Attention Ability to Follow Commands Able to Follow One Step Commands Cognitive Comments Cognitive Assessment Comments Pt able to follow commands for bed mobility needs. Pt able to recall all back precautions needs. OT- Vision and Hearing OT- Hearing Assessment OT- Hearing Assessment WFL M7 OT- IP Mobility and Balance Start: 10/18/20 17:10 Freq: Status: Active Protocol: Document 10/19/20 12:58 CGR (Rec: 10/19/20 13:09 CGR [id number]) OT- Bed Mobility Assessment Rolling Type of Rolling Roll to Right Level of Assistance Maximum Assistance,2 Person Assistance,Bedrails Supine to Sit Supine to Sit Assist Maximum Assistance,2 Person Assistance,Bedrails Scooting Scooting to Edge of Bed Maximum Assistance,2 Person Assistance OT-Transfer Assessment Sit to and From Stand Sit to and from Stand Contact Guard Assistance, Minimal Assistance,2 Person Assistance Transfers Transfer Ability Moderate Assistance,2 Person Assistance Technique Transfer Destination Bed,Chair Transfer Technique Stand Step Pivot Devices Transfer Assistive Devices Gait Belt,Front Wheeled Walker Comments Mobility Comments Pt needed max x 2 for bed mobility and CGA to min a for sit to stand from high bed. Pt needed mod a and max extra time for transfer to chair with max encouragment, verbal cues, and tactile cues. OT- Balance Assessment Sitting Balance and Reactions Static Sitting Balance Ability Fair Dynamic Sitting Balance Ability Poor M8 OT- IP Objective Assessments Start: 10/18/20 17:10 Freq: Status: Active Protocol: Document 10/18/20 09:14 [facility] (Rec: 10/18/20 17:53 [facility] [id number]) OT-Muscle Tone Assessment Muscle Tone WNL Yes M9 OT- IP Assessment and Plan Start: 10/18/20 17:10 Freq: Status: Active Protocol: Document 10/19/20 12:58 CGR (Rec: 10/19/20 13:09 CGR [id number]) OT Summary Assessment and Plan Potential Rehabilitation Potential Good Analytic Complexity at Evaluation Low Summary OT Impairments Balance,Functional Mobility, Grooming,Dressing,Toileting, Bathing,Toilet Transfers, Shower Transfers,Activity Tolerance Progress Towards Goals Slow Progress due to Pain,Slow Progress due to Medical Issues,Slow Progress due to Activity Tolerance Assessment Summary Pt is progressing slowly s/p L4-S1 TLIF. Pt with pain and weakness that are impacting her ability to return to her baseline. Pt will benefit from SNF upon discharge as pt is still needing significant 2 person assist at this time. Goals Grooming Goal Independent Dressing Goal Minimal Assistance Toileting Goal Independent Bathing Goal Minimal Assistance Toilet Transfer Goal Independent Shower Transfer Goal Independent Patient/Caregiver Education Goal Demonstrate Post-Op Precautions,Caregiver Independent Assisting Patient Days to Meet Goals 10 Frequency of Treatment Frequency Of Treatment Once a Day Treatment Plan OT Treatment Plan ADL Training,Functional Cognition Training,Functional Mobility,Patient/Family Education,Discharge Planning Discharge Recommendations OT Discharge Recommendations Home with Assistance,SNF Rehab Other Discharge Recommendations Pending caregiver training and progress skilled rehab versus home with assist. Home Equipment Needs Barriatric fww, BSC Transportation Needs at Discharge Wheelchair/Cabulance
--- NOTE | 2020-10-19 13:36 | CM.DPC ---
DCP: continued: met with pt and her daughter Angelica: [phone] after caregiver training session and recommendation by therapy team for snf. Pt is now agreeable to same and her daughter supports this. Medicare: INPT status as of 10/17 Medicare snf list: given. choice: [facility]. [facility] was given the referral and is still reviewing. Bariatric equipment and medication costs are part of the review and Covid restrictions at snf mean that nebulizer treatments can be given. [facility] is aware that Angelica would be able to bring in some of patients home medications if these are not financially manageable at the snf level. P: [facility], likely tomorrow, pending final acceptance. PASRR: needed.
--- NOTE | 2020-10-19 13:37 | PT.IPTN ---
Current Diagnoses Metabolic syndrome (10/17/20) Obstructive sleep apnea (adult) (pediatric) (10/17/20) Essential (primary) hypertension (10/17/20) Unspecified asthma with (acute) exacerbation (10/17/20) Unspecified asthma with status asthmaticus (10/17/20) Gastro-esophageal reflux disease without esophagitis (10/17/20) Spinal stenosis, lumbar region without neurogenic claudication (10/17/20) Tachycardia, unspecified (10/17/20) Dyspnea, unspecified (10/17/20) Surgery Performed Operation Date: 10/17/20 07:45 Actual Procedures p L4-5, L5-S1 TLIF w/ posterior instrumentation - Ada Mckeon MD Physical Therapy Treatment Note M2 PT-IP Current Condition Start: 10/18/20 08:49 Freq: NEEDED Status: Active Protocol: Document 10/18/20 09:55 AW (Rec: 10/18/20 12:40 AW [id number]) Physical Therapy Current Condition Current Condition Evaluation Date 10/18/20 Treatment Diagnosis L4-L5 L5-S1 TLIF; difficulty in walking Onset Date 10/17/20 Precautions Lumbar Precautions Log Roll,No Twisting,Limit Bending,Lifting Restriction of 10 lbs,Gait Belt above Incisional Area M3 PT-IP Subjective Start: 10/18/20 08:49 Freq: NEEDED Status: Active Protocol: Document 10/19/20 13:23 CLB (Rec: 10/19/20 13:57 CLB [id number]) Subjective Physical Therapy Visit Type Type Treatment Note Visit Start Time 13:23 Visit Stop Time 13:37 Total Visit Minutes 14 Notes Daughter Leslie present for tx. MACHINE DYER and RN student assisted with transfer. Number of CADDIE Visits 2 Physical Therapy Visit Comments Patient Comments Pt is willing to participate with therapy Therapy Pain Assessment Pain When Pain Assessed During Mobility Pain Present Pain Present Pain Reported Location Back Scale Used did not state Pain Behaviors Facial Grimacing,[place] Pain Management Techniques Re-positioning,Timing of Activity with Medications M4 PT-IP Mobility and Gait Start: 10/18/20 08:49 Freq: NEEDED Status: Active Protocol: Document 10/19/20 13:23 CLB (Rec: 10/19/20 13:57 CLB [id number]) PT-Bed Mobility Assessment Sit to Supine Sit to Supine Maximum Assistance,1 Person Assistance,2 Person Assistance Scooting Scooting Up and Down in Bed Maximum Assistance PT-Transfer Assessment Sit to and From Stand Sit to and from Stand Contact Guard Assistance, Minimal Assistance,2 Person Assistance,Use of Upper Extremities Equipment Transfer Assistive Device Gait Belt,Front Wheeled Walker Orthotic/Prosthetic Devices or Brace: No Transfers Transfer Destination Bed,Bedside Commode Transfer Technique Stand Step Pivot Transfer Ability Level of Assist Moderate Assistance,2 Person Assistance,Use of Upper Extremities Comments Mobility Comments Pt stood from [facility] Min A x2 and CGA for standing balance during pericare. Pt then required Min A x2 for stand step pivot to bedside with side steps to move closer to the HOB. Pt then sat on bed and required Max A x3 for sidelying to supine. Pt then required Max A x2 to position pt in bed for comfort. Pt left in bed with all needs within reach, SCD's on and daughter present. Gait Assessment Comments Gait Comments unable, transfer only Stair Climbing Assessment Comments Stair Climbing Comments Not assessed. No stairs at home. PT-Balance Assessment Sitting Balance and Reactions Static Sitting Balance Ability Good Dynamic Sitting Balance Ability Fair Standing Balance and Reactions Static Standing Balance Ability Fair Dynamic Standing Balance Ability Fair Device Used FWW M5 PT-IP Objective Assessments Start: 10/18/20 08:49 Freq: NEEDED Status: Active Protocol: Document 10/18/20 09:55 AW (Rec: 10/18/20 12:51 AW [id number]) Orientation Orientation/Cognition Level of Alertness Alert Orientation Name,Day of Week,Place, Situation Language Function Ability No Deficits Noted Safety Awareness Understands Safety Issues Memory Description No Deficits Noted Gross Range of Motion Lower Extremity ROM Assessment Bilaterally Impaired Strength Lower Extremity Strength Assessment Bilaterally Impaired Hip 3+/5 Knee 4-/5 Ankle R 4/5; L 4-/5 Sensation Assessment Sensation Gross Sensation WNL Comments Sensation Comments Pt denied numbness M6 PT-IP Treatment Start: 10/18/20 08:49 Freq: NEEDED Status: Active Protocol: Document 10/18/20 09:55 AW (Rec: 10/18/20 12:51 AW [id number]) Physical Therapy Treatment Exercises Exercises Ankle Pumps Education Education Provided Precautions,Weight Bearing Status,Post-Op Packet,Safety Other Treatments Other Treatment Performed Provided education on role of PT, plan of care, lumbar precautions, and safe use of FWW. M7 PT-IP Assessment and Plan Start: 10/18/20 08:49 Freq: NEEDED Status: Active Protocol: Document 10/19/20 13:23 CLB (Rec: 10/19/20 13:57 CLB [id number]) PT Summary Assessment and Plan Potential Rehabilitation Potential Good Status of Condition at Evaluation Evolving Summary Impairments Pain,ROM,Strength,Balance,Bed Mobility,Transfers,Gait, Activity Tolerance Progress Towards Goals Slow Progress due to Pain,Slow Progress due to Activity Tolerance Assessment Summary Pt continues to required Max A x2-3 for bed mobility and Min A x2 for transfers. Pt requires increased time to perform tasks and needs max verbal and tactile cues and one step commands for sequencing during transfers. Pt will benefit from SNF rehab to increase strength and activity tolerance before returning home. Goals Bed Mobility Goal Minimal Assistance Transfer Goal Contact Guard Assistance,Front Wheeled Walker Gait Goal Contact Guard Assistance,Front Wheel Walker Gait Distance 100 Days to Meet Goals 8 Frequency of Treatment Frequency Of Treatment Twice a Day Treatment Plan Physical Therapy Treatment Plan Bed Mobility Training,Transfer Training,Gait Training, Therapeutic Exercise,Balance Retraining,Post Op Education, Discharge Planning,Hot or Cold Pack,Neuromuscular Re-ed, Manual Therapy Recommendations To Nursing Amount of Assist Needed 3 or More Person Assist Discharge Recommendations PT Discharge Recommendations SNF Rehab Transportation Needs at Discharge Wheelchair/Cabulance
--- NOTE | 2020-10-19 14:11 | PC.NURSE ---
Addendum entered by Renay Hwang R.N. 10/19/20 15:02: Dressing changed. Original Note: Day shift note: Patient awake, alert, and cooperative. Up OOB with PT to chair and BSC. Voided post F/C removal. Pain controlled with Dilaudid 2mg PO. Dressing inspected with Rob SILVA, DESHAWN and in place. Daughter at bedside providing supportive care and will return on 10/20 for continued support.
[2020-10-19] MEDS: ACETAMINOPHEN 325 MG TABLET 650 MG PO (16:28)
[2020-10-19] MEDS: hydrOXYzine pamoate 25 MG CAPSULE PO (16:29)
[2020-10-19] MEDS: AMITRIPTYLINE 25 MG TABLET PO (21:24)
[2020-10-19] MEDS: SENNOSIDES 8.6 MG TABLET 17.2 MG PO (21:25)
[2020-10-19] MEDS: ROPINIROLE 4 MG TABLET PO (21:26)
[2020-10-20] MEDS: HYDROMORPHONE 4 MG TABLET PO ×2 (01:25→05:58)
[2020-10-20] MEDS: TIZANIDINE 4 MG TABLET PO (03:43)
[2020-10-20 05:34] VITALS: BP 120/66; PULSE 101; RESP 18; TEMP 36.8
[2020-10-20 05:38] VITALS: O2SAT 96
[2020-10-20] MEDS: PANTOPRAZOLE 40 MG TABLET PO (05:58)
[2020-10-20 08:00] VITALS: BP 123/61; PULSE 95; RESP 16; TEMP 36.3; O2SAT 94
[2020-10-20] MEDS: METFORMIN HCL 500 MG TABLET PO (08:00)
[2020-10-20] MEDS: MULTIVITAMIN 1 TABLET 1 TAB PO (08:00)
[2020-10-20] MEDS: ROSUVASTATIN 10 MG TABLET 5 MG PO (08:00)
[2020-10-20] MEDS: clonazePAM 0.5 MG TABLET PO (08:00)
[2020-10-20] MEDS: CALCIUM CITRATE 200 MG TABLET PO (08:00)
[2020-10-20] MEDS: MONTELUKAST 10 MG TABLET PO (08:00)
[2020-10-20] MEDS: METOPROLOL ER 25 MG TABLET PO (08:02)
[2020-10-20] MEDS: hydrOXYzine pamoate 25 MG CAPSULE PO (08:02)
[2020-10-20] MEDS: CHOLECALCIFEROL (VITAMIN D3) 1,000 UNIT TABLET 1000 UNIT PO (08:02)
[2020-10-20] MEDS: LOSARTAN 50 MG TABLET 100 MG PO (08:02)
[2020-10-20] MEDS: MAGNESIUM HYDROXIDE 30 ML UDC PO (08:02)
[2020-10-20] MEDS: DOCUSATE 100 MG CAPSULE PO (08:02)
[2020-10-20] MEDS: SODIUM CHLORIDE 0.9% FLUSH 10 ML IV ×2 (08:02→08:07)
[2020-10-20] MEDS: hydroCHLOROthiazide 12.5 MG CAPSULE PO (08:36)
[2020-10-20] MEDS: VENLAFAXINE ER 75 MG CAP 225 MG PO (08:36)
--- NOTE | 2020-10-20 08:56 | OT.IP.TRT ---
Current Diagnoses Metabolic syndrome (10/17/20) Obstructive sleep apnea (adult) (pediatric) (10/17/20) Essential (primary) hypertension (10/17/20) Unspecified asthma with (acute) exacerbation (10/17/20) Unspecified asthma with status asthmaticus (10/17/20) Gastro-esophageal reflux disease without esophagitis (10/17/20) Spinal stenosis, lumbar region without neurogenic claudication (10/17/20) Tachycardia, unspecified (10/17/20) Dyspnea, unspecified (10/17/20) Surgery Performed Operation Date: 10/17/20 07:45 Actual Procedures p L4-5, L5-S1 TLIF w/ posterior instrumentation - Ada Mckeon MD Occupational Therapy Treatment Note M2 OT-IP Current Condition Start: 10/18/20 17:10 Freq: Status: Active Protocol: Document 10/18/20 09:14 CCC (Rec: 10/18/20 17:53 [facility] [id number]) Occupational Therapy Current Condition Current Condition Evaluation Date 10/18/20 Treatment Diagnosis S/p L4-5, L5-S1 TLIF with post . fusion Diagnosis Onset Date 10/17/20 Post Operative Precautions Lumbar Precautions Log Roll,No Twisting,Limit Bending,Lifting Restriction of 10 lbs,Gait Belt above Incisional Area M3 OT- IP Subjective and Pain Start: 10/18/20 17:10 Freq: Status: Active Protocol: Document 10/20/20 10:34 CGR (Rec: 10/20/20 10:52 CGR [id number]) OT- Subjective Occupational Therapy Visit Type Type Progress Note Visit Start Time 08:45 Visit Stop Time 08:56 Total Visit Minutes 11 Notes Pt is very lethargic OT Pain Assessment Pain When Pain Assessed At Rest Pain Present Pain Present Denied Pain M4 OT- IP ADL's Start: 10/18/20 17:10 Freq: Status: Active Protocol: Document 10/20/20 10:34 CGR (Rec: 10/20/20 10:52 CGR [id number]) OT [id number]-Rgewiyv Comments OT Self-Feeding Comments Pt is too lethargic to feed. OT ADL-Grooming Comments OT Grooming Comments Not performed OT ADL-Oral Care General Eval Oral Care Ability Moderate Assistance Areas of Assistance Brushing Teeth,Retrieving/Set- Up of Items Comments Oral Care Comments Seated in chair, pt is too lethargic to perform without mod VC and tactile cues. OT ADL-Dressing Comments OT Dressing Comments Not performed OT ADL-Toileting Comments OT Toileting Comments Not performed OT ADL-Bathing Comments OT Bathing Comments Not performed M5 OT- IP IADL's Start: 10/18/20 17:10 Freq: Status: Active Protocol: Document 10/18/20 09:14 [facility] (Rec: 10/18/20 17:53 [facility] [id number]) OT-Instrumental Activities of Daily Living Home Safety Awareness Awareness of Need for Assistance at Home Good Awareness Medication Management Medication Management Comments Pt's daughter to be present to assist with her needs. Money Management Money Management Comments Pt's daughter to be present to assist with her needs. Meal Preparation Meal Preparation Caregiver Provides Assist Glue Reel Operator Glue Reel Operator Caregiver Provides Assist M6 OT- IP Functional Cognition Start: 10/18/20 17:10 Freq: Status: Active Protocol: Document 10/18/20 09:14 [facility] (Rec: 10/18/20 17:53 [facility] [id number]) Cognitive Factors Limiting Selfcare Function Cognitive Ability Level of Alertness Alert Patient Orientation Name,Place,Situation Attention Span Ability Capable of Focused Attention, Capable of Sustained Attention Ability to Follow Commands Able to Follow One Step Commands Cognitive Comments Cognitive Assessment Comments Pt able to follow commands for bed mobility needs. Pt able to recall all back precautions needs. OT- Vision and Hearing OT- Hearing Assessment OT- Hearing Assessment WFL M7 OT- IP Mobility and Balance Start: 10/18/20 17:10 Freq: Status: Active Protocol: Document 10/19/20 12:58 CGR (Rec: 10/19/20 13:09 CGR [id number]) OT- Bed Mobility Assessment Rolling Type of Rolling Roll to Right Level of Assistance Maximum Assistance,2 Person Assistance,Bedrails Supine to Sit Supine to Sit Assist Maximum Assistance,2 Person Assistance,Bedrails Scooting Scooting to Edge of Bed Maximum Assistance,2 Person Assistance OT-Transfer Assessment Sit to and From Stand Sit to and from Stand Contact Guard Assistance, Minimal Assistance,2 Person Assistance Transfers Transfer Ability Moderate Assistance,2 Person Assistance Technique Transfer Destination Bed,Chair Transfer Technique Stand Step Pivot Devices Transfer Assistive Devices Gait Belt,Front Wheeled Walker Comments Mobility Comments Pt needed max x 2 for bed mobility and CGA to min a for sit to stand from high bed. Pt needed mod a and max extra time for transfer to chair with max encouragment, verbal cues, and tactile cues. OT- Balance Assessment Sitting Balance and Reactions Static Sitting Balance Ability Fair Dynamic Sitting Balance Ability Poor M8 OT- IP Objective Assessments Start: 10/18/20 17:10 Freq: Status: Active Protocol: Document 10/18/20 09:14 CCC (Rec: 10/18/20 17:53 CCC [id number]) OT-Muscle Tone Assessment Muscle Tone WNL Yes M9 OT- IP Assessment and Plan Start: 10/18/20 17:10 Freq: Status: Active Protocol: Document 10/20/20 10:34 CGR (Rec: 10/20/20 10:52 CGR [id number]) OT Summary Assessment and Plan Potential Rehabilitation Potential Good Analytic Complexity at Evaluation Low Summary OT Impairments Balance,Functional Mobility, Grooming,Dressing,Toileting, Bathing,Toilet Transfers, Shower Transfers,Activity Tolerance Progress Towards Goals Slow Progress due to Pain,Slow Progress due to Medical Issues,Slow Progress due to Activity Tolerance Assessment Summary Pt is progressing slowly s/p L4-S1 TLIF. PT is very lethargic throughout session. Session is limited d/t lethargy and pt's ability to perform activities at this time. Pt is planned for discharge to SNF today. Goals Grooming Goal Independent Dressing Goal Minimal Assistance Toileting Goal Independent Bathing Goal Minimal Assistance Toilet Transfer Goal Independent Shower Transfer Goal Independent Patient/Caregiver Education Goal Demonstrate Post-Op Precautions,Caregiver Independent Assisting Patient Days to Meet Goals 10 Frequency of Treatment Frequency Of Treatment Once a Day Treatment Plan OT Treatment Plan ADL Training,Functional Cognition Training,Functional Mobility,Patient/Family Education,Discharge Planning Discharge Recommendations OT Discharge Recommendations Home with Assistance,SNF Rehab Other Discharge Recommendations Pending caregiver training and progress skilled rehab versus home with assist. Home Equipment Needs Barriatric fww, BSC Transportation Needs at Discharge Wheelchair/Cabulance
[2020-10-20] MEDS: ALBUTEROL HFA MDI 60 PUFF/8 GM INHALER INH (09:35)
[2020-10-20] MEDS: TIOTROPIUM BROMIDE 18 MCG INHALER INH (09:35)
[2020-10-20] MEDS: FLUTICASONE/SALMETEROL 500/50 60 PUFF DISKUS INH (09:35)
[2020-10-20 09:36] VITALS: PULSE 92; RESP 14; O2SAT 93
--- NOTE | 2020-10-20 10:16 | P.DS_ITS ---
History of Present Illness History of Present Illness Date Patient Seen: 10/20/20 Time Patient Seen: 10:17 Chief complaint: LUMBAR SURGERY Narrative: Pain 03/16. Denies fever or chills. No nausea or vomiting. Discharge Providers Provider Date of admission: 10/17/20 06:13 Discharge Date: 10/20/20 Primary care physician: Esperanza Heath PA-C Consults: 10/10/20 16:58 Consult to Anesthesiology Routine Comment: Surgeon Request Consulting Provider: Anesthesiologist Reason for consultation: Surg: Cardiac Review Has provider been notified: Yes Consult to Respiratory Therapy Evaluate & Treat Comment: Physician Instructions: Evaluate and treat 10/17/20 07:18 Consult to Respiratory Therapy Evaluate & Treat Comment: Physician Instructions: Evaluate and treat 10/17/20 14:32 Consult to Occupational Therapy Evaluate & Treat Comment: Physician Instructions: Evaluate and treat Consult to Physical Therapy Evaluate & Treat Comment: Physician Instructions: Evaluate and Treat Discharge provider: Kleber Rivas PA-C Summary Hospital Course Discharge Diagnosis: . L4-5 spondylolisthesis 2. L4-5, L5-S1 spinal stenosis with neurogenic claudication 3. Epidural lipomatosis Morbid obesity with BMI 59 Chronic pain Diabetes Anxiety and depression Sleep apnea with use of continuous positive airway pressure Hospital Course: 1. L4-5, L5-S1 Postero-lateral and posterior interbody fusion 2. L4-5, L5-S1 interbody cage placement. 3. L4-5, L5-S1 decompressive laminectomy with bilateral facetecomies 4. L4-5, L5-S1 Posterior segmental instrumentation 5. Alpine of bone marrow from iliac crest 6. Utilization of microsurgical technique and operating microscope Same procedure as scheduled: Yes Indications: Patient has been having chronic back pain and worsening lumbar radiculopathy. Patient failed multiple conservative management with worsening pain weakness and numbness in her lower extremity. Patient has been having difficulty performing activity of daily living. After discussing risks benefits of treatment options, patient elected proceed with surgery. Surgeon: Ada Mckeon Supervisor Compounding And Finishing: Crystal Ojeda Click Yes if Unassisted: No Anesthesia Type: General Operative Notes Closure Type: primary Specimen(s): none sent Prosthetic devices, grafts, tissues, transplants, or devices: Globus revolve screws, Rise cages Applied: catheter Estimated Blood Loss (mL): 100 Blood products transfused: none Patient admitted to the hospital and underwent above-mentioned procedure on October 17, 2020. Patient back in her room recovering well as in stable condition. Patient has been slow to mobilize secondary to weakness lower extremities and morbid obesity. Patient continues to be max assist with 3+ assist. [facility] in [facility] condition. Status at Discharge Cognitive/behavioral status at discharge: at baseline, oriented Functional status at discharge: uses cane/walker Overall status at discharge: patient is progressing back to baseline Time Spent with Patient Time spent: Less than 30 minutes Exam Vital Signs (past 8 hours): - 10/20/20 05:34 10/20/20 05:38 10/20/20 08:00 Temperature 98.2 F 97.3 F L Pulse Rate 101 H 95 H Respiratory Rate 18 16 Blood Pressure 120/66 123/61 Pulse Oximetry 96 94 10/20/20 09:36 Temperature Pulse Rate 92 H Respiratory Rate 14 Blood Pressure Pulse Oximetry 93 Oxygen Delivery Method Room Air Oxygen Flow Rate 0 Narrative Exam Narrative: Morbidly obese female resting comfortably in bedside chair in no apparent distress. Lumbar dressing is clean, dry and intact. Motor functions intact distal bilateral lower extremities. Sensation grossly intact to light touch bilateral lower extremities. Objective Labs Result Diagrams: 10/18/20 06:52 PFSH Medical History Anemia Anxiety and depression Arthritis Asthma, severe persistent Chronic pain Chronic rhinitis Diabetes Diverticulitis SMITH (dyspnea on exertion) Environmental allergies GERD (gastroesophageal reflux disease) Hiatal hernia History of gastritis HTN (hypertension) Hyperlipidemia Insomnia Iron deficiency anemia Leukocytosis Metabolic syndrome Migraines Morbid obesity with body mass index (BMI) of 50.0 to 59.9 in adult (07/25/16) MRSA (methicillin resistant Staphylococcus aureus) (~2010) Osteoarthritis Peripheral edema Recent urinary tract infection RLS (restless legs syndrome) Sleep apnea with use of continuous positive airway pressure (CPAP) Tachycardia Vertigo Surgical History History of bilateral tubal ligation History of colon surgery (~2010) History of colonoscopy Hx of cholecystectomy Hx of tonsillectomy Social History household members: family Smoking Status: Never smoker alcohol intake: current Discharge Assessment & Plan Assessment and Plan Assessment: Postop day 3 status post lumbar fusion. Morbid obesity. Progressing slower than expected. Plan of Treatment: [facility]. Discharge Plan Discharge Plan Patient Disposition: SNF Transfer to: [facility] Consult as needed: Dental, Mental health, Podiatry and Vision Discharge orders & Medications Prescriptions: New acetaminophen 325 mg Tablet 650 mg PO Q6HR PRN (Reason: Pain, Mild (1-3)) Qty: 60 RF: 0 hydromorphone 2 mg Tablet 2 mg PO Q4HR PRN (Reason: Pain, Severe (7-10)) Qty: 60 RF: 0 docusate sodium [DOK] 100 mg Capsule 100 mg PO BID Qty: 30 RF: 0 hydroxyzine pamoate 25 mg Capsule 25 mg PO Q4HR PRN (Reason: Nausea And Vomiting) Qty: 30 RF: 0 Continued venlafaxine 100 mg tablet 150 mg PO DAILY RF: 0 Zyrtec 10 mg capsule 10 mg PO BID RF: 0 metformin [Glucophage] 500 mg tablet 500 mg PO BIDCC Qty: 60 RF: 2 sumatriptan succinate [Imitrex] 50 mg tablet See Rx Instructions PO .COMPLEX Qty: 10 RF: 1 montelukast [Singulair] 10 mg tablet 10 mg PO QDAY Qty: 30 RF: 2 omeprazole 40 mg Capsule,Delayed Release(Dr/Ec) 40 mg PO DAILY RF: 0 Nebulizer: Home Unit See Rx Instructions .ROUTE .COMPLEX RF: 0 celecoxib [Celebrex] 200 mg capsule 200 mg PO BEDTIME RF: 0 Nucala Q4W RF: 0 tiotropium bromide 2.5 mcg/actuation Mist 2 puff INHALATION DAILY RF: 0 multivitamin Tablet 1 tab PO DAILY RF: 0 ipratropium-albuterol 0.5 mg-3 mg(2.5 mg base)/3 mL solution for nebulization 3 ml INHALATION QID PRN (Reason: Breathing) RF: 0 tizanidine 4 mg tablet 4 mg PO TID PRN (Reason: Muscle Spasm) RF: 0 clonazepam 0.5 mg tablet 0.5 mg PO BID RF: 0 amitriptyline 25 mg tablet 25 mg PO DAILY RF: 0 fluticasone propion-salmeterol [Advair Diskus] 500-50 mcg/dose Blister With Device 2 inh INHALATION BID RF: 0 hydrochlorothiazide 12.5 mg Capsule 12.5 mg PO DAILY RF: 0 docusate sodium 100 mg Capsule 200 mg PO BEDTIME RF: 0 metoprolol succinate 25 mg tablet extended release 24 hr 25 mg PO BID RF: 0 albuterol sulfate [ProAir HFA] 90 mcg/actuation Hfa Aerosol Inhaler 2 puff INHALATION Q4H PRN (Reason: Breathing) RF: 0 vitamin B complex Capsule 1 cap PO DAILY RF: 0 cholecalciferol (vitamin D3) 25 mcg (1,000 unit) Capsule 25 mcg PO DAILY RF: 0 calcium citrate [Calcitrate] 200 mg (950 mg) tablet 200 mg PO BID RF: 0 rosuvastatin 5 mg tablet 5 mg PO DAILY RF: 0 losartan [Cozaar] 100 mg tablet 100 mg PO DAILY RF: 0 ropinirole 4 mg tablet 4 mg PO BEDTIME RF: 0 venlafaxine 75 mg Tablet 75 mg PO DAILY RF: 0 albuterol sulfate 2.5 MG/3 ML solution for nebulization 3 ml INH Q4HP PRN (Reason: Shortness Of Breath Or Wheezing) RF: 0 Discontinued ondansetron HCl [Zofran] 4 mg tablet 4 mg PO Q8H PRN (Reason: nausea and vomiting) Qty: 10 RF: 0 aspirin [Aspirin Child] 81 mg Tablet,Chewable 81 mg PO DAILY RF: 0 hydrocodone-acetaminophen [[place]] 5 MG/325 MG tablet 1 tab PO Q4H PRN (Reason: Pain) RF: 0 Follow up/Referrals: Ada Mckeon MD [Physician] - (2 weeks) Esperanza Heath PA-C [Primary Care Provider] - Discharge Health Status Multidrug resistant organism: No MDRO Diet/Activity/Treatments Diet: Carb-consistent/Diabetic Liquid consistency: Normal/Thin Food texture: Regular Activity: WBAT, limit bending, twisting, lifting Cold/Heat Therapy: ice as needed Skin/Wound/Dressing Care Report to your healthcare provider any signs of infection, such as:: chills, fever, night sweats, increased pain, unusual drainage and unusual redness Dressing: keep clean and dry Special Rehabilitation Services Reason for rehabilitation: Post-operative therapy Rehab type: Physical therapy and Occupational therapy Visit Report/Discharge Packet Instructions: DI for Prescription Opioid Use, DI for Transforaminal Lumbar Interbody Fusion Stand Alone Forms: Surgery Discharge Discharge Data Primary Care Provider: Esperanza Heath VTE Deep Vein Thrombosis/Pulmonary Embolism Present on Admission: No
[2020-10-20] MEDS: BISACODYL 10 MG SUPP PR (10:44)
[2020-10-20] MEDS: VITAMIN B COMPLEX 1 CAPSULE 1 CAP PO (10:44)
--- NOTE | 2020-10-20 10:58 | CM.DPC ---
DCP Cont: Patient is to be discharged to [facility] today. She will need updated COVID, let Kleber Rivas ortho PAC know, and he will order. Spoke to February at [facility], and turkey picker time is 1330. Updated white board at main nurses station, COVID pending. Orders completed. Faxed med prescriptions, as well as signed orders, PASSR, and DC Summary to [facility]. Will update patient after her P.T. session, for she will also need to sign updated IMM. P: Patient is to be discharged to [facility] today. Will fax over COVID results when they are in. Elaine Valenzuela RN/Insurance Loss Assessor
[2020-10-20 11:15] LABS: COVID19 -Nasal RAPID Negative (Negative)
[2020-10-20 11:33] VITALS: BP 122/60; PULSE 93; RESP 17; TEMP 36.6; O2SAT 95
--- NOTE | 2020-10-20 11:34 | PT.IPTN ---
Current Diagnoses Metabolic syndrome (10/17/20) Obstructive sleep apnea (adult) (pediatric) (10/17/20) Essential (primary) hypertension (10/17/20) Unspecified asthma with (acute) exacerbation (10/17/20) Unspecified asthma with status asthmaticus (10/17/20) Gastro-esophageal reflux disease without esophagitis (10/17/20) Spinal stenosis, lumbar region without neurogenic claudication (10/17/20) Tachycardia, unspecified (10/17/20) Dyspnea, unspecified (10/17/20) Surgery Performed Operation Date: 10/17/20 07:45 Actual Procedures p L4-5, L5-S1 TLIF w/ posterior instrumentation - Ada Mckeon MD Physical Therapy Treatment Note M2 PT-IP Current Condition Start: 10/18/20 08:49 Freq: NEEDED Status: Active Protocol: Document 10/18/20 09:55 AW (Rec: 10/18/20 12:40 AW [id number]) Physical Therapy Current Condition Current Condition Evaluation Date 10/18/20 Treatment Diagnosis L4-L5 L5-S1 TLIF; difficulty in walking Onset Date 10/17/20 Precautions Lumbar Precautions Log Roll,No Twisting,Limit Bending,Lifting Restriction of 10 lbs,Gait Belt above Incisional Area M3 PT-IP Subjective Start: 10/18/20 08:49 Freq: NEEDED Status: Active Protocol: Document 10/20/20 10:46 LJ (Rec: 10/20/20 11:34 LJ [id number]) Subjective Physical Therapy Visit Type Type Treatment Note Visit Start Time 10:46 Visit Stop Time 11:03 Total Visit Minutes 17 Physical Therapy Visit Comments Patient Comments Pt is willing to participate with therapy Therapy Pain Assessment Pain When Pain Assessed During Mobility Pain Present Pain Present Pain Reported M4 PT-IP Mobility and Gait Start: 10/18/20 08:49 Freq: NEEDED Status: Active Protocol: Document 10/20/20 10:46 LJ (Rec: 10/20/20 11:34 LJ [id number]) PT-Transfer Assessment Sit to and From Stand Sit to and from Stand Contact Guard Assistance,1 Person Assistance,Use of Upper Extremities Equipment Transfer Assistive Device Gait Belt,Front Wheeled Walker Orthotic/Prosthetic Devices or Brace: No Transfers Transfer Destination Chair Transfer Technique Stand Step Pivot Transfer Ability Level of Assist Contact Guard Assistance,1 Person Assistance,Use of Upper Extremities Comments Mobility Comments Pt standing in front of chair with nursing x2 for suppository insertion. Pt willing to attempt walking in room. With chair follow, pt ambulated slowly around bed and half way back then requested to sit in chair. Pt sat down slowly with good control. During ambulation pt was using pursed lip breathing technique. She was wheeled back to the bedside and left with all needs within reach. Gait Assessment Gait Gait Assistance Required: Contact Guard Assist,Minimum Assistance,1 Person Assist Distance (Feet) 30 Able to Maintain Weight Bearing Status Yes During Gait Assistive Devices Assistive Device Gait Belt,Front Wheeled Walker Orthotic/Prosthetic Devices or Brace: No Gait Deviations General Gait Pattern Decreased Stride Length, Decreased Feet Clearance,Step- to Gait,Wide Based Gait Factors Limiting Gait Function Factors Limiting Gait Function Decreased Activity Tolerance, Decreased Strength,Limited Range of Motion,Pain,Poor Balance Comments Gait Comments see mobility section Stair Climbing Assessment Comments Stair Climbing Comments Not assessed. No stairs at home. M5 PT-IP Objective Assessments Start: 10/18/20 08:49 Freq: NEEDED Status: Active Protocol: Document 10/18/20 09:55 AW (Rec: 10/18/20 12:51 AW [id number]) Orientation Orientation/Cognition Level of Alertness Alert Orientation Name,Day of Week,Place, Situation Language Function Ability No Deficits Noted Safety Awareness Understands Safety Issues Memory Description No Deficits Noted Gross Range of Motion Lower Extremity ROM Assessment Bilaterally Impaired Strength Lower Extremity Strength Assessment Bilaterally Impaired Hip 3+/5 Knee 4-/5 Ankle R 4/5; L 4-/5 Sensation Assessment Sensation Gross Sensation WNL Comments Sensation Comments Pt denied numbness M6 PT-IP Treatment Start: 10/18/20 08:49 Freq: NEEDED Status: Active Protocol: Document 10/20/20 10:46 A[place]LAIDE (Rec: 10/20/20 11:34 LJ [id number]) Physical Therapy Treatment Education Education Provided Safety M7 PT-IP Assessment and Plan Start: 10/18/20 08:49 Freq: NEEDED Status: Active Protocol: Document 10/20/20 10:46 [place] (Rec: 10/20/20 11:34 LJ [id number]) PT Summary Assessment and Plan Potential Rehabilitation Potential Good Status of Condition at Evaluation Evolving Summary Impairments Pain,ROM,Strength,Balance,Bed Mobility,Transfers,Gait, Activity Tolerance Progress Towards Goals Slow Progress due to Pain,Slow Progress due to Activity Tolerance Assessment Summary Pt has improved with gait being able to more than double the distance. She moves slowly but safely. She is having difficulty staying awake and focused and fell asleep within seconds after sitting in the chair. She still requires assist x2 for sit to stand but is able to control stand to sit well with CGA. She will still require SNF for regaining strength and greater independence Goals Bed Mobility Goal Minimal Assistance Transfer Goal Contact Guard Assistance,Front Wheeled Walker Gait Goal Contact Guard Assistance,Front Wheel Walker Gait Distance 100 Days to Meet Goals 8 Frequency of Treatment Frequency Of Treatment Twice a Day Treatment Plan Physical Therapy Treatment Plan Bed Mobility Training,Transfer Training,Gait Training, Therapeutic Exercise,Balance Retraining,Post Op Education, Discharge Planning,Hot or Cold Pack,Neuromuscular Re-ed, Manual Therapy Recommendations To Nursing Amount of Assist Needed 3 or More Person Assist Discharge Recommendations PT Discharge Recommendations SNF Rehab Transportation Needs at Discharge Wheelchair/Cabulance
[2020-10-20] MEDS: HYDROMORPHONE 2 MG TABLET PO (12:36)
--- NOTE | 2020-10-20 13:51 | PC.NURSE ---
Patient alert, oriented, given suppository for no BM since 10/16. Patient had no BM, just flatus. BT+. Given 2mg PO dilaudid at 1230 for backpain 02/14. Report called to Katelin at [facility], patient taken via wc to vehicle driven by facility staff, patient had all her belongings,ipad was in patients belongings.
== END 2020-10-20 14:01 | DRG 454 ==
PROVIDERS: Admitting Provider Orthopaedic Surgery Orthopaedic Surgery of the Spine; PCP Physician Assistant; Referring Provider Physician Assistant; Visit Provider Orthopaedic Surgery Orthopaedic Surgery of the Spine
PROC: 0SG00AJ Fusion of Lumbar Vertebral Joint with Interbody Fusion Device, Posterior Approach, Anterior Column, Open Approach (ICD-10-PCS; principal; 2020-10-17 07:45)
DX: M48.061 Spinal stenosis, lumbar region without neurogenic claudication (principal); Z68.43 Body mass index [BMI] 50.0-59.9, adult; I10 Essential (primary) hypertension; E11.9 Type 2 diabetes mellitus without complications; J45.50 Severe persistent asthma, uncomplicated; K21.9 Gastro-esophageal reflux disease without esophagitis; M43.16 Spondylolisthesis, lumbar region; F32.9 Major depressive disorder, single episode, unspecified; E66.01 Morbid (severe) obesity due to excess calories; G89.29 Other chronic pain; G47.33 Obstructive sleep apnea (adult) (pediatric); E88.2 Lipomatosis, not elsewhere classified; Z79.84 Long term (current) use of oral hypoglycemic drugs; Z20.822 Contact with and (suspected) exposure to COVID-19
CPT/HCPCS: 36415; 72100; 76000; 82962; 83036; 85014; 85018; 87635; 94150; 94640; 94760; 97116; 97162; 97165; 97530; 97535; C1776; C9803; A9270; C9290; J0131; J0330; J1100; J1170; J2250; J2270; J2405; J2704; J3010

== ENCOUNTER → 2020-10-31 11:36 | Outpatient (CLI) | payer MEDICARE, OTHER, SELFPAY ==
[2020-10-17 14:47] VITALS: BMI 59.0
--- NOTE | 2020-10-31 11:39 | DI.MG.S_ITS ---
BILATERAL DIGITAL SCREENING MAMMOGRAM 3D/2D WITH CAD: 10/31/2020 CLINICAL: Routine screening. Family history of breast cancer. Comparison is made to exams dated: 10/15/2017 mammogram, 01/22/2015 mammogram, and 01/19/2014 mammogram - [facility]. There are scattered fibroglandular elements in both breasts. Current study was also evaluated with a Computer Aided Detection (CAD) system. There is a benign lymph node in the left breast. There also are benign vascular calcifications in both breasts. No significant masses, calcifications, or other findings are seen in either breast. There has been no significant interval change. IMPRESSION: BENIGN There is no mammographic evidence of malignancy. A 1 year screening mammogram is recommended. This exam was interpreted at Station ID: [id number]. NOTE: For mammograms, a report in lay terms will be sent to the patient. Approximately 15% of breast malignancies will not be visualized mammographically. In the management of a palpable breast mass, a negative mammogram must not discourage biopsy of a clinically suspicious lesion. Electronically Signed By: Lizzy robbins/massimo:10/31/2020 13:25:03 copy to: Antwon Barton letter sent: Normal Exam ACR BI-RADS Category 2: Benign Finding(s) [id number]
== END ==
PROVIDERS: PCP Physician Assistant; Referring Provider Physician Assistant; Visit Provider Physician Assistant
DX: Z12.31 Encounter for screening mammogram for malignant neoplasm of breast (principal); Z80.3 Family history of malignant neoplasm of breast
CPT/HCPCS: 77063; 77067

== ENCOUNTER → 2022-05-10 12:40 | Outpatient (CLI) | payer MEDICARE, OTHER, SELFPAY ==
[2020-10-17 14:47] VITALS: BMI 59.0
[2022-05-10 13:00] LABS: Add Manual Diff / Slide Review NO; Basophils Percent Auto 0.9 % (0-2); Eosinophils Percent Auto 1.2 % (2-4); Hematocrit 40.2 % (36-46); Hemoglobin 13.1 g/dL (12.0-16.0); Lymphocytes Percent Auto 30.8 % (25-40); Mean Corpuscular HGB Conc 32.5 % (30-36); Mean Corpuscular Hemoglobin 25.2 PG (26-34); Mean Corpuscular Volume 77.6 fL (80-100); Neutrophils Percent Auto 60.1 % (50-75); Platelet Count 337 X10^3/uL (150-400); Red Blood Cell Count 5.18 X10^6/uL (4.0-5.2); White Blood Cell Count 15.6 X10^3/uL (4.5-11.0)
[2022-05-10 13:01] LABS: Basophils Absolute Auto 100 /uL (0-100); Eosinophils Absolute Auto 200 /uL (0-450); Lymphocytes Absolute Auto 4800 /uL (1100-4500); Monocytes Absolute Auto 1100 /uL (0-900); Neutrophils Absolute Auto 9400 /uL (1500-7000)
[2022-05-10 13:08] LABS: Hemoglobin A1C% w Est Avg Glu 6.3 % (4.0-6.0)
[2022-05-10 13:18] LABS: Alanine Aminotransferase 43 IU/L (<35); Albumin 4.4 g/dL (3.5-5.0); Albumin Globulin Ratio 1.2 (1.0-2.8); Alkaline Phosphatase 114 U/L (38-126); Aspartate Aminotransferase 50 IU/L (14-36); BUN Creatinine Ratio 14.3 (6-22); Bilirubin Total 0.4 mg/dL (0.2-1.3); Blood Urea Nitrogen 10 mg/dL (7-17); Calcium 9.1 mg/dL (8.4-10.2); Carbon Dioxide 30 mmol/L (22-32); Chloride 98 mmol/L (98-107); Estimated Glomerular Filt Rate > 60 mL/min (>60); Globulin 3.8 g/dL (1.7-4.1); Glucose 117 mg/dL (70-100); HEMOLYSIS < 15 (0-50); Potassium 4.3 mmol/L (3.4-5.1); Sodium 135 mmol/L (137-145); Total Protein 8.2 g/dL (6.3-8.2)
[2022-05-10 13:40] LABS: Creatinine Urine Random 36.3 mg/dL
[2022-05-10 13:47] LABS: Microalbumin Urine Random < 0.6 mg/dL (0-1.6)
== END ==
PROVIDERS: PCP Physician Assistant; Referring Provider Physician Assistant; Visit Provider Physician Assistant
DX: E11.9 Type 2 diabetes mellitus without complications (principal); D72.829 Elevated white blood cell count, unspecified
CPT/HCPCS: 36415; 80053; 82043; 82570; 83036; 85025

== ENCOUNTER → 2023-02-06 07:51 | Outpatient (CLI) | payer MEDICARE, OTHER, SELFPAY ==
[2020-10-17 14:47] VITALS: BMI 59.0
--- NOTE | 2023-02-06 | DI.US.S_ITS ---
PROCEDURE: US ABDOMEN LIMITED INDICATIONS: ELEVATED LIVER FUNCTION TEST TECHNIQUE: Real-time scanning was performed of the abdominal and retroperitoneal organs, with image documentation. COMPARISON: None. FINDINGS: Liver: Increased liver echogenicity with posterior attenuation, most consistent with moderate to severe steatosis. Gallbladder: Absent Biliary ducts: Intrahepatic bile ducts are non-dilated. Extrahepatic bile duct caliber measures 5 mm. Normal is 6-7 mm or less in diameter, or 10 mm or less post-cholecystectomy. Pancreas: Visualized portions of the pancreas are sonographically normal. Miscellaneous: No free abdominal fluid. IMPRESSION: Hepatic steatosis. In the absence of alcohol use or other confounding factors, elevated LFTs may indicate non-alcoholic steatohepatitis (GARVEY). Dictated by: Jerome Rob M.D. on 02/06/2023 at 9:01 Approved by: Jerome Rob M.D. on 02/06/2023 at 9:02
--- NOTE | 2023-02-06 | DI.MG.S_ITS ---
BILATERAL DIGITAL SCREENING MAMMOGRAM 3D/2D WITH CAD: 02/06/2023 CLINICAL: Routine screening. Family history of breast cancer. Comparison is made to exams dated: 10/31/2020 mammogram, 10/25/2018 mammogram, and 10/15/2017 mammogram - [facility]. There are scattered areas of fibroglandular density in both breasts (category b / 25%-50% glandular tissue). Current study was also evaluated with a Computer Aided Detection (CAD) system. There are benign vascular calcifications in both breasts. No significant masses, calcifications, or other findings are seen in either breast. There has been no significant interval change. IMPRESSION: BENIGN There is no mammographic evidence of malignancy. A 1 year screening mammogram is recommended. Based on the Tyrer Cuzick model (a risk assessment model) the patient's lifetime risk is 13.4% and her 10 year risk is 5.5%. According to the ACR, ACS, and NCCN guidelines, an annual breast MRI exam along with mammogram is recommended if the patient's lifetime risk is 20% or greater. This exam was interpreted at Station ID: [id number]. NOTE: For mammograms, a report in lay terms will be sent to the patient. Approximately 15% of breast malignancies will not be visualized mammographically. In the management of a palpable breast mass, a negative mammogram must not discourage biopsy of a clinically suspicious lesion. Electronically Signed By: Alex soria/massimo:02/06/2023 12:21:09 copy to: Antwon Barton letter sent: Normal Exam ACR BI-RADS Category 2: Benign Finding(s) [id number]
== END ==
PROVIDERS: PCP Physician Assistant; Referring Provider Physician Assistant; Visit Provider Physician Assistant
DX: Z12.31 Encounter for screening mammogram for malignant neoplasm of breast (principal); Z80.3 Family history of malignant neoplasm of breast; K76.0 Fatty (change of) liver, not elsewhere classified; R79.89 Other specified abnormal findings of blood chemistry
CPT/HCPCS: 76705; 77063; 77067

== ENCOUNTER → 2024-05-17 11:47 | Outpatient (CLI) | payer MEDICARE, OTHER, SELFPAY ==
[2020-10-17 14:47] VITALS: BMI 59.0
--- NOTE | 2024-05-17 11:54 | DI.RAD.S_ITS ---
PROCEDURE: XR LUMBAR SPINE 2-3V INDICATIONS: Lumbago with sciatica, left side TECHNIQUE: 3 views of the lumbar spine were acquired. COMPARISON: [facility], CR, XR LUMBAR SPINE 2-3V, 10/17/2020, 11:30. FINDINGS: Bones: L4-5 and L5-S1 anterior/posterior fusion change provided by interbody rate cage, pedicle screws and short interbody strut. Alignment is anatomic. No osseous abnormality. Soft tissues: Normal IMPRESSION: L4-5/L5-S1 fusion changes. Expected postoperative appearance. Dictated by: Lyndon Coreas M.D. on 05/18/2024 at 15:45 Approved by: Lyndon Coreas M.D. on 05/18/2024 at 15:47
--- NOTE | 2024-05-17 11:54 | DI.RAD.S_ITS ---
PROCEDURE: XR SACROILIAC JOINT MIN 3V INDICATIONS: Lumbago with sciatica, left side TECHNIQUE: 3 views of the sacroiliac joints were acquired. COMPARISON: None. FINDINGS: Bones: There is mild subcortical irregularity of the left SI joint suggesting unilateral sacroiliitis. Right SI joint is unremarkable. No osseous abnormality. Soft tissues: Overlying bowel gas pattern is normal. No suspicious soft tissue densities. IMPRESSION: Probable left SI sacroiliitis . Consider CT or MRI Dictated by: Lyndon Coreas M.D. on 05/18/2024 at 15:49 Approved by: Lyndon Coreas M.D. on 05/18/2024 at 15:50
--- NOTE | 2024-05-17 11:54 | DI.RAD.S_ITS ---
PROCEDURE: XR HIP W PEL IF DONE LT 2V INDICATIONS: Lumbago with sciatica, left side TECHNIQUE: 2 views of the hip were acquired. COMPARISON: None. FINDINGS: Bones: No fractures or dislocations. No suspicious bony lesions. The visualized pelvic ring appears intact. Soft tissues: No suspicious soft tissue calcifications or masses. IMPRESSION: No acute bony abnormality. Dictated by: Lyndon Coreas M.D. on 05/18/2024 at 15:47 Approved by: Lyndon Coreas M.D. on 05/18/2024 at 15:48
== END ==
PROVIDERS: PCP Physician Assistant; Referring Provider Physician Assistant; Visit Provider Physician Assistant
DX: M54.42 Lumbago with sciatica, left side (principal); Z98.1 Arthrodesis status
CPT/HCPCS: 72100; 72202; 73502

== ENCOUNTER → 2024-07-06 15:20 | Outpatient (CLI) | payer MEDICARE, OTHER, SELFPAY ==
[2020-10-17 14:47] VITALS: BMI 59.0
--- NOTE | 2024-07-06 15:26 | DI.RAD.S_ITS ---
PROCEDURE: XR CHEST 2V INDICATIONS: COUGH TECHNIQUE: 2 views of the chest were acquired. COMPARISON: [facility], CR, XR CHEST 2V, 01/13/2020, 17:51. FINDINGS: Surgical changes and devices: Right shoulder arthroplasty. Lungs and pleura: Lungs are clear. No pleural effusions or pneumothorax. Mediastinum: Mediastinal contours are normal. Heart size is normal. Bones and chest wall: No suspicious bony abnormalities. Soft tissues appear unremarkable. IMPRESSION: No acute cardiopulmonary abnormality is seen. Dictated by: Jerome Rob M.D. on 07/06/2024 at 16:07 Approved by: Jerome Rob M.D. on 07/06/2024 at 16:08
== END ==
PROVIDERS: PCP Physician Assistant; Referring Provider Physician Assistant; Visit Provider Physician Assistant
DX: R05.9 Cough, unspecified (principal); R06.2 Wheezing
CPT/HCPCS: 71046